=== PATIENT | male | born 1955 | race Caucasian/White ===

== ENCOUNTER 2017-05-27 16:26 | Emergency (ER) | payer BC ==
[2017-05-27 16:49] VITALS: BP 167/78; RESP 17; TEMP 97.6
[2017-05-27] MEDS ORDERED: methylPREDNISolone SOD SUCCI 125 MG/2 ML VIAL IM STA (17:10)
[2017-05-27] MEDS ORDERED: IPRATROPIUM-ALBUTEROL 3 ML NEB INHALATION STA (17:10)
--- NOTE | 2017-05-27 17:12 | ED ---
General Adult HPI - General Chief complaint: Upper Respiratory Infection Stated complaint: Cough Time Seen by Provider: 05/27/17 17:05 Source: patient, RN notes reviewed Mode of arrival: ambulatory Limitations: no limitations - History of Present Illness Initial comments: Patient is a 62-year-old male who presents emergency room today with cough congestion over the last 2 weeks. He does admit that he had an upper respiratory infection and started things off prior to weeks ago. He states the last 2 weeks she's had persistent call. Does admit to sputum production that is been green in color. Patient does admit that he follow-up with the family doctor who called in a Z-Lauro and steroids which she has been on for the past 3 days with little improvement. Patient denies any recent fever, chills, shortness of breath, chest pain, back pain, abdominal pain, nausea or vomiting, numbness or tingling, dysuria or hematuria, or any other complaints. - Related Data Previous Rx's Medication Instructions Recorded Albuterol Inhaler [Ventolin Hfa 1 - 2 puff INHALATION Q4-6H PRN #1 05/27/17 Inhaler] inhaler Albuterol Nebulized [Ventolin 2.5 mg INHALATION Q4H PRN 10 Days 05/27/17 Nebulized] nebu Tvvm-Xtcr-Tkg 6.25-5-10Mg/5Ml 5 ml PO Q4-6H 5 Days ml 05/27/17 [Phenergan VC with Codeine] predniSONE 50 mg PO DAILY #5 tab 05/27/17 Allergies Allergy/AdvReac Type Severity Reaction Status Date / Time meperidine [From Demerol] Allergy Rash/Hives Verified 05/27/17 16:49 Review of Systems ROS Statement: Those systems with pertinent positive or pertinent negative responses have been documented in the HPI. ROS Other: All systems not noted in ROS Statement are negative. Past Medical History Past Medical History: Diabetes Mellitus, GERD/Reflux, Hyperlipidemia, Hypertension History of Any Multi-Drug Resistant Organisms: None Reported Past Surgical History: Coronary Bypass/CABG, Joint Replacement Additional Past Surgical History / Comment(s): bilateral knees Past Psychological History: No Psychological Hx Reported Smoking Status: Never smoker Past Alcohol Use History: Occasional Past Drug Use History: None Reported General Exam - General Exam Comments Initial Comments: General: The patient is awake and alert, in no distress, and does not appear acutely ill. Eye: Pupils are equal, round and reactive to light, extra-ocular movements are intact. No nystagmus. There is normal conjunctiva bilaterally. No signs of icterus. Ears, nose, mouth and throat: There are moist mucous membranes and no oral lesions. Neck: The neck is supple, there is no tenderness or JVD. Cardiovascular: There is a regular rate and rhythm. No murmur, rub or gallop is appreciated. Respiratory: bilateral expiratory wheeze. respirations are non-labored, breath sounds are equal. No stridor, rales, or rhonchi. Musculoskeletal: Normal ROM, no tenderness. Strength 5/5. Sensation intact. Pulses equal bilaterally 2+. Neurological: A&O x 3. CN II-XII intact, There are no obvious motor or sensory deficits. Coordination appears grossly intact. Speech is normal. Skin: Skin is warm and dry and no rashes or lesions are noted. Psychiatric: Cooperative, appropriate mood & affect, normal judgment. Limitations: no limitations Course Vital Signs 05/27/17 05/27/17 05/27/17 16:46 17:22 17:32 Temperature 97.6 F Pulse Rate 63 63 65 Respiratory 17 Rate Blood Pressure 167/78 O2 Sat by Pulse 96 Oximetry Medical Decision Making - Medical Decision Making Patient reexamined at this time shows no signs of distress. His vital stable. Was given breathing treatment here and steroids. Patient will have his steroid changed from the Medrol Dosepak over to prednisone to see if this improves his symptoms. Will be given a cough medication of Phenergan codeine. His chest x- rays negative for any sign of pneumonia. Advised to continue the Z-Lauro. Patient will also be given an inhaler and albuterol for his nebulizer at home. He is advised faulted family doctor over the next 2 days if there is no improvement or return here to the emergency room symptoms increase worsen. He states understanding and is in agreement. Disposition Clinical Impression: Acute bronchitis Disposition: HOME SELF-CARE Condition: Good Instructions: Acute Bronchitis (ED) Additional Instructions: Please use medication as discussed. Please follow-up with family doctor in the next 2 days of symptoms have not improved. Please return to emergency room if the symptoms increase or worsen or for any other concerns. Prescriptions: Albuterol Inhaler [Ventolin Hfa Inhaler] 1 - 2 puff INHALATION Q4-6H PRN #1 inhaler PRN Reason: Cough Albuterol Nebulized [Ventolin Nebulized] 2.5 mg INHALATION Q4H PRN 10 Days nebu PRN Reason: Cough predniSONE 50 mg PO DAILY #5 tab Dsuh-Kfhm-Wwn 6.25-5-10Mg/5Ml [Phenergan VC with Codeine] 5 ml PO Q4-6H 5 Days ml Referrals: Jorge Urrutia DO [Primary Care Provider] - 1-2 days Time of Disposition: 18:01
--- NOTE | 2017-05-27 17:26 | XR ---
EXAMINATION TYPE: XR chest 2V DATE OF EXAM: 05/27/2017 COMPARISON: 09/12/2010 HISTORY: Cough TECHNIQUE: Frontal and lateral views of the chest are obtained. FINDINGS: There is no heart failure. There is some mild linear density at the left lung base. There are sternal wires. There is no evidence of pleural effusion. IMPRESSION: There is new mild scarring or subsegmental atelectasis at the left lung base compared to old exam. Normal heart.
[2017-05-27 17:33] VITALS: PULSE 65
== END 2017-05-27 18:09 | disposition home or self-care (01) ==
LOC: EC 16:26
DX: J20.9 Acute bronchitis, unspecified (principal); Z88.5 Allergy status to narcotic agent
CPT/HCPCS: 94640; 71046; 99283; 96372; J2930

== ENCOUNTER → 2018-03-02 | Outpatient (CLI) | payer BC ==
[2018-03-02 08:42] LABS: ALT 17 U/L (21-72); AST 17 U/L (17-59); Cholesterol 162 mg/dL (<200); Creatine Kinase 62 U/L (55-170); HDL Cholesterol 33 mg/dL (40-60); LDL Cholesterol,Calculated 90 mg/dL (0-99); Triglycerides 196 mg/dL (<150)
== END ==
LOC: LABWHC1 06:46
PROVIDERS: ATTEND Nurse Practitioner Adult Health
DX: E78.2 Mixed hyperlipidemia (principal)
CPT/HCPCS: 36415; 80061; 82550; 84450; 84460

== ENCOUNTER 2018-06-17 06:11 | Inpatient (IN) | payer BC ==
[2018-06-17] MEDS ORDERED: SODIUM CHLORIDE 0.9% 1,000 ML IV ONE (06:19)
[2018-06-17] MEDS ORDERED: MORPHINE SULFATE 4 MG/ML SYRINGE IVP STA (06:19)
[2018-06-17 06:39] LABS: Basophils # (A) 0.1 k/uL (0-0.2); Basophils % (A) 0 %; Eosinophils # (A) 0.1 k/uL (0-0.7); Eosinophils % (A) 1 %; HCT 40.8 % (39.0-53.0); HGB 13.4 gm/dL (13.0-17.5); Lymphocytes # (A) 1.6 k/uL (1.0-4.8); Lymphocytes % (A) 12 %; MCH 30.6 pg (25.0-35.0); MCHC 32.9 g/dL (31.0-37.0); Mean Platelet Volume 7.4; Monocytes # (A) 0.6 k/uL (0-1.0); Monocytes % (A) 4 %; Neutrophils # (A) 10.2 k/uL (1.3-7.7); Neutrophils % (A) 79 %; Platelet Count 253 k/uL (150-450); RBC 4.39 m/uL (4.30-5.90); RDW 13.7 % (11.5-15.5); WBC 12.9 k/uL (3.8-10.6)
[2018-06-17] MEDS ORDERED: HYDROmorphone 1 MG/ML 1 ML SYRINGE IM STA (06:51)
--- NOTE | 2018-06-17 06:51 | ED ---
Abdominal Pain HPI - General Chief Complaint: Abdominal Pain Stated Complaint: ABD PAIN Time Seen by Provider: 06/17/18 06:17 Source: patient Mode of arrival: ambulatory Limitations: no limitations - History of Present Illness Initial Comments: Swelling is a pleasant 63-year-old gentleman who returns to the emergency department today for reevaluation of persistent left lower quadrant abdominal pain. Patient was seen and evaluated for this yesterday he was diagnosed with an obstructing left ureteral stone. Patient received IV morphine with improvement in his pain yesterday is subsequently discharged home with [place]. Upon discharge home the patient had worsening pain nausea and vomiting, he was then called and upper surgeon for Zofran which improved his nausea but his pain is been uncontrollable throughout the night. Patient reports he took [place] last night and again early this morning with no improvement in his pain. He's been trying to take hot baths with no improvement in his pain. THis morning his pain became overwhelming so he returned to the ER for re-evaluation. - Related Data Home Medications Medication Instructions Recorded Confirmed Aspirin [Adult Low Dose Aspirin EC] 162 mg PO DAILY 06/16/18 06/17/18 Chromium Picolinate 800 mcg PO QAM 06/16/18 06/17/18 Ibuprofen [Motrin Ib] 800 mg PO TID PRN 06/16/18 06/17/18 Ibuprofen/Diphenhydramine HCl 2 cap PO HS 06/16/18 06/17/18 [Advil Pm Liqui-Gels] L.acidoph,Paracasei, B.lactis 4 cap PO BID 06/16/18 06/17/18 [Probiotic] Lisinopril [Zestril] 2.5 mg PO HS 06/16/18 06/17/18 Metoprolol Succinate [Toprol XL] 25 mg PO DAILY 06/16/18 06/17/18 Omeprazole 20 mg PO HS 06/16/18 06/17/18 Simvastatin [Zocor] 40 mg PO HS 06/16/18 06/17/18 metFORMIN HCL 1,000 mg PO BID 06/16/18 06/17/18 Previous Rx's Medication Instructions Recorded HYDROcodone/APAP 5-325MG [[place] 1 tab PO Q6HR PRN #12 tab 06/16/18 5-325] Tamsulosin [Flomax] 0.4 mg PO DAILY #30 cap 06/16/18 Allergies Allergy/AdvReac Type Severity Reaction Status Date / Time meperidine [From Demerol] Allergy Rash/Hives Verified 06/17/18 07:05 Review of Systems ROS Statement: Those systems with pertinent positive or pertinent negative responses have been documented in the HPI. ROS Other: All systems not noted in ROS Statement are negative. Past Medical History Past Medical History: Diabetes Mellitus, GERD/Reflux, Hyperlipidemia, Hypertension Additional Past Medical History / Comment(s): Kidney stones History of Any Multi-Drug Resistant Organisms: None Reported Past Surgical History: Coronary Bypass/CABG, Joint Replacement Additional Past Surgical History / Comment(s): bilateral knees Past Psychological History: No Psychological Hx Reported Smoking Status: Never smoker Past Alcohol Use History: Occasional Past Drug Use History: None Reported General Exam - General Exam Comments Initial Comments: Physical Exam GENERAL: Patient is well-developed and well-nourished. Patient appears uncomfortable, writhing in pain HENT: Normocephalic, Atraumatic. EYES: PERRL, EOMI PULMONARY: Unlabored respirations CARDIOVASCULAR: There is a regular rate and rhythm without any murmurs gallops or rubs. ABDOMEN: Tenderness to palpation left lower quadrant left flank SKIN: Redness of the skin on the abdomen secondary to heating pad use : Deferred NEUROLOGIC: Patient is alert and oriented x3. Moving all extremities spontaneously MUSCULOSKELETAL: Normal extremities with adequate strength and full range of motion. No lower extremity swelling or edema. No calf tenderness. PSYCHIATRIC: Normal psychiatric evaluation. Limitations: no limitations Limitations: no limitations Course Vital Signs 06/17/18 06/17/18 06:12 07:14 Temperature 98.1 F Pulse Rate 52 L 62 Respiratory 20 20 Rate Blood Pressure 139/80 171/109 O2 Sat by Pulse 94 L 96 Oximetry Medical Decision Making - Medical Decision Making She was seen and evaluated history is obtained from patient and review of medical record Labs yesterday indicated the patient's creatinine was increasing, in addition CT scan revealed a chronic obstruction of the right ureter with hydronephrosis on the right as well as an acute obstructing stone on the left Repeat labs ordered Morphine and Zofran were ordered Patient with no improvement in his pain with morphine, Dilaudid was ordered Labs resulted with continuing increasing creatinine now at 2.05 Patient care was discussed with Dr. Garcia whom the patient was supposed to see today, he agrees with plan for observation, patient to be made nothing by mouth for possible cystoscopy Patient and updated on plan and are agreeable Admission orders placed - Lab Data Result diagrams: 06/17/18 06:26 06/17/18 06:26 Lab Results 06/17/18 06/17/18 Range/Units 06:26 06:26 WBC 12.9 H (3.8-10.6) k/uL RBC 4.39 (4.30-5.90) m/uL Hgb 13.4 (13.0-17.5) gm/dL Hct 40.8 (39.0-53.0) % MCV 93.0 (80.0-100.0) fL MCH 30.6 (25.0-35.0) pg MCHC 32.9 (31.0-37.0) g/dL RDW 13.7 (11.5-15.5) % Plt Count 253 (150-450) k/uL Neutrophils % 79 % Lymphocytes % 12 % Monocytes % 4 % Eosinophils % 1 % Basophils % 0 % Neutrophils # 10.2 H (1.3-7.7) k/uL Lymphocytes # 1.6 (1.0-4.8) k/uL Monocytes # 0.6 (0-1.0) k/uL Eosinophils # 0.1 (0-0.7) k/uL Basophils # 0.1 (0-0.2) k/uL Sodium 142 (137-145) mmol/L Potassium 4.5 (3.5-5.1) mmol/L Chloride 107 (98-107) mmol/L Carbon Dioxide 25 (22-30) mmol/L Anion Gap 10 mmol/L BUN 19 (9-20) mg/dL Creatinine 2.05 H (0.66-1.25) mg/dL Est GFR (CKD-EPI)AfAm 39 (>60 ml/min/1.73 sqM) Est GFR (CKD-EPI)NonAf 33 (>60 ml/min/1.73 sqM) Glucose 165 H (74-99) mg/dL Calcium 10.1 (8.4-10.2) mg/dL Disposition Clinical Impression: Hydronephrosis with renal and ureteral calculous obstruction, HROACIO (acute kidney injury), Intractable abdominal pain, Nausea and vomiting, Calculus of kidney, Renal mass, Hydronephrosis Disposition: ADMITTED IP TO THIS HOSP Is patient prescribed a controlled substance at d/c from ED?: No Referrals: Jorge Urrutia DO [Primary Care Provider] - 1-2 days
[2018-06-17 06:53] LABS: Calcium 10.1 mg/dL (8.4-10.2); Potassium 4.5 mmol/L (3.5-5.1)
[2018-06-17] MEDS: ONDANSETRON 4 MG/2 ML VIAL IVP STA ×2 (06:58→09:27)
[2018-06-17] MEDS ORDERED: HYDROmorphone 0.5 MG/0.5 ML SYRINGE IVP PRN (07:29)
[2018-06-17] MEDS ORDERED: ONDANSETRON 4 MG/2 ML VIAL IVP PRN (07:29)
[2018-06-17] MEDS ORDERED: NALOXONE 0.4 MG/ML 1 ML VIAL IV PRN (07:29)
[2018-06-17] MEDS: SODIUM CHLORIDE 0.9% 1,000 ML IV SCH ×2 (08:43→17:12)
[2018-06-17] MEDS ORDERED: IV FLUID CONTINUATION 900 ML IV ONE (09:09)
[2018-06-17] MEDS ORDERED: fentaNYL (PF) 50 MCG/ML 2 ML AMP IV ONE ×2 (09:10→09:18)
--- NOTE | 2018-06-17 09:25 | P.GSHP ---
History of Present Illness H&P Date: 06/17/18 Chief Complaint: Left renal colic The patient is a 63-year-old white male seen in the emergency room yesterday with left renal colic. He was found to have left hydronephrosis due to a 4 mm left proximal ureteral calculus. He was discharged home and given an appointment to be seen in our office today. However, he presented back to the ER with intractable symptoms. His serum creatinine level has increased and he was thus admitted for surgical intervention. Incidentally, the computed tomography scan also showed marked right hydronephrosis due to a 10 x 14 mm right proximal ureteral calculus, as well as a 3.1 x 3.8 cm right solid renal mass. Thinning of the right renal parenchyma was noted. It is noteworthy that the serum creatinine level has been elevated since December 2016. The creatinine level was previously normal. It is possible that his rising creatinine level is the result of the right hydronephrosis, which appears to be long-standing given the thinning of the right renal parenchyma. - Constitutional Constitutional: Denies chills, Denies fever - Gastrointestinal Gastrointestinal: Reports nausea, Reports vomiting - Genitourinary (Female) Genitourinary: Reports flank pain, Reports hematuria, Reports kidney stones, Denies dysuria Past Medical History Past Medical History: Diabetes Mellitus, GERD/Reflux, Hyperlipidemia, Hypertension Additional Past Medical History / Comment(s): Kidney stones History of Any Multi-Drug Resistant Organisms: None Reported Past Surgical History: Coronary Bypass/CABG, Joint Replacement Additional Past Surgical History / Comment(s): bilateral knees Past Psychological History: No Psychological Hx Reported Smoking Status: Never smoker Past Alcohol Use History: Occasional Past Drug Use History: None Reported Medications and Allergies Home Medications Medication Instructions Recorded Confirmed Type Aspirin [Adult Low Dose Aspirin EC] 162 mg PO DAILY 06/16/18 06/17/18 History Chromium Picolinate 800 mcg PO QAM 06/16/18 06/17/18 History HYDROcodone/APAP 5-325MG [[place] 1 tab PO Q6HR PRN #12 tab 06/16/18 06/17/18 Rx 5-325] Ibuprofen [Motrin Ib] 800 mg PO TID PRN 06/16/18 06/17/18 History Ibuprofen/Diphenhydramine HCl 2 cap PO HS 06/16/18 06/17/18 History [Advil Pm Liqui-Gels] L.acidoph,Paracasei, B.lactis 4 cap PO BID 06/16/18 06/17/18 History [Probiotic] Lisinopril [Zestril] 2.5 mg PO HS 06/16/18 06/17/18 History Metoprolol Succinate [Toprol XL] 25 mg PO DAILY 06/16/18 06/17/18 History Omeprazole 20 mg PO HS 06/16/18 06/17/18 History Simvastatin [Zocor] 40 mg PO HS 06/16/18 06/17/18 History Tamsulosin [Flomax] 0.4 mg PO DAILY #30 cap 06/16/18 06/17/18 Rx metFORMIN HCL 1,000 mg PO BID 06/16/18 06/17/18 History Allergies Allergy/AdvReac Type Severity Reaction Status Date / Time meperidine [From Demerol] Allergy Rash/Hives Verified 06/17/18 07:05 Surgical - Exam Vital Signs Temp Pulse Resp BP Pulse Ox 98.1 F 52 L 20 139/80 94 L 06/17/18 06:12 06/17/18 06:12 06/17/18 06:12 06/17/18 06:12 06/17/18 06:12 - General well developed, well nourished, severe pain - Respiratory normal respiratory effort - Abdomen Abdomen: soft, tender (Left-sided tenderness to palpation), no masses, no guarding, no rigid, no rebound - Genitourinary normal penis with no external lesions, testicles non-tender - Psychiatric oriented to time, oriented to person, oriented to place, speech is normal, memory intact Results - Labs 06/17/18 06:26 06/17/18 06:26 Abnormal Lab Results - Last 24 Hours (Table) 06/17/18 06/17/18 Range/Units 06:26 06:26 WBC 12.9 H (3.8-10.6) k/uL Neutrophils # 10.2 H (1.3-7.7) k/uL Creatinine 2.05 H (0.66-1.25) mg/dL Glucose 165 H (74-99) mg/dL Diabetes panel 06/17/18 Range/Units 06:26 Sodium 142 (137-145) mmol/L Potassium 4.5 (3.5-5.1) mmol/L Chloride 107 (98-107) mmol/L Carbon Dioxide 25 (22-30) mmol/L BUN 19 (9-20) mg/dL Creatinine 2.05 H (0.66-1.25) mg/dL Glucose 165 H (74-99) mg/dL Calcium 10.1 (8.4-10.2) mg/dL Calcium panel 06/17/18 Range/Units 06:26 Calcium 10.1 (8.4-10.2) mg/dL Pituitary panel 06/17/18 Range/Units 06:26 Sodium 142 (137-145) mmol/L Potassium 4.5 (3.5-5.1) mmol/L Chloride 107 (98-107) mmol/L Carbon Dioxide 25 (22-30) mmol/L BUN 19 (9-20) mg/dL Creatinine 2.05 H (0.66-1.25) mg/dL Glucose 165 H (74-99) mg/dL Calcium 10.1 (8.4-10.2) mg/dL Adrenal panel 06/17/18 Range/Units 06:26 Sodium 142 (137-145) mmol/L Potassium 4.5 (3.5-5.1) mmol/L Chloride 107 (98-107) mmol/L Carbon Dioxide 25 (22-30) mmol/L BUN 19 (9-20) mg/dL Creatinine 2.05 H (0.66-1.25) mg/dL Glucose 165 H (74-99) mg/dL Calcium 10.1 (8.4-10.2) mg/dL - Imaging CT scan - abdomen: report reviewed, image reviewed Assessment and Plan (1) Bilateral ureteral calculi Current Visit: Yes Status: Acute Code(s): N20.1 - CALCULUS OF URETER SNOMED Code(s): 55318478 (2) Hydronephrosis with ureteral calculus Current Visit: Yes Status: Acute Code(s): N13.2 - HYDRONEPHROSIS WITH RENAL AND URETERAL CALCULOUS OBSTRUCTION SNOMED Code(s): 529825724 (3) Right renal mass Current Visit: Yes Status: Acute Code(s): N28.89 - OTHER SPECIFIED DISORDERS OF KIDNEY AND URETER SNOMED Code(s): 768627979 Plan: I have suggested to Mr. Craft that he undergo cystoscopy, left ureteroscopy with Holmium laser lithotripsy, and bilateral ureteral stent insertion. I am hopeful that his renal function will normalize, to perhaps allow a computed tomography scan with contrast to be performed for better evaluation of the right renal mass. It will also be helpful to assess the function of the right kidney once the obstruction has been relieved, to determine whether the patient would be better served with a partial nephrectomy or a total nephrectomy. The mass is peripherally located and appears to be amenable to a partial nephrectomy , so the consideration is whether the right kidney will function enough to make a partial nephrectomy worthwhile. If a partial nephrectomy is to be performed, he will first require ureteroscopy with laser lithotripsy to treat the proximal ureteral calculus. The rationale for this approach has been reviewed in detail with the patient and his . Potential risks of also been reviewed, which include anesthesia, bleeding, infection, ureteral injury, and inability to successfully fragment the left ureteral calculus or place ureteral stents. Time with Patient: Greater than 30
[2018-06-17] MEDS ORDERED: DEXAMETHASONE SOD PHOS (MDV) 100 MG/10 ML VIAL IV ONE (09:27)
[2018-06-17] MEDS ORDERED: SUCCINYLCHOLINE CHLORIDE 100 MG/5 ML SYR IV ONE (09:39)
[2018-06-17] MEDS ORDERED: NEOSTIGMINE 1 MG/ML 10 ML VIAL ONE (09:39)
[2018-06-17] MEDS ORDERED: ePHEDrine SULFATE/0.9% NACL/PF 50 MG/5 ML SYRINGE IV ONE (09:39)
[2018-06-17] MEDS ORDERED: PROPOFOL 10 MG/ML 20 ML VIAL IV ONE (09:39)
[2018-06-17] MEDS ORDERED: MIDAZOLAM 2 MG/2 ML VIAL ONE (09:39)
[2018-06-17] MEDS ORDERED: LIDOCAINE 1% INJ 10MG/ML (20 ML MDV) ONE (09:39)
[2018-06-17] MEDS ORDERED: GLYCOPYRROLATE 0.2 MG/ML 2 ML VIAL ONE (09:39)
[2018-06-17] MEDS ORDERED: ROCURONIUM BROMIDE 10 MG/ML 10 ML VIAL IV ONE (09:39)
[2018-06-17] MEDS ORDERED: SODIUM CHLORIDE 0.9% 50 ML with ceFAZolin 2,000 MG IV ONE ×2 (10:21)
[2018-06-17] MEDS ORDERED: LACTATED RINGERS 1,000 ML IV ONE (12:43)
--- NOTE | 2018-06-17 12:55 | P.OP ---
Date of Procedure: 06/17/18 Preoperative Diagnosis: Bilateral hydronephrosis secondary to bilateral ureteral calculi Postoperative Diagnosis: Same Procedure(s) Performed: Cystoscopy, bilateral ureteroscopy with Holmium laser lithotripsy, right ureteral stone basketing, bilateral ureteral stent insertion, fulguration of bleeders. Anesthesia: GETA Surgeon: Tyrell Garcia Estimated Blood Loss (ml): 20 IV fluids (ml): 1,200 Pathology: other Condition: stable Disposition: PACU Indications for Procedure: The patient is a 63-year-old white male seen in the emergency room yesterday with left renal colic. He was found to have left hydronephrosis due to a 4 mm left proximal ureteral calculus. He was discharged home and given an appointment to be seen in our office today. However, he presented back to the ER with intractable symptoms. His serum creatinine level has increased and he was thus admitted for surgical intervention. Incidentally, the computed tomography scan also showed marked right hydronephrosis due to a 10 x 14 mm right proximal ureteral calculus, as well as a 3.1 x 3.8 cm right solid renal mass. Thinning of the right renal parenchyma was noted. It is noteworthy that the serum creatinine level has been elevated since December 2016. The creatinine level was previously normal. It is possible that his rising creatinine level is the result of the right hydronephrosis, which appears to be long-standing given the thinning of the right renal parenchyma. Operative Findings: 4 mm left proximal ureteral calculus, fragmented completely. 10 x 14 mm calculus impacted within the right proximal ureter, successfully fragmented. Description of Procedure: The patient was taken to the operating room and placed in the dorsolithotomy position, with legs supported in Aleln stirrups. The external genitalia was prepped and draped sterilely. The 30 lens was used to introduce the 22-Bolivian Stortz cystoscopic sheath through the urethra and into the bladder under direct vision. The prostatic urethra showed evidence of mild lateral lobe enlargement , along with a high median bar that made entry into the bladder difficult.. The bladder was examined in its entirety. Both ureteral orifices were normal anatomic location and configuration. No tumors or foreign bodies were seen. And angled-tip 0.035 inch Glidewire was passed through the cystoscope. The left ureteral orifice was cannulated, and the Glidewire was advanced up to the left renal pelvis. An 11/13-Bolivian ureteral access catheter was passed over the wire, up to the proximal ureter. The mini flexible ureteroscope was passed through the ureteral access catheter sheath and up to the calculus within the left proximal ureter. The 200 micron Holmium laser probe was passed through the ureteroscope, and lithotripsy was performed. A portion of the calculus refluxed into the left renal pelvis. The ureteroscope was advanced, and fragmentation of the calculus was completed, leaving no residual calculus fragments exceeding 1-2 mm in size. The Glidewire was passed through the ureteral access catheter sheath, which was then removed. The Glidewire was backloaded into the cystoscope, which was passed into the bladder. A 26 cm, 6- [place]ian double-J ureteral stent was placed over the wire. Proper stent positioning was verified fluoroscopically and endoscopically. The Glidewire was then passed through the cystoscope once again, and the right ureteral orifice was cannulated. The Glidewire was advanced up to the large calculus at the ureteropelvic junction, but the Glidewire would not pass beyond the calculus. Therefore, the ureteral access catheter was passed over the wire , up to the proximal ureter, and ureteroscopy with laser lithotripsy was again performed. This calculus was quite dense, and impacted was significant edema of the ureter surrounding it. As fragments broke away, Stone basketing was performed using the 1.9-Bolivian nitinol basket. This was continued until the calculus had been fragmented completely, allowing passage of the ureteroscope into the renal pelvis. The Glidewire was passed through the ureteroscope, which was then withdrawn along with the ureteral access catheter sheath. A number of ureteral calculus fragments remained within the ureter. The Glidewire was backloaded into the cystoscope, which was passed into the bladder. A 26 cm, 6-Bolivian double-J ureteral stent was placed over the wire. Proper stent positioning was verified fluoroscopically and endoscopically. Oozing of the posterior vesicle neck was noted. This was controlled with the Bugbee electrode. The cystoscope was then removed, and an 18-Bolivian coud-tip Gonzalez catheter was placed. The return was pink tinged. The patient tolerated the procedure well and was taken to the recovery room in stable condition.
[2018-06-17 13:11] LABS: Glucose,Whole Blood 174 mg/dL (75-99)
--- NOTE | 2018-06-17 13:18 | FL ---
EXAMINATION TYPE: FL urography retrograde DATE OF EXAM: 06/17/2018 COMPARISON: NONE HISTORY: Bilateral stent insertion TECHNIQUE: Fluoroscopy. FINDINGS: Fluoroscopic guidance was provided during procedure performed 1 min 41 sec fl-1 image IMPRESSION: As Above.
[2018-06-17] MEDS ORDERED: HYDROcodone/APAP 5-325MG 1 EACH TAB PO PRN (13:37)
[2018-06-17] MEDS ORDERED: IBUPROFEN 800 MG TAB PO PRN (13:37)
[2018-06-17 14:14] LABS: Glucose,Whole Blood 184 mg/dL (75-99)
[2018-06-17 17:18] LABS: Glucose,Whole Blood 202 mg/dL (75-99)
[2018-06-17] MEDS ORDERED: PANTOPRAZOLE 40 MG TABLET PO SCH (17:30)
[2018-06-17] MEDS: INSULIN ASPART 100 UNIT/ML 1 ML 10 ML VIAL SQ SCH ×2 (17:30→22:02)
[2018-06-17 20:35] LABS: Glucose,Whole Blood 208 mg/dL (75-99)
[2018-06-17] MEDS ORDERED: LISINOPRIL 2.5 MG TAB PO SCH (21:00)
[2018-06-17] MEDS ORDERED: ATORVASTATIN 20 MG TAB PO SCH (21:00)
[2018-06-17] MEDS: metFORMIN 500 MG TAB PO SCH (22:02)
[2018-06-17 22:43] LABS: Hemoglobin A1C 7.3 % (4.0-6.0)
[2018-06-18 07:34] LABS: Glucose,Whole Blood 121 mg/dL (75-99)
[2018-06-18 07:51] VITALS: BP 135/67; PULSE 110; RESP 16; TEMP 97.7
[2018-06-18] MEDS ORDERED: TAMSULOSIN 0.4 MG CAP.ER.24H PO SCH (09:00)
[2018-06-18] MEDS ORDERED: METOPROLOL SUCCINATE (ER) 25 MG TAB.ER.24H PO SCH (09:00)
[2018-06-18 09:04] LABS: Potassium 4.3 mmol/L (3.5-5.1)
[2018-06-18] MEDS: INSULIN ASPART 100 UNIT/ML 1 ML 10 ML VIAL SQ SCH (09:35)
[2018-06-18] MEDS: metFORMIN 500 MG TAB PO SCH (09:38)
[2018-06-18 12:31] LABS: Glucose,Whole Blood 138 mg/dL (75-99)
--- NOTE | 2018-06-19 14:06 | P.DS ---
Providers Date of admission: 06/18/18 10:01 Expected date of discharge: 06/18/18 Attending physician: Tyrell Garcia Primary care physician: Jorge Urrutia - Discharge Diagnosis(es) (1) Bilateral ureteral calculi Status: Acute (2) Hydronephrosis with ureteral calculus Status: Acute (3) Right renal mass Status: Acute Hospital Course: The patient was admitted with left renal colic. A computed tomography scan showed evidence of left hydronephrosis due to a 4 mm left proximal ureteral calculus. The computed tomography scan also showed severe right hydronephrosis due to a 10 x 14 mm right proximal ureteral calculus at the ureteropelvic junction, as well as a right solid renal mass. His pain was severe, and shortly after admission he underwent bilateral ureteroscopy with Holmium laser lithotripsy with bilateral ureteral stent insertion. The following day, he felt markedly better and the urine was clearing. His Gonzalez catheter was removed and he was discharged home. His serum creatinine level was somewhat improved at the time of discharge (1.75). He will keep his previously scheduled appointment with Dr. Camarena on 07/06/2018. A BMP will be checked prior to that appointment to assess his renal function. Procedures: Cystoscopy, bilateral ureteroscopy with Holmium laser lithotripsy, right ureteral stone basketing, bilateral ureteral stent insertion on 06/17/2018. Patient Condition at Discharge: Good Plan - Discharge Summary New Discharge Prescriptions: No Action Ibuprofen/Diphenhydramine HCl [Advil Pm Liqui-Gels] 2 cap PO HS L.acidoph,Paracasei, B.lactis [Probiotic] 4 cap PO BID Chromium Picolinate 800 mcg PO QAM Aspirin [Adult Low Dose Aspirin EC] 162 mg PO DAILY metFORMIN HCL 1,000 mg PO BID Simvastatin [Zocor] 40 mg PO HS Omeprazole 20 mg PO HS Metoprolol Succinate [Toprol XL] 25 mg PO DAILY Lisinopril [Zestril] 2.5 mg PO HS Ibuprofen [Motrin Ib] 800 mg PO TID PRN PRN Reason: Pain HYDROcodone/APAP 5-325MG [[place] 5-325] 1 tab PO Q6HR PRN #12 tab PRN Reason: Pain Tamsulosin [Flomax] 0.4 mg PO DAILY #30 cap Discharge Medication List Aspirin [Adult Low Dose Aspirin EC] 162 mg PO DAILY 06/16/18 [History] Chromium Picolinate 800 mcg PO QAM 06/16/18 [History] HYDROcodone/APAP 5-325MG [[place] 5-325] 1 tab PO Q6HR PRN #12 tab 06/16/18 [Rx] Ibuprofen [Motrin Ib] 800 mg PO TID PRN 06/16/18 [History] Ibuprofen/Diphenhydramine HCl [Advil Pm Liqui-Gels] 2 cap PO HS 06/16/18 [ History] L.acidoph,Paracasei, B.lactis [Probiotic] 4 cap PO BID 06/16/18 [History] Lisinopril [Zestril] 2.5 mg PO HS 06/16/18 [History] Metoprolol Succinate [Toprol XL] 25 mg PO DAILY 06/16/18 [History] Omeprazole 20 mg PO HS 06/16/18 [History] Simvastatin [Zocor] 40 mg PO HS 06/16/18 [History] Tamsulosin [Flomax] 0.4 mg PO DAILY #30 cap 06/16/18 [Rx] metFORMIN HCL 1,000 mg PO BID 06/16/18 [History] Follow up Appointment(s)/Referral(s): Jorge Urrutia DO [Primary Care Provider] - 1-2 days Tyrell Garcia MD [STAFF PHYSICIAN] - 07/06/18 Discharge Disposition: HOME SELF-CARE
== END 2018-06-18 15:28 | disposition home or self-care (01) | DRG 661 ==
LOC: EC 06:11 → 4SSUR 07:29 → OBSVTOIN 06-18 10:01
PROVIDERS: ADMIT Urology; ATTEND Urology
PROC: 0TC68ZZ Extirpation of Matter from Right Ureter, Via Natural or Artificial Opening Endoscopic (ICD-10-PCS; 2018-06-17)
PROC: 0T788DZ Dilation of Bilateral Ureters with Intraluminal Device, Via Natural or Artificial Opening Endoscopic (ICD-10-PCS; 2018-06-17)
PROC: 0TC78ZZ Extirpation of Matter from Left Ureter, Via Natural or Artificial Opening Endoscopic (ICD-10-PCS; principal; 2018-06-17 08:45)
DX: N13.2 Hydronephrosis with renal and ureteral calculous obstruction (principal); N28.89 Other specified disorders of kidney and ureter; N17.9 Acute kidney failure, unspecified; E11.9 Type 2 diabetes mellitus without complications; E78.5 Hyperlipidemia, unspecified; I10 Essential (primary) hypertension; K21.9 Gastro-esophageal reflux disease without esophagitis; I25.10 Atherosclerotic heart disease of native coronary artery without angina pectoris; Z79.82 Long term (current) use of aspirin; Z79.84 Long term (current) use of oral hypoglycemic drugs; Z79.899 Other long term (current) drug therapy; Z87.442 Personal history of urinary calculi; Z95.1 Presence of aortocoronary bypass graft; Z96.60 Presence of unspecified orthopedic joint implant
CPT/HCPCS: 36415; 74420; 80048; 82365; 83036; 85025; 96361; 96372; 96374; 96375; 99285

== ENCOUNTER 2018-06-23 13:23 | Observation (INO) | payer BC ==
[2018-06-23] MEDS ORDERED: METOCLOPRAMIDE 5 MG/ML 2 ML VIAL IVP STA ×2 (14:16→18:55)
[2018-06-23] MEDS ORDERED: HYDROmorphone 1 MG/ML 1 ML SYRINGE IVP STA ×2 (14:16→17:48)
[2018-06-23] MEDS ORDERED: SODIUM CHLORIDE 0.9% 1,000 ML IV STA (14:16)
--- NOTE | 2018-06-23 14:20 | ED ---
General Adult HPI - General Source: patient, family, RN notes reviewed Mode of arrival: wheelchair Limitations: no limitations <Rigoberto Garcia - Last Filed: 06/23/18 16:02> <Darío Robins - Last Filed: 06/23/18 20:12> - General Chief complaint: Abdominal Pain Stated complaint: Flank pain Time Seen by Provider: 06/23/18 13:48 - History of Present Illness Initial comments: Patient is a pleasant [age]-year-old male presenting to the emergency Department with complaints of left-sided flank pain. Onset of symptoms was this morning. Patient did have stent removed from the left side this morning with Dr. Camarena. Patient does have known history of multiple previous kidney stones. Symptoms are similar to previous kidney stone. Patient has discomfort left posterior flank/CVA region. There is some radiation towards left lower abdomen. Patient has been sweaty and nauseated. No vomiting. Discomfort is severe at this time. (Rigoberto Garcia) - Related Data Home Medications Medication Instructions Recorded Confirmed Aspirin [Adult Low Dose Aspirin EC] 162 mg PO DAILY 06/16/18 06/23/18 Chromium Picolinate 800 mcg PO QAM 06/16/18 06/23/18 Ibuprofen [Motrin Ib] 800 mg PO TID PRN 06/16/18 06/23/18 Ibuprofen/Diphenhydramine HCl 2 cap PO HS 06/16/18 06/23/18 [Advil Pm Liqui-Gels] L.acidoph,Paracasei, B.lactis 4 cap PO BID 06/16/18 06/23/18 [Probiotic] Lisinopril [Zestril] 2.5 mg PO HS 06/16/18 06/23/18 Metoprolol Succinate [Toprol XL] 25 mg PO DAILY 06/16/18 06/23/18 Omeprazole 20 mg PO HS 06/16/18 06/23/18 Simvastatin [Zocor] 40 mg PO HS 06/16/18 06/23/18 metFORMIN HCL 1,000 mg PO BID 06/16/18 06/23/18 Previous Rx's Medication Instructions Recorded HYDROcodone/APAP 5-325MG [[place] 1 tab PO Q6HR PRN #12 tab 06/16/18 5-325] Tamsulosin [Flomax] 0.4 mg PO DAILY #30 cap 06/16/18 Allergies Allergy/AdvReac Type Severity Reaction Status Date / Time meperidine [From Demerol] Allergy Rash/Hives Verified 06/23/18 14:12 Review of Systems ROS Other: All systems not noted in ROS Statement are negative. Constitutional: Denies: fever Eyes: Denies: eye pain ENT: Denies: ear pain Respiratory: Denies: cough Cardiovascular: Denies: chest pain Endocrine: Denies: fatigue Gastrointestinal: Reports: as per HPI, abdominal pain, nausea. Denies: vomiting Genitourinary: Denies: dysuria Musculoskeletal: Reports: as per HPI Skin: Denies: rash Neurological: Denies: weakness <Rigoberto Garcia - Last Filed: 06/23/18 16:02> ROS Other: All systems not noted in ROS Statement are negative. <Darío Robins - Last Filed: 06/23/18 20:12> ROS Statement: Those systems with pertinent positive or pertinent negative responses have been documented in the HPI. Past Medical History Past Medical History: Diabetes Mellitus, GERD/Reflux, Hyperlipidemia, Hypertension Additional Past Medical History / Comment(s): Kidney stones History of Any Multi-Drug Resistant Organisms: None Reported Past Surgical History: Coronary Bypass/CABG, Joint Replacement Additional Past Surgical History / Comment(s): bilateral knees, lithotripsy and renal stents Past Psychological History: No Psychological Hx Reported Smoking Status: Never smoker Past Alcohol Use History: Occasional Past Drug Use History: None Reported - Past Family History Mother History Unknown: Yes Father History Unknown: Yes <Rigoberto Garcia - Last Filed: 06/23/18 16:02> General Exam Limitations: no limitations General appearance: alert Head exam: Present: atraumatic Eye exam: Present: normal appearance Neck exam: Present: normal inspection Respiratory exam: Present: normal lung sounds bilaterally Cardiovascular Exam: Present: regular rate, normal rhythm Expanded Peripheral pulses: 2+: Dorsalis Pedis (R), Dorsalis Pedis (L) GI/Abdominal exam: Present: soft, tenderness (Mild tenderness left lower abdomen ), normal bowel sounds. Absent: distended, guarding, rebound, rigid, pulsatile mass Extremities exam: Present: normal inspection Back exam: Present: CVA tenderness (L) Neurological exam: Present: alert Psychiatric exam: Present: normal affect, normal mood Skin exam: Present: normal color <Rigoberto Garcia - Last Filed: 06/23/18 16:02> Course <Rigoberto Garcia - Last Filed: 06/23/18 16:02> <Darío Robins - Last Filed: 06/23/18 20:12> Vital Signs 06/23/18 13:30 Temperature 97.9 F Pulse Rate 58 L Respiratory 26 H Rate Blood Pressure 166/91 O2 Sat by Pulse 96 Oximetry - Reevaluation(s) Reevaluation #1: 06/23/18 16:02 Patient reevaluated and significantly improved, only mild discomfort at this time. Case was crusted detail with Dr. Camarena who would like patient further observed in the emergency department. (Rigoberto Garcia) Medical Decision Making - Lab Data Result diagrams: 06/23/18 14:15 06/23/18 14:15 <Rigoberto Garcia - Last Filed: 06/23/18 16:02> - Lab Data Result diagrams: 06/23/18 14:15 06/23/18 14:15 <Darío Robins - Last Filed: 06/23/18 20:12> - Medical Decision Making He was endorsed me by Dr. Garcia at our shift change. The initial plan was to discharge the patient for pain control. Patient had recurrent episodes of pain and recurrent episodes of vomiting. I did discuss the case with Dr. Garcia and 2 occasions. Patient is failing treatment and will be admitted for IV fluids and pain and nausea vomiting control. (Darío Robins) - Lab Data Lab Results 06/23/18 06/23/18 06/23/18 Range/Units 14:15 14:15 14:15 WBC 12.5 H (3.8-10.6) k/uL RBC 4.42 (4.30-5.90) m/uL Hgb 13.3 (13.0-17.5) gm/dL Hct 40.8 (39.0-53.0) % MCV 92.2 (80.0-100.0) fL MCH 30.2 (25.0-35.0) pg MCHC 32.7 (31.0-37.0) g/dL RDW 13.5 (11.5-15.5) % Plt Count 275 (150-450) k/uL Neutrophils % 75 % Lymphocytes % 14 % Monocytes % 5 % Eosinophils % 3 % Basophils % 1 % Neutrophils # 9.4 H (1.3-7.7) k/uL Lymphocytes # 1.7 (1.0-4.8) k/uL Monocytes # 0.6 (0-1.0) k/uL Eosinophils # 0.4 (0-0.7) k/uL Basophils # 0.1 (0-0.2) k/uL PT 10.3 (9.0-12.0) sec INR 1.0 (<1.2) APTT 23.7 (22.0-30.0) sec Sodium 141 (137-145) mmol/L Potassium 4.1 (3.5-5.1) mmol/L Chloride 110 H (98-107) mmol/L Carbon Dioxide 22 (22-30) mmol/L Anion Gap 9 mmol/L BUN 17 (9-20) mg/dL Creatinine 1.69 H (0.66-1.25) mg/dL Est GFR (CKD-EPI)AfAm 49 (>60 ml/min/1.73 sqM) Est GFR (CKD-EPI)NonAf 42 (>60 ml/min/1.73 sqM) Glucose 133 H (74-99) mg/dL Calcium 9.4 (8.4-10.2) mg/dL Total Bilirubin 0.6 (0.2-1.3) mg/dL AST 17 (17-59) U/L ALT 22 (21-72) U/L Alkaline Phosphatase 57 (38-126) U/L Total Protein 6.5 (6.3-8.2) g/dL Albumin 3.8 (3.5-5.0) g/dL Amylase 41 (30-110) U/L Lipase 80 (23-300) U/L Urine Color Urine Appearance (Clear) Urine pH (5.0-8.0) Ur Specific [place] (1.001-1.035) Urine Protein (Negative) Urine Glucose (UA) (Negative) Urine Ketones (Negative) Urine Blood (Negative) Urine Nitrite (Negative) Urine Bilirubin (Negative) Urine Urobilinogen (<2.0) mg/dL Ur Leukocyte Esterase (Negative) Urine RBC (0-5) /hpf Urine WBC (0-5) /hpf Ur Squamous Epith Cells (0-4) /hpf Urine Bacteria (None) /hpf Urine Mucus (None) /hpf 06/23/18 Range/Units 15:15 WBC (3.8-10.6) k/uL RBC (4.30-5.90) m/uL Hgb (13.0-17.5) gm/dL Hct (39.0-53.0) % MCV (80.0-100.0) fL MCH (25.0-35.0) pg MCHC (31.0-37.0) g/dL RDW (11.5-15.5) % Plt Count (150-450) k/uL Neutrophils % % Lymphocytes % % Monocytes % % Eosinophils % % Basophils % % Neutrophils # (1.3-7.7) k/uL Lymphocytes # (1.0-4.8) k/uL Monocytes # (0-1.0) k/uL Eosinophils # (0-0.7) k/uL Basophils # (0-0.2) k/uL PT (9.0-12.0) sec INR (<1.2) APTT (22.0-30.0) sec Sodium (137-145) mmol/L Potassium (3.5-5.1) mmol/L Chloride (98-107) mmol/L Carbon Dioxide (22-30) mmol/L Anion Gap mmol/L BUN (9-20) mg/dL Creatinine (0.66-1.25) mg/dL Est GFR (CKD-EPI)AfAm (>60 ml/min/1.73 sqM) Est GFR (CKD-EPI)NonAf (>60 ml/min/1.73 sqM) Glucose (74-99) mg/dL Calcium (8.4-10.2) mg/dL Total Bilirubin (0.2-1.3) mg/dL AST (17-59) U/L ALT (21-72) U/L Alkaline Phosphatase (38-126) U/L Total Protein (6.3-8.2) g/dL Albumin (3.5-5.0) g/dL Amylase (30-110) U/L Lipase (23-300) U/L Urine Color Yellow Urine Appearance Cloudy (Clear) Urine pH 5.5 (5.0-8.0) Ur Specific [place] 1.016 (1.001-1.035) Urine Protein 1+ H (Negative) Urine Glucose (UA) Negative (Negative) Urine Ketones Negative (Negative) Urine Blood Large H (Negative) Urine Nitrite Negative (Negative) Urine Bilirubin Negative (Negative) Urine Urobilinogen <2.0 (<2.0) mg/dL Ur Leukocyte Esterase Large H (Negative) Urine RBC >182 H (0-5) /hpf Urine WBC 89 H (0-5) /hpf Ur Squamous Epith Cells <1 (0-4) /hpf Urine Bacteria Rare H (None) /hpf Urine Mucus Rare H (None) /hpf Disposition <Rigoberto Garcia - Last Filed: 06/23/18 16:02> <Darío Robins - Last Filed: 06/23/18 20:12> Clinical Impression: Intractable vomiting, Intractable abdominal pain Disposition: ADMITTED IP TO THIS HOSP Condition: Stable Referrals: Jorge Urrutia DO [Primary Care Provider] - 1-2 days
[2018-06-23 14:51] LABS: Basophils # (A) 0.1 k/uL (0-0.2); Basophils % (A) 1 %; Eosinophils # (A) 0.4 k/uL (0-0.7); Eosinophils % (A) 3 %; HCT 40.8 % (39.0-53.0); HGB 13.3 gm/dL (13.0-17.5); Lymphocytes # (A) 1.7 k/uL (1.0-4.8); Lymphocytes % (A) 14 %; MCH 30.2 pg (25.0-35.0); MCHC 32.7 g/dL (31.0-37.0); MCV 92.2 fL (80.0-100.0); Mean Platelet Volume 7.3; Monocytes # (A) 0.6 k/uL (0-1.0); Monocytes % (A) 5 %; Neutrophils # (A) 9.4 k/uL (1.3-7.7); Neutrophils % (A) 75 %; Platelet Count 275 k/uL (150-450); RBC 4.42 m/uL (4.30-5.90); RDW 13.5 % (11.5-15.5); WBC 12.5 k/uL (3.8-10.6)
[2018-06-23 15:00] LABS: Partial Thromboplastin Time 23.7 sec (22.0-30.0); Prothrombin Time 10.3 sec (9.0-12.0)
[2018-06-23 15:16] LABS: Albumin 3.8 g/dL (3.5-5.0); Calcium 9.4 mg/dL (8.4-10.2); Potassium 4.1 mmol/L (3.5-5.1); Total Bilirubin 0.6 mg/dL (0.2-1.3); Total Protein 6.5 g/dL (6.3-8.2)
--- NOTE | 2018-06-23 15:19 | XR ---
EXAMINATION TYPE: XR KUB DATE OF EXAM: 06/23/2018 COMPARISON: 06/16/2018 INDICATION: Abdominal pain left kidney pain TECHNIQUE: Single view abdomen upright view FINDINGS: There is a normal bowel gas pattern. No free air is evident. Psoas margins are normal. No organomegaly is present. There is a 0.3 cm calcification overlying the inferior pole left kidney. There is a 1.1 cm calcificat ion within the inferior pole right kidney. Double pigtail catheter ureteral stent is present on the r ight. Previous larger calcification in the right midabdomen is no longer visualized. IMPRESSION: 1. Right ureteral stent. 2. Right renal stones appear smaller than comparison. 3. Punctate left renal stone.
[2018-06-23 15:48] LABS: Appearance,Urine Cloudy (Clear); Bacteria,Urine Rare /hpf; Bilirubin,Urine Negative (Negative); Blood,Urine Large (Negative); Color,Urine Yellow; Glucose,Urine (UA) Negative (Negative); Ketones,Urine Negative (Negative); Leukocyte Esterase,Urine Large (Negative); Mucus,Urine Rare /hpf; Nitrite,Urine Negative (Negative); PH, Urine 5.5 (5.0-8.0); Protein,Urine 1+ (Negative); RBC,Urine >182 /hpf (0-5); Specific Gravity,Urine 1.016 (1.001-1.035); Squamous Epithelial Cell,Urine <1 /hpf (0-4); Urobilinogen,Urine <2.0 mg/dL (<2.0); WBC,Urine 89 /hpf (0-5)
[2018-06-23] MEDS ORDERED: ONDANSETRON 4 MG/2 ML VIAL IVP STA (18:08)
[2018-06-23] MEDS ORDERED: ONDANSETRON 4 MG/2 ML VIAL IVP PRN (20:13)
[2018-06-23] MEDS ORDERED: HYDROmorphone 0.5 MG/0.5 ML SYRINGE IVP PRN (20:13)
[2018-06-23] MEDS ORDERED: NALOXONE 0.4 MG/ML 1 ML VIAL IV PRN (20:13)
[2018-06-23] MEDS ORDERED: LISINOPRIL 2.5 MG TAB PO SCH (21:00)
[2018-06-23] MEDS ORDERED: PANTOPRAZOLE 40 MG TABLET PO SCH (21:00)
[2018-06-23] MEDS ORDERED: ATORVASTATIN 20 MG TAB PO SCH (21:00)
[2018-06-23] MEDS: SODIUM CHLORIDE 0.9% 1,000 ML IV SCH (22:00)
[2018-06-23] MEDS: LACTOBACILLUS ACIDOPH & BULGAR 1 EACH PACKET PO SCH (22:02)
--- NOTE | 2018-06-23 22:31 | P.GSHP ---
History of Present Illness H&P Date: 06/23/18 Chief Complaint: Left flank pain The patient is a 63-year-old white male seen in the emergency room 1 week ago with left renal colic. He was found to have left hydronephrosis due to a 4 mm left proximal ureteral calculus. His serum creatinine level has increased and he was thus admitted for surgical intervention. Incidentally, the computed tomography scan also showed marked right hydronephrosis due to a 10 x 14 mm right proximal ureteral calculus, as well as a 3.1 x 3.8 cm right solid renal mass. Thinning of the right renal parenchyma was noted. It is noteworthy that the serum creatinine level has been elevated since December 2016. The creatinine level was previously normal. He underwent bilateral ureteroscopy with laser lithotripsy on 06/17/2018. Bilateral ureteral stents were placed, and he was discharged home the following day. However, he developed severe left flank pain several days ago. It was felt that this may have been due to the presence of the stent. Therefore, the stent was removed this morning, but he developed severe left flank pain following stent removal and thus presented back to the emergency room. He was treated with Dilaudid, but his pain could not be adequately controlled and he was therefore admitted. - Constitutional Constitutional: Denies chills, Denies fever - Gastrointestinal Gastrointestinal: Reports nausea - Genitourinary (Female) Genitourinary: Reports flank pain, Reports kidney stones Past Medical History Past Medical History: Diabetes Mellitus, GERD/Reflux, Hyperlipidemia, Hypertension Additional Past Medical History / Comment(s): Kidney stones History of Any Multi-Drug Resistant Organisms: None Reported Past Surgical History: Coronary Bypass/CABG, Joint Replacement Additional Past Surgical History / Comment(s): bilateral knees, lithotripsy and renal stents Past Anesthesia/Blood Transfusion Reactions: Previous Problems w/ Anesthesia Additional Past Anesthesia/Blood Transfusion Reaction / Comment(s): slow to recover Past Psychological History: No Psychological Hx Reported Smoking Status: Never smoker Past Alcohol Use History: Occasional Past Drug Use History: None Reported - Past Family History Mother History Unknown: Yes Family Medical History: Coronary Artery Disease (CAD) Father History Unknown: Yes Family Medical History: COPD, Coronary Artery Disease (CAD), Diabetes Mellitus Medications and Allergies Home Medications Medication Instructions Recorded Confirmed Type Aspirin [Adult Low Dose Aspirin EC] 162 mg PO DAILY 06/16/18 06/23/18 History Chromium Picolinate 800 mcg PO QAM 06/16/18 06/23/18 History HYDROcodone/APAP 5-325MG [[place] 1 tab PO Q6HR PRN #12 tab 06/16/18 06/23/18 Rx 5-325] Ibuprofen [Motrin Ib] 800 mg PO TID PRN 06/16/18 06/23/18 History Ibuprofen/Diphenhydramine HCl 2 cap PO HS 06/16/18 06/23/18 History [Advil Pm Liqui-Gels] L.acidoph,Paracasei, B.lactis 4 cap PO BID 06/16/18 06/23/18 History [Probiotic] Lisinopril [Zestril] 2.5 mg PO HS 06/16/18 06/23/18 History Metoprolol Succinate [Toprol XL] 25 mg PO DAILY 06/16/18 06/23/18 History Omeprazole 20 mg PO HS 06/16/18 06/23/18 History Simvastatin [Zocor] 40 mg PO HS 06/16/18 06/23/18 History Tamsulosin [Flomax] 0.4 mg PO DAILY #30 cap 06/16/18 06/23/18 Rx metFORMIN HCL 1,000 mg PO BID 06/16/18 06/23/18 History Allergies Allergy/AdvReac Type Severity Reaction Status Date / Time meperidine [From Demerol] Allergy Rash/Hives Verified 06/23/18 14:12 Surgical - Exam Vital Signs Temp Pulse Resp BP Pulse Ox 97.9 F 58 L 26 H 166/91 96 06/23/18 13:30 06/23/18 13:30 06/23/18 13:30 06/23/18 13:30 06/23/18 13:30 - General well developed, well nourished, no distress - Respiratory normal respiratory effort - Abdomen Abdomen: soft, non tender, no guarding, no rigid, no rebound - Genitourinary normal penis with no external lesions, testicles non-tender - Psychiatric oriented to time, oriented to person, oriented to place, speech is normal, memory intact Results - Labs 06/23/18 14:15 06/23/18 14:15 Abnormal Lab Results - Last 24 Hours (Table) 06/23/18 06/23/18 06/23/18 Range/Units 14:15 14:15 15:15 WBC 12.5 H (3.8-10.6) k/uL Neutrophils # 9.4 H (1.3-7.7) k/uL Chloride 110 H (98-107) mmol/L Creatinine 1.69 H (0.66-1.25) mg/dL Glucose 133 H (74-99) mg/dL Urine Protein 1+ H (Negative) Urine Blood Large H (Negative) Ur Leukocyte Esterase Large H (Negative) Urine RBC >182 H (0-5) /hpf Urine WBC 89 H (0-5) /hpf Urine Bacteria Rare H (None) /hpf Urine Mucus Rare H (None) /hpf Diabetes panel 06/23/18 Range/Units 14:15 Sodium 141 (137-145) mmol/L Potassium 4.1 (3.5-5.1) mmol/L Chloride 110 H (98-107) mmol/L Carbon Dioxide 22 (22-30) mmol/L BUN 17 (9-20) mg/dL Creatinine 1.69 H (0.66-1.25) mg/dL Glucose 133 H (74-99) mg/dL Calcium 9.4 (8.4-10.2) mg/dL AST 17 (17-59) U/L ALT 22 (21-72) U/L Alkaline Phosphatase 57 (38-126) U/L Total Protein 6.5 (6.3-8.2) g/dL Albumin 3.8 (3.5-5.0) g/dL Calcium panel 06/23/18 Range/Units 14:15 Calcium 9.4 (8.4-10.2) mg/dL Albumin 3.8 (3.5-5.0) g/dL Pituitary panel 06/23/18 Range/Units 14:15 Sodium 141 (137-145) mmol/L Potassium 4.1 (3.5-5.1) mmol/L Chloride 110 H (98-107) mmol/L Carbon Dioxide 22 (22-30) mmol/L BUN 17 (9-20) mg/dL Creatinine 1.69 H (0.66-1.25) mg/dL Glucose 133 H (74-99) mg/dL Calcium 9.4 (8.4-10.2) mg/dL Adrenal panel 06/23/18 Range/Units 14:15 Sodium 141 (137-145) mmol/L Potassium 4.1 (3.5-5.1) mmol/L Chloride 110 H (98-107) mmol/L Carbon Dioxide 22 (22-30) mmol/L BUN 17 (9-20) mg/dL Creatinine 1.69 H (0.66-1.25) mg/dL Glucose 133 H (74-99) mg/dL Calcium 9.4 (8.4-10.2) mg/dL Total Bilirubin 0.6 (0.2-1.3) mg/dL AST 17 (17-59) U/L ALT 22 (21-72) U/L Alkaline Phosphatase 57 (38-126) U/L Total Protein 6.5 (6.3-8.2) g/dL Albumin 3.8 (3.5-5.0) g/dL Assessment and Plan (1) Hydronephrosis with renal and ureteral calculous obstruction Current Visit: No Status: Acute Code(s): N13.2 - HYDRONEPHROSIS WITH RENAL AND URETERAL CALCULOUS OBSTRUCTION SNOMED Code(s): 472942414 (2) Calculus of ureter Current Visit: No Status: Acute Code(s): N20.1 - CALCULUS OF URETER SNOMED Code(s): 02124585 Plan: The patient is admitted for pain management. He is feeling somewhat better this evening, though this is hard to evaluate given that he has received Dilaudid. I am hopeful that his left flank discomfort will gradually resolve. If his pain persists, he may require a repeat computed tomography scan for further evaluation.
[2018-06-24] MEDS: SODIUM CHLORIDE 0.9% 1,000 ML IV SCH (04:57)
[2018-06-24] MEDS ORDERED: metFORMIN 500 MG TAB PO SCH (07:30)
--- NOTE | 2018-06-24 07:49 | P.DS ---
Providers Date of admission: 06/23/18 20:13 Attending physician: Tyrell Garcia Primary care physician: [facility] Course: The patient was admitted to the hospital because of intractable left flank pain post-stent removal. He has done well. He feels much better. Assuming he ambulates without difficulty he'll be discharged home later. He'll be given a small prescription of [place]. He'll follow-up with on 07/06/2018 as previously ordered. His condition is good. Patient Condition at Discharge: Stable Plan - Discharge Summary Discharge Rx Participant: No New Discharge Prescriptions: New HYDROcodone/APAP 5-325MG [[place] 5-325] 1 tab PO Q4HR PRN #10 tab PRN Reason: Pain No Action Ibuprofen/Diphenhydramine HCl [Advil Pm Liqui-Gels] 2 cap PO HS L.acidoph,Paracasei, B.lactis [Probiotic] 4 cap PO BID Chromium Picolinate 800 mcg PO QAM Aspirin [Adult Low Dose Aspirin EC] 162 mg PO DAILY metFORMIN HCL 1,000 mg PO BID Simvastatin [Zocor] 40 mg PO HS Omeprazole 20 mg PO HS Metoprolol Succinate [Toprol XL] 25 mg PO DAILY Lisinopril [Zestril] 2.5 mg PO HS Ibuprofen [Motrin Ib] 800 mg PO TID PRN PRN Reason: Pain HYDROcodone/APAP 5-325MG [[place] 5-325] 1 tab PO Q6HR PRN #12 tab PRN Reason: Pain Tamsulosin [Flomax] 0.4 mg PO DAILY #30 cap Discharge Medication List Aspirin [Adult Low Dose Aspirin EC] 162 mg PO DAILY 06/16/18 [History] Chromium Picolinate 800 mcg PO QAM 06/16/18 [History] HYDROcodone/APAP 5-325MG [[place] 5-325] 1 tab PO Q6HR PRN #12 tab 06/16/18 [Rx] Ibuprofen [Motrin Ib] 800 mg PO TID PRN 06/16/18 [History] Ibuprofen/Diphenhydramine HCl [Advil Pm Liqui-Gels] 2 cap PO HS 06/16/18 [ History] L.acidoph,Paracasei, B.lactis [Probiotic] 4 cap PO BID 06/16/18 [History] Lisinopril [Zestril] 2.5 mg PO HS 06/16/18 [History] Metoprolol Succinate [Toprol XL] 25 mg PO DAILY 06/16/18 [History] Omeprazole 20 mg PO HS 06/16/18 [History] Simvastatin [Zocor] 40 mg PO HS 06/16/18 [History] Tamsulosin [Flomax] 0.4 mg PO DAILY #30 cap 06/16/18 [Rx] metFORMIN HCL 1,000 mg PO BID 06/16/18 [History] HYDROcodone/APAP 5-325MG [[place] 5-325] 1 tab PO Q4HR PRN #10 tab 06/24/18 [Rx] Follow up Appointment(s)/Referral(s): Jorge Urrutia DO [Primary Care Provider] - 1-2 days Tyrell Garcia MD [Family Provider] - 07/06/18 Discharge Disposition: HOME SELF-CARE
[2018-06-24] MEDS: LACTOBACILLUS ACIDOPH & BULGAR 1 EACH PACKET PO SCH (07:51)
[2018-06-24] MEDS ORDERED: TAMSULOSIN 0.4 MG CAP.ER.24H PO SCH (09:00)
[2018-06-24] MEDS ORDERED: METOPROLOL SUCCINATE (ER) 25 MG TAB.ER.24H PO SCH (09:00)
[2018-06-24] MEDS ORDERED: ASPIRIN 81 MG PO SCH (09:00)
[2018-06-24 15:11] VITALS: BP 144/78; PULSE 56; RESP 17; TEMP 98.4
== END 2018-06-24 15:47 | disposition home or self-care (01) ==
LOC: EC 13:23 → 4SSUR 20:13
PROVIDERS: ADMIT Urology; ATTEND Urology
DX: N13.2 Hydronephrosis with renal and ureteral calculous obstruction (principal); N28.89 Other specified disorders of kidney and ureter; E11.9 Type 2 diabetes mellitus without complications; E78.5 Hyperlipidemia, unspecified; I10 Essential (primary) hypertension; K21.9 Gastro-esophageal reflux disease without esophagitis; Z79.82 Long term (current) use of aspirin; Z79.84 Long term (current) use of oral hypoglycemic drugs; Z79.899 Other long term (current) drug therapy; Z87.442 Personal history of urinary calculi; Z95.1 Presence of aortocoronary bypass graft; Z96.653 Presence of artificial knee joint, bilateral; Z88.5 Allergy status to narcotic agent; Z82.49 Family history of ischemic heart disease and other diseases of the circulatory system; Z82.5 Family history of asthma and other chronic lower respiratory diseases; Z83.3 Family history of diabetes mellitus
CPT/HCPCS: 96361 ×2; 96376; 96374; 96375; 99285; 36415; 80053; 82150; 83690; 85025; 85610; 85730; 81001; 87086; 74018; G0378 ×2; J2765; J2405; J1170 ×2

== ENCOUNTER → 2018-07-04 | Outpatient (CLI) | payer BC ==
[2018-07-05 02:06] LABS: Anion Gap 8.2 mmol/L (4.00-12.00); Calcium 10.1 mg/dL (8.7-10.3); Carbon Dioxide 25.8 mmol/L (21.6-31.8); Potassium 4.9 mmol/L (3.5-5.5)
== END | disposition home or self-care (01) ==
LOC: LABWHC1 16:51
PROVIDERS: ATTEND Urology
DX: N17.9 Acute kidney failure, unspecified (principal)
CPT/HCPCS: 36415; 80048

== ENCOUNTER → 2018-07-11 | Outpatient (CLI) | payer BC ==
--- NOTE | 2018-07-11 22:13 | US ---
EXAMINATION TYPE: US kidneys/renal and bladder DATE OF EXAM: 07/11/2018 COMPARISON: Correlation CT 06/16/2018 CLINICAL HISTORY: 63-year-old male D41.01 R renal mass, N13.30 R hydronephrosis. Patient stated had r ecent renal lithotripsy with bilateral ureteral stents, then left ureteral stent was removed; diabeti c TECHNIQUE: Multiple sonographic images of the kidneys and bladder are obtained. FINDINGS: EXAM MEASUREMENTS: Right Kidney: 12.4 x 5.7 x 4.0 cm Left Kidney: 13.5 x 6.8 x 5.6 cm Post Void Residual Volume: 45.8 mL Right Kidney: simple, mid cortical cyst = 3.4 x 3.4 x 3.1cm; upper and lower pole mild hydronephrosis ; mid to inferior shadowing calculus measuring 0.8 x 0.9 x 0.4cm; mid pole renal vessel wall calcifi cations Left Kidney: No hydronephrosis. Bladder: wnl Bilateral Jets seen: no, only small left jet seen as right ureteral stent (hyperechoic parallel wal ls) is noted within bladder Normal Post Void Residual: yes, as volume < 50.0ml. IMPRESSION: 1. Mild right-sided pelvicaliectasis which may be transient. Consider short interval follow-up. 2. Right renal cyst measuring 2.4 cm. Nonobstructive 9 mm right renal calculus. 3. Increased postvoid bladder volume of 46 mL just barely falls within acceptable limits.
--- NOTE | 2018-07-12 04:37 | NM ---
EXAMINATION TYPE: NM renal flow and function DATE OF EXAM: 07/11/2018 COMPARISON: NONE HISTORY: 63-year-old male with right renal mass and right hydronephrosis Technique: Following administration of 9.98 mCi Tc99m MAG3. Immediate images post injection. Post [place] scanning was not performed. FINDINGS: Left: 87.2 %. Right: 12.8 %. Max renal flow left: 2.836 minutes, normal. Max renal flow right: There is blunted but constant upstroke during the 30 minutes of imaging. There was an initial spike. When correlating with the raw data, this corresponds to patient motion and some interference with adjacent liver activity. Satisfactory accumulation of radiotracer within the left renal collecting system. No accumulation wit hin the right renal collecting system during the course of the study. T 1/2 left: 12.2 minutes minutes. T 1/2 right: N/A minutes. IMPRESSION: 1. Split function of the kidneys is 87% on the left and markedly decreased 13% on the right. 2. During the course of 30 minutes of imaging, no accumulation into the right renal collecting system is seen. This could be secondary to abnormal kidney function or severe obstruction.
== END | disposition home or self-care (01) ==
LOC: RADUSMAIN 11:44
PROVIDERS: ATTEND Urology
DX: N20.0 Calculus of kidney (principal); N28.1 Cyst of kidney, acquired; N28.89 Other specified disorders of kidney and ureter; Z88.5 Allergy status to narcotic agent
CPT/HCPCS: 76770; 78707; A9562

== ENCOUNTER → 2018-08-05 | Outpatient (CLI) | payer BC ==
[2018-08-05 17:02] LABS: Appearance,Urine Cloudy (Clear); Bacteria,Urine Rare /hpf; Bilirubin,Urine Negative (Negative); Blood,Urine Large (Negative); Color,Urine Light Red; Glucose,Urine (UA) Negative (Negative); Hyaline Casts,Urine 9 /lpf (0-2); Ketones,Urine Trace (Negative); Leukocyte Esterase,Urine Moderate (Negative); Mucus,Urine Rare /hpf; Nitrite,Urine Negative (Negative); Protein,Urine 2+ (Negative); RBC,Urine >182 /hpf (0-5); Specific Gravity,Urine 1.018 (1.001-1.035); WBC,Urine 45 /hpf (0-5)
[2018-08-05 17:04] LABS: Basophils # (A) 0.1 k/uL (0-0.2); Basophils % (A) 1 %; Eosinophils # (A) 0.5 k/uL (0-0.7); Eosinophils % (A) 5 %; HCT 42.6 % (39.0-53.0); HGB 13.3 gm/dL (13.0-17.5); Lymphocytes # (A) 2.3 k/uL (1.0-4.8); Lymphocytes % (A) 23 %; MCH 28.9 pg (25.0-35.0); MCHC 31.3 g/dL (31.0-37.0); MCV 92.5 fL (80.0-100.0); Mean Platelet Volume 7.3; Monocytes # (A) 0.5 k/uL (0-1.0); Monocytes % (A) 5 %; Neutrophils # (A) 6.4 k/uL (1.3-7.7); Neutrophils % (A) 64 %; Platelet Count 274 k/uL (150-450); RDW 13.1 % (11.5-15.5); WBC 10.2 k/uL (3.8-10.6)
[2018-08-05 17:24] LABS: Calcium 10.1 mg/dL (8.4-10.2); Potassium 4.8 mmol/L (3.5-5.1)
== END | disposition home or self-care (01) ==
LOC: LABPAT 15:23
PROVIDERS: ATTEND Urology
DX: Z01.812 Encounter for preprocedural laboratory examination (principal); I10 Essential (primary) hypertension; N13.2 Hydronephrosis with renal and ureteral calculous obstruction; D41.01 Neoplasm of uncertain behavior of right kidney; R31.29 Other microscopic hematuria
CPT/HCPCS: 80048; 81001; 85025; 86850; 86900; 86901; 87086

== ENCOUNTER → 2018-08-30 | Outpatient (CLI) | payer BC | END | disposition home or self-care (01) | LOC: RADMRIMAIN 12:16 | PROVIDERS: ATTEND Urology | DX: D41.01 Neoplasm of uncertain behavior of right kidney (principal) | CPT/HCPCS: 82565 ==

== ENCOUNTER 2018-09-05 09:02 | Day surgery (SDC) | payer BC ==
[2018-09-05] MEDS ORDERED: ALPRAZolam 0.5 MG TAB PO STA (09:42)
[2018-09-05 09:53] VITALS: TEMP 97.6
[2018-09-05 10:16] LABS: Mean Platelet Volume 7.1; Platelet Count 338 k/uL (150-450)
[2018-09-05 10:18] LABS: Prothrombin Time 10.5 sec (9.0-12.0)
[2018-09-05] MEDS ORDERED: HYDROmorphone 0.5 MG/0.5 ML SYRINGE IVP PRN (10:45)
[2018-09-05 12:10] VITALS: RESP 16
--- NOTE | 2018-09-05 13:15 | CT ---
EXAMINATION TYPE: CT biopsy renal RT DATE OF EXAM: 09/05/2018 COMPARISON: NONE HISTORY: Right renal lesion CT DLP: 4051 mGycm The procedure was explained to the patient. The risks, complications, benefits, and alternatives wer e discussed and any questions were answered. Informed consent was obtained. Patient was placed pron e on the CT table and prepped and draped in the usual sterile fashion. Utilizing CT guidance, an 18 gauge core biopsy needle access into the right renal lesion was achieved and three 18 gauge core samples were obtained. FNA was performed with aspiration of what appear to be a cystic material approximately 8 cc. The patient was stable throughout the procedure and remained stable upon discharge. All elements of maximal barrier technique and sterile technique utilized. IMPRESSION: Successful 18 gauge core biopsy and FNA of a right renal cystic lesion. Pathology sunshine jose
[2018-09-05 14:49] VITALS: PULSE 70
[2018-09-06 06:04] VITALS: BP 132/78
== END 2018-09-05 15:15 | disposition home or self-care (01) ==
LOC: RADPROMAIN 09:02
PROVIDERS: ATTEND Urology
DX: C64.1 Malignant neoplasm of right kidney, except renal pelvis (principal)
CPT/HCPCS: 86900; 86901; 88305; 88173; 82947; 85049; 85610; 86850; 88342; 88341; 50200; 77012; J1170

== ENCOUNTER → 2018-10-05 | Outpatient (CLI) | payer BC ==
[2018-10-05 16:55] LABS: Calcium 10.9 mg/dL (8.4-10.2)
[2018-10-05 16:59] LABS: Basophils # (A) 0.1 k/uL (0-0.2); Basophils % (A) 1 %; Eosinophils # (A) 0.3 k/uL (0-0.7); Eosinophils % (A) 2 %; HCT 42.9 % (39.0-53.0); HGB 13.4 gm/dL (13.0-17.5); Lymphocytes # (A) 1.9 k/uL (1.0-4.8); Lymphocytes % (A) 18 %; MCH 28.8 pg (25.0-35.0); MCHC 31.3 g/dL (31.0-37.0); MCV 92.2 fL (80.0-100.0); Monocytes # (A) 0.5 k/uL (0-1.0); Monocytes % (A) 4 %; Neutrophils # (A) 7.8 k/uL (1.3-7.7); Neutrophils % (A) 72 %; Platelet Count 274 k/uL (150-450); RBC 4.65 m/uL (4.30-5.90); RDW 13.6 % (11.5-15.5); WBC 10.7 k/uL (3.8-10.6)
[2018-10-05 20:11] LABS: Appearance,Urine Clear (Clear); Bilirubin,Urine Negative (Negative); Blood,Urine Trace (Negative); Calcium Oxalate Crystals,Urine Occasional /hpf; Color,Urine Yellow; Glucose,Urine (UA) Negative (Negative); Hyaline Casts,Urine 1 /lpf (0-2); Ketones,Urine Negative (Negative); Leukocyte Esterase,Urine Trace (Negative); Mucus,Urine Rare /hpf; Nitrite,Urine Negative (Negative); PH, Urine 5.5 (5.0-8.0); Protein,Urine Trace (Negative); RBC,Urine 12 /hpf (0-5); Specific Gravity,Urine 1.025 (1.001-1.035); Squamous Epithelial Cell,Urine <1 /hpf (0-4); Urobilinogen,Urine <2.0 mg/dL (<2.0); WBC,Urine 6 /hpf (0-5)
== END | disposition home or self-care (01) ==
LOC: LABPAT 16:22
PROVIDERS: ATTEND Urology
DX: Z01.812 Encounter for preprocedural laboratory examination (principal); D41.01 Neoplasm of uncertain behavior of right kidney; N13.2 Hydronephrosis with renal and ureteral calculous obstruction; R31.29 Other microscopic hematuria
CPT/HCPCS: 80048; 81001; 85025; 86850; 86900; 86901; 87086

== ENCOUNTER → 2018-10-07 | Outpatient (CLI) | payer BC ==
--- NOTE | 2018-10-07 11:02 | CT ---
EXAMINATION TYPE: CT chest abdomen wo con DATE OF EXAM: 10/07/2018 COMPARISON: Outside MRI dated 08/30/[address] abdomen dated 06/16/2018. HISTORY: Papillary renal cell carcinoma, biopsy-proven with postbiopsy hemorrhage on outside MRI date d 08/30/2018. CT DLP: 1124.5 mGycm Automated exposure control for dose reduction was used. FINDINGS: CHEST: Minimal fibrosis is seen in the right costophrenic angle, elongated and linear. No suspicious pulmona ry nodules or masses are seen. No focal consolidation, pleural effusion or pneumothorax. Post CABG ch anges are noted of the chest. No mediastinal adenopathy. No pericardial effusion or cardiac enlargeme nt. ABDOMEN: There is redemonstration of a solid right renal mass measuring up to 3.5 x 3.3 x 3.8 cm. The re is a punctate slightly hyperdense focus at the periphery on series 6 image 57. Internal complexity on coronal imaging and liver windows correlates with the prior hemorrhage, resolving. No acute hemor rhage is seen. Right renal atrophy and mild hydronephrosis persists. No hydroureter. Curvilinear coco l arterial calcifications are seen of the left. Punctate nonobstructing right lower pole 2 mm renal c alculus is present. The unenhanced liver, spleen, adrenal glands, and pancreas are unremarkable in morphology. No splenom egaly or pancreatic ductal dilatation. No dilated large or small bowel. No adenopathy is seen within the pelvis (greater than 1 cm short axis lymph node), specifically surrounding the right kidney. Eval uation for renal vein thrombosis is limited without contrast. No enlargement of the renal vein. Evalu ation for abutment of the calyces is also limited without contrast. Prior gastric sleeve surgery is a lso noted. No suspicious osseous lesions are appreciated. Mild multilevel degenerative change of the spine are n oted. IMPRESSION: 1. THE PREVIOUSLY SEEN BIOPSY-PROVEN RIGHT RENAL CARCINOMA APPEARS TO BE CORTICALLY BASED. ALTHOUGH L ACK OF CONTRAST LIMITS CONTINUITY WITH THE ADJACENT CALYCES NO DISTINCT COMMUNICATION IS SEEN. NO ENL ARGEMENT OF THE RENAL VEIN TO SUGGEST THROMBOSIS ALTHOUGH THIS IS ALSO LIMITED WITHOUT CT. INTERNAL H ETEROGENEITY COMPATIBLE WITH THE RECENT POSTBIOPSY HEMORRHAGE IS SEEN HOWEVER NO ACUTE HEMORRHAGE IS APPRECIATED AT THIS TIME. 2. GIVEN THE LIMITATION OF LACK OF INTRAVENOUS CONTRAST NO FINDINGS SUSPICIOUS FOR METASTASIS ARE SEE N WITHIN THE CHEST OR ABDOMEN.
== END | disposition home or self-care (01) ==
LOC: RADCTMAIN 07:26
PROVIDERS: ATTEND Urology
DX: C64.1 Malignant neoplasm of right kidney, except renal pelvis (principal); Z88.6 Allergy status to analgesic agent
CPT/HCPCS: 71250; 74150

== ENCOUNTER 2018-10-12 11:28 | Observation (INO) | payer BC ==
--- NOTE | 2018-10-11 10:00 | P.GSHP ---
History of Present Illness H&P Date: 10/10/18 Chief Complaint: Right renal cell carcinoma The patient is a 63-year-old white male admitted in May 2018 with left renal colic. He was found to have left hydronephrosis due to a 4 mm left proximal ureteral calculus. His serum creatinine level has increased and he was thus admitted for surgical intervention. The CT scan also showed marked right hydronephrosis due to a 10 x 14 mm right proximal ureteral calculus, as well as a 3.1 x 3.8 cm right renal lesion which appeared to be solid. Thinning of the right renal parenchyma was noted. It is noteworthy that the serum creatinine level had been elevated since December 2016. The creatinine level was previously normal. The patient underwent bilateral ureteroscopy with holmium laser lithotripsy and stent placement. His renal function improved, and the left ureteral stent has since been removed. A renal scan shows diminished right renal function (13% of overall function). A renal ultrasound showed significant improvement in the hydronephrosis, and the renal lesion appeared to be a simple cyst by ultrasound. However, an MRI was nondiagnostic, so ultimately a CT- guided biopsy was obtained, revealing papillary renal cell carcinoma. His metastatic evaluation is negative, and he has elected to undergo a robotic- assisted laparoscopic right radical nephrectomy. - Constitutional Constitutional: Denies chills, Denies fever - Genitourinary (Female) Genitourinary: Reports flank pain, Denies hematuria Past Medical History Past Medical History: Diabetes Mellitus, GERD/Reflux, Hyperlipidemia, Hypertension, Sleep Apnea/CPAP/BIPAP Additional Past Medical History / Comment(s): uses cpap,Kidney stones, right kidney failure with mass-dx kidney [id number]-no chemo or radiation History of Any Multi-Drug Resistant Organisms: None Reported Past Surgical History: Bariatric Surgery, Coronary Bypass/CABG, Joint Replacem ent Additional Past Surgical History / Comment(s): bilateral knees replaced, lithotripsy and renal stents, gastric sleeve Past Anesthesia/Blood Transfusion Reactions: Previous Problems w/ Anesthesia Additional Past Anesthesia/Blood Transfusion Reaction / Comment(s): slow to recover,no hx blood transfusion Smoking Status: Never smoker - Past Family History Mother History Unknown: Yes Family Medical History: Coronary Artery Disease (CAD) Father History Unknown: Yes Family Medical History: COPD, Coronary Artery Disease (CAD), Diabetes Mellitus Medications and Allergies Home Medications Medication Instructions Recorded Confirmed Type Aspirin [Adult Low Dose Aspirin EC] 162 mg PO DAILY 06/16/18 10/07/18 History L.acidoph,Paracasei, B.lactis 4 cap PO BID 06/16/18 10/07/18 History [Probiotic] Lisinopril [Zestril] 2.5 mg PO HS 06/16/18 10/07/18 History Metoprolol Succinate [Toprol XL] 25 mg PO QAM 06/16/18 10/07/18 History Omeprazole 20 mg PO HS 06/16/18 10/07/18 History Simvastatin [Zocor] 40 mg PO HS 06/16/18 10/07/18 History metFORMIN HCL 1,000 mg PO BID 06/16/18 10/07/18 History Allergies Allergy/AdvReac Type Severity Reaction Status Date / Time meperidine [From Demerol] Allergy Rash/Hives, Verified 10/07/18 15:24 vomiting Surgical - Exam - General well developed, well nourished, no distress - Neck no masses, trachea midline - Respiratory normal respiratory effort, clear to auscultation - Cardiovascular Rhythm: regular Abnormal Heart Sounds: no systolic murmur, no diastolic murmur, no rub, no S3 Gallop, no S4 Gallop, no click, no other - Abdomen Abdomen: soft, non tender, no guarding, no rigid, no rebound Assessment and Plan (1) Malignant neoplasm of right kidney, except renal pelvis Status: Acute Code(s): C64.1 - MALIGNANT NEOPLASM OF RIGHT KIDNEY, EXCEPT RENAL PELVIS SNOMED Code(s): 929287078 Plan: I had a lengthy discussion with Mr. Medeiros regarding a robotic-assisted lapar oscopic right nephrectomy. I explained the procedure in detail, as well as the possible complications of this surgical procedure. These complications include anesthesia, bleeding, infection, and injury (bowel, liver, vascular), postoperative paralytic ileus, as well as the possible need to convert to an open procedure. The procedure will be done by Dr. Sascha Garza.
[~2018-10-12 11:28] MED LIST: DEXAMETHASONE SOD PHOSPHATE 10 MG/ML 1 ML VIAL IV ONE; HEPARIN SODIUM,PORCINE 5,000 UNIT/ML 1 ML VIAL SQ ONE; LACTATED RINGERS 1,000 ML IV SCH; LIDOCAINE 1% 20 ML VIAL (10MG/ML) FOR IV START INTRADERMA PRN; MIDAZOLAM 2 MG/2 ML VIAL IV PRN; ceFAZolin IN SWFI 2 GM/20 ML SYRINGE IVP ONE; fentaNYL (PF) 50 MCG/ML 2 ML AMP IV PRN
[2018-10-12 12:29] LABS: Glucose,Whole Blood 122 mg/dL (75-99)
[2018-10-12] MEDS ORDERED: SCOPOLAMINE 1.5MG/72HR PATCH TRANSDERM ONE (12:30)
[2018-10-12] MEDS ORDERED: ONDANSETRON 4 MG/2 ML VIAL IVP ONE (12:32)
[2018-10-12] MEDS ORDERED: PROPOFOL 10 MG/ML 20 ML VIAL IV ONE (13:08)
[2018-10-12] MEDS ORDERED: NEOSTIGMINE 1 MG/ML 10 ML VIAL ONE (13:08)
[2018-10-12] MEDS ORDERED: LIDOCAINE 1% INJ 10MG/ML (20 ML MDV) ONE (13:08)
[2018-10-12] MEDS ORDERED: GLYCOPYRROLATE 0.2 MG/ML 2 ML VIAL ONE (13:08)
[2018-10-12] MEDS ORDERED: MIDAZOLAM 2 MG/2 ML VIAL ONE (13:08)
[2018-10-12] MEDS ORDERED: ROCURONIUM BROMIDE 10 MG/ML 10 ML VIAL IV ONE (13:08)
[2018-10-12] MEDS ORDERED: HYDROmorphone (PF) 1 MG/ML ONE (13:08)
[2018-10-12] MEDS ORDERED: fentaNYL (PF) 50 MCG/ML 2 ML AMP ONE (13:08)
[2018-10-12] MEDS ORDERED: BUPIVACAIN-EPI 0.5%-1:200,000 30 ML VIAL SQ ONE ×2 (14:00)
[2018-10-12] MEDS: HYDROmorphone 1 MG/ML 1 ML SYRINGE IVP ONE ×4 (15:12→15:35)
--- NOTE | 2018-10-12 15:31 | P.OP ---
Date of Procedure: 10/12/18 Preoperative Diagnosis: Right renal cell carcinoma Postoperative Diagnosis: right renal cell carcinoma Procedure(s) Performed: robotic right radical nephrectomy Anesthesia: GRAYSON Surgeon: Alina Garza Estimated Blood Loss (ml): 50 IV fluids (ml): 800 Urine output (ml): 200 Pathology: other (right kidney and renal mass) Condition: stable Disposition: PACU Indications for Procedure: right renal cell cancer Operative Findings: Alex Craft is a 63-year-old male who was found to have a hydronephrotic right kidney with a renal mass. Biopsy of the renal mass showed cancer. He was recommended to undergo a robotic right radical nephrectomy. All risks and complications were explained to him including bleeding bowel injury. He was he was taken to the OR placed in right lateral position and administered general anesthesia. A Veress needle was used to gain access to the peritoneum and the abdomen was insufflated to 20 mmHg. 4 robotic ports were placed along the midclavicular line. An additional 12 mm port was placed in the midline and a 5 mm liver retraction port was placed in the upper quadrant. The robot was docked and a monopolar scissor fenestrated bipolar and progress were used for the procedure. Using the monopolar scissors an incision was made along the Toldt line and the ascending colon was reflected off the Gerota's. The duodenum was then reflected off the IVC and an incision was made in the hepatoduodenal ligament. The ureter was identified and lifted up with the fourth arm to identify the psoas muscle. An accessory lower pole artery was seen and doubly clipped and ligated. A port dissection was done with the scissors and bipolar forceps until the hilum was identified. There was a large renal vein and accessory renal vein and a single renal artery. Dissection was then performed about the hilum to create a window for the stapler. A 60 mm white vascular load stapler was used to staple the hilum. The upper pole of the kidney was then dissected off the liver taking care to quite relate all bleeding vessels. The kidney was then laterally staying outside the genitals fascia until the lower pole of the kidney was reached. A stapler was then used to staple the ureter and the lower pole of the Gerota's. The specimen was placed in 15 mm Endo Catch bag and hemostasis was confirmed in the renal bed. The 12 mm port was then extended in a paramedian incision to take out the specimen and the specimen was sent for pathology. The fascia was closed in 2 layers with #1 stratafix. The skin was closed in layers with 4-0 Monocryl and the patient was taken to PACU in stable condition Description of Procedure: Alex Craft is a 63-year-old male who was found to have a hydronephrotic right kidney with a renal mass. Biopsy of the renal mass showed cancer. He was recommended to undergo a robotic right radical nephrectomy. All risks and complications were explained to him including bleeding bowel injury. He was he was taken to the OR placed in right lateral position and administered general anesthesia. A Veress needle was used to gain access to the peritoneum and the abdomen was insufflated to 20 mmHg. 4 robotic ports were placed along the midclavicular line. An additional 12 mm port was placed in the midline and a 5 mm liver retraction port was placed in the upper quadrant. The robot was docked and a monopolar scissor fenestrated bipolar and progress were used for the procedure. Using the monopolar scissors an incision was made along the Toldt line and the ascending colon was reflected off the Gerota's. The duodenum was then reflected off the IVC and an incision was made in the hepatoduodenal ligament. The ureter was identified and lifted up with the fourth arm to identify the psoas muscle. An accessory lower pole artery was seen and doubly clipped and ligated. A port dissection was done with the scissors and bipolar forceps until the hilum was identified. There was a large renal vein and accessory renal vein and a single renal artery. Dissection was then performed about the hilum to create a window for the stapler. A 60 mm white vascular load stapler was used to staple the hilum. The upper pole of the kidney was then dissected off the liver taking care to quite relate all bleeding vessels. The kidney was then laterally staying outside the genitals fascia until the lower pole of the kidney was reached. A stapler was then used to staple the ureter and the lower pole of the Gerota's. The specimen was placed in 15 mm Endo Catch bag and hemostasis was confirmed in the renal bed. The 12 mm port was then extended in a paramedian incision to take out the specimen and the specimen was sent for pathology. The fascia was closed in 2 layers with #1 stratafix. The skin was closed in layers with 4-0 Monocryl and the patient was taken to PACU in stable condition
[2018-10-12 15:54] LABS: Glucose,Whole Blood 150 mg/dL (75-99)
[2018-10-12] MEDS ORDERED: KETOROLAC 30 MG/ML 1 ML VIAL IVP PRN (16:12)
[2018-10-12] MEDS ORDERED: ACETAMINOPHEN TAB 325 MG TAB PO PRN (16:12)
[2018-10-12] MEDS: ONDANSETRON 4 MG/2 ML VIAL IVP PRN (16:28)
[2018-10-12 16:36] VITALS: BMI 37.9
[2018-10-12 16:38] LABS: Glucose,Whole Blood 173 mg/dL (75-99)
[2018-10-12] MEDS: ceFAZolin IN SWFI 2 GM/20 ML SYRINGE IVP SCH ×2 (17:16→23:49)
[2018-10-12] MEDS: DEXTROSE 5%-0.45% NACL 1,000 ML IV SCH ×2 (17:21→23:49)
[2018-10-12] MEDS: HEPARIN SODIUM,PORCINE 5,000 UNIT/ML 1 ML VIAL SQ SCH ×2 (17:22→23:49)
[2018-10-12] MEDS: METOCLOPRAMIDE 5 MG/ML 2 ML VIAL IVP PRN ×2 (17:59→22:16)
[2018-10-12] MEDS: HYDROmorphone 1 MG/ML 1 ML SYRINGE IVP PRN ×2 (19:54→22:17)
[2018-10-12] MEDS: metFORMIN 500 MG TAB PO SCH (19:54)
[2018-10-12 21:23] LABS: Glucose,Whole Blood 224 mg/dL (75-99)
[2018-10-12] MEDS: INSULIN ASPART (NovoLOG) 100 UNIT/ML VIAL SQ SCH (22:08)
[2018-10-12] MEDS: LISINOPRIL 2.5 MG TAB PO SCH (22:08)
[2018-10-12] MEDS: LACTOBACILLUS ACIDOPH & BULGAR 1 EACH PACKET PO SCH (22:08)
[2018-10-12] MEDS: ATORVASTATIN 20 MG TAB PO SCH (22:08)
[2018-10-12] MEDS: PANTOPRAZOLE 40 MG TABLET PO SCH (22:08)
[2018-10-13] MEDS: ONDANSETRON 4 MG/2 ML VIAL IVP PRN (06:14)
[2018-10-13 07:10] LABS: Glucose,Whole Blood 161 mg/dL (75-99)
[2018-10-13] MEDS: HEPARIN SODIUM,PORCINE 5,000 UNIT/ML 1 ML VIAL SQ SCH ×3 (07:58→23:15)
[2018-10-13] MEDS: INSULIN ASPART (NovoLOG) 100 UNIT/ML VIAL SQ SCH ×4 (07:58→20:34)
[2018-10-13] MEDS: METOPROLOL SUCCINATE (ER) 25 MG TAB.ER.24H PO SCH (07:59)
[2018-10-13] MEDS: metFORMIN 500 MG TAB PO SCH ×2 (07:59→17:21)
[2018-10-13] MEDS: LACTOBACILLUS ACIDOPH & BULGAR 1 EACH PACKET PO SCH ×2 (07:59→20:34)
[2018-10-13] MEDS: DEXTROSE 5%-0.45% NACL 1,000 ML IV SCH ×3 (08:00→23:15)
[2018-10-13] MEDS ORDERED: HYDROcodone/APAP 5-325MG 1 EACH TAB PO PRN (09:41)
[2018-10-13] MEDS: BENZOCAINE/MENTHOL LOZENG 1 EACH LOZENGE MUCOUS MEM PRN ×3 (10:28→21:06)
[2018-10-13] MEDS: HYDROcodone/APAP 5-325MG 1 EACH TAB PO PRN ×3 (10:28→20:38)
[2018-10-13 11:59] LABS: Glucose,Whole Blood 145 mg/dL (75-99)
--- NOTE | 2018-10-13 12:12 | P.PN ---
Subjective Progress Note Date: 10/13/18 Principal diagnosis: POD #1, s/p robotic-assisted laparoscopic right radical nephrectomy. Mr. Medeiros has no specific complaints. He has experienced nausea after receiving Dilaudid and Toradol. He has not yet ambulated, though I assisted him getting out of bed. Objective - Vital Signs Vital signs: Vital Signs Temp 98.4 F 10/13/18 07:26 Pulse 63 10/13/18 07:26 Resp 15 10/13/18 07:26 BP 127/72 10/13/18 07:26 Pulse Ox 99 10/13/18 07:26 Intake & Output 10/12/18 10/13/18 10/13/18 18:59 06:59 18:59 Intake Total 1250 1250 100 Output Total 425 450 Balance 825 800 100 Intake: IV 1250 Intake, IV Titration 1250 Amount Dextrose 5%-0.45% NaCl 1, 1250 000 ml @ 125 mls/hr IV . Q8H [facility] Rx#:[id number] Oral 100 Output: Urine 400 450 Estimated Blood Loss 25 Other: Voiding Method Indwelling Catheter Indwelling Catheter Indwelling Catheter - Constitutional General appearance: Present: average body habitus, no acute distress - Gastrointestinal Gastrointestinal Comment(s): Soft, non-distended. Incisions clean, dry, and intact. - Labs Labs: Abnormal Lab Results - Last 24 Hours (Table) 10/12/18 10/12/18 10/12/18 Range/Units 12:15 15:50 16:29 POC Glucose (mg/dL) 122 H 150 H 173 H (75-99) mg/dL 10/12/18 10/13/18 10/13/18 Range/Units 21:21 07:08 11:57 POC Glucose (mg/dL) 224 H 161 H 145 H (75-99) mg/dL Assessment and Plan (1) Malignant neoplasm of right kidney, except renal pelvis Current Visit: No Status: Acute Code(s): C64.1 - MALIGNANT NEOPLASM OF RIGHT KIDNEY, EXCEPT RENAL PELVIS SNOMED Code(s): 241480201 Plan: The Gonzalez catheter will be removed. Ambulation is encouraged. Diet as tolerated. [place] has been prescribed for analgesia.
[2018-10-13] MEDS: DOCUSATE 100 MG CAP PO SCH ×2 (12:25→20:34)
[2018-10-13 17:12] LABS: Glucose,Whole Blood 143 mg/dL (75-99)
[2018-10-13 20:18] LABS: Glucose,Whole Blood 177 mg/dL (75-99)
[2018-10-13] MEDS: ATORVASTATIN 20 MG TAB PO SCH (20:34)
[2018-10-13] MEDS: PANTOPRAZOLE 40 MG TABLET PO SCH (20:34)
[2018-10-13] MEDS: LISINOPRIL 2.5 MG TAB PO SCH (20:34)
[2018-10-14 02:57] VITALS: RESP 17
[2018-10-14] MEDS: HYDROcodone/APAP 5-325MG 1 EACH TAB PO PRN ×3 (03:04→11:01)
[2018-10-14 06:44] LABS: Glucose,Whole Blood 162 mg/dL (75-99)
[2018-10-14 07:11] VITALS: BP 132/67; PULSE 62; TEMP 98.4
[2018-10-14] MEDS: METOPROLOL SUCCINATE (ER) 25 MG TAB.ER.24H PO SCH (07:51)
[2018-10-14] MEDS: HEPARIN SODIUM,PORCINE 5,000 UNIT/ML 1 ML VIAL SQ SCH (07:52)
[2018-10-14] MEDS: LACTOBACILLUS ACIDOPH & BULGAR 1 EACH PACKET PO SCH (07:52)
[2018-10-14] MEDS: DOCUSATE 100 MG CAP PO SCH (07:52)
[2018-10-14] MEDS: INSULIN ASPART (NovoLOG) 100 UNIT/ML VIAL SQ SCH (07:53)
[2018-10-14] MEDS: metFORMIN 500 MG TAB PO SCH (07:53)
[2018-10-14] MEDS: BENZOCAINE/MENTHOL LOZENG 1 EACH LOZENGE MUCOUS MEM PRN (08:00)
[2018-10-14] MEDS: DEXTROSE 5%-0.45% NACL 1,000 ML IV SCH (08:02)
--- NOTE | 2018-10-14 08:15 | P.DS ---
Providers Date of admission: 10/13/18 06:52 Expected date of discharge: 10/14/18 Attending physician: Alina Garza Primary care physician: Jorge Urrutia - Discharge Diagnosis(es) (1) Malignant neoplasm of right kidney, except renal pelvis Current Visit: No Status: Acute Hospital Course: On the day of admission, the patient underwent an uncomplicated robotic assisted laparoscopic right radical nephrectomy. The postoperative course was unremarkable. He experienced nausea when given intravenous Toradol and Dilaudid, but was able to tolerate [place]. On the first postoperative day, the Gonzalez catheter was removed and he began ambulating. On the second postoperative day, he was ambulating without difficulty and stated that his pain was controlled with [place]. He was tolerating diet, without nausea. He is afebrile with stable vital signs. Procedures: Robotic-assisted laparoscopic right radical nephrectomy on 10/12/2018. Patient Condition at Discharge: Good Plan - Discharge Summary Discharge Rx Participant: No New Discharge Prescriptions: New Hydrocodone/Acetaminophen [[place] 5-325] 1 - 2 each PO Q4HR PRN #12 tab PRN Reason: Pain No Action L.acidoph,Paracasei, B.lactis [Probiotic] 4 cap PO BID Aspirin [Adult Low Dose Aspirin EC] 162 mg PO DAILY metFORMIN HCL 1,000 mg PO BID Simvastatin [Zocor] 40 mg PO HS Omeprazole 20 mg PO HS Metoprolol Succinate [Toprol XL] 25 mg PO QAM Lisinopril [Zestril] 2.5 mg PO HS Discharge Medication List Aspirin [Adult Low Dose Aspirin EC] 162 mg PO DAILY 06/16/18 [History] L.acidoph,Paracasei, B.lactis [Probiotic] 4 cap PO BID 06/16/18 [History] Lisinopril [Zestril] 2.5 mg PO HS 06/16/18 [History] Metoprolol Succinate [Toprol XL] 25 mg PO QAM 06/16/18 [History] Omeprazole 20 mg PO HS 06/16/18 [History] Simvastatin [Zocor] 40 mg PO HS 06/16/18 [History] metFORMIN HCL 1,000 mg PO BID 06/16/18 [History] Hydrocodone/Acetaminophen [[place] 5-325] 1 - 2 each PO Q4HR PRN #12 tab 10/14/18 [Rx] Follow up Appointment(s)/Referral(s): Tyrell Garcia MD [STAFF PHYSICIAN] - 1 Week Activity/Diet/Wound Care/Special Instructions: Diet as tolerated. Okay to shower. No lifting, driving, or strenuous activity. Discharge Disposition: HOME SELF-CARE
== END 2018-10-14 11:10 | disposition home or self-care (01) ==
LOC: OR 11:28 → 4SSUR 15:01 → OR 10-13 06:51 → 4SSUR 10-13 06:52
PROVIDERS: ADMIT Urology; ATTEND Urology
DX: C64.1 Malignant neoplasm of right kidney, except renal pelvis (principal); E11.9 Type 2 diabetes mellitus without complications; K21.9 Gastro-esophageal reflux disease without esophagitis; Z83.3 Family history of diabetes mellitus; I10 Essential (primary) hypertension; G47.30 Sleep apnea, unspecified; Z99.89 Dependence on other enabling machines and devices; E78.5 Hyperlipidemia, unspecified; Z79.82 Long term (current) use of aspirin; Z79.84 Long term (current) use of oral hypoglycemic drugs; Z79.899 Other long term (current) drug therapy; Z88.5 Allergy status to narcotic agent; Z87.442 Personal history of urinary calculi; Z98.84 Bariatric surgery status; Z95.1 Presence of aortocoronary bypass graft; Z96.653 Presence of artificial knee joint, bilateral; Z82.49 Family history of ischemic heart disease and other diseases of the circulatory system; N13.2 Hydronephrosis with renal and ureteral calculous obstruction
CPT/HCPCS: 50545; S2900; 88307; 88341; 88342; 96372

== ENCOUNTER → 2019-04-11 | Outpatient (CLI) | payer BC ==
--- NOTE | 2019-04-11 12:27 | XR ---
EXAMINATION TYPE: XR chest 2V DATE OF EXAM: 04/11/2019 COMPARISON: CT chest October 07, 2018. HISTORY: Right-sided renal cancer. TECHNIQUE: Frontal and lateral views of the chest are obtained. FINDINGS: There is no focal air space opacity, pleural effusion, or pneumothorax seen. The cardiac silhouette size is stable and upper limits of normal. Overlying sternal wires and mediastinal clips a re redemonstrated. The osseous structures are intact. IMPRESSION: No acute process. No significant change from prior CT.
[2019-04-11 18:28] LABS: Albumin 4.4 g/dL (3.80-4.90); Albumin/Globulin Ratio 2.32 (1.60-3.17); Anion Gap 7.3 mmol/L (4.00-12.00); BUN/Creat Ratio 8.75 Ratio (12.00-20.00); Calcium 9.8 mg/dL (8.7-10.3); Carbon Dioxide 26.7 mmol/L (21.6-31.8); Globulin 1.9 g/dL (1.6-3.3); Total Bilirubin 0.5 mg/dL (0.2-1.2); Total Protein 6.3 g/dL (6.2-8.2)
== END | disposition home or self-care (01) ==
LOC: LABWHC1 11:16
PROVIDERS: ATTEND Urology
DX: C64.1 Malignant neoplasm of right kidney, except renal pelvis (principal)
CPT/HCPCS: 36415; 71046; 80053

== ENCOUNTER → 2019-11-17 | Outpatient (CLI) | payer MEDICARE, BC ==
[2019-11-17 15:23] LABS: African American GFR (CKD) 55.8 (60.0-200.0); Albumin 4.3 g/dL (3.80-4.90); Albumin/Globulin Ratio 2.15 (1.60-3.17); Calcium 9.8 mg/dL (8.7-10.3); Non-African American GFR(CKD) 48.2 (60.0-200.0); Potassium 4.9 mmol/L (3.5-5.5); Total Bilirubin 0.5 mg/dL (0.3-1.2); Total Protein 6.3 g/dL (6.2-8.2)
== END | disposition home or self-care (01) ==
LOC: LABWHC1 09:01
PROVIDERS: ATTEND Urology
DX: C64.1 Malignant neoplasm of right kidney, except renal pelvis (principal)
CPT/HCPCS: 36415; 80053

== ENCOUNTER → 2019-11-18 | Outpatient (CLI) | payer MEDICARE, BC ==
--- NOTE | 2019-11-19 21:12 | XR ---
EXAMINATION TYPE: XR chest 2V DATE OF EXAM: 11/18/2019 COMPARISON: 04/11/2019 HISTORY: 64-year-old male C64.1, kidney cancer TECHNIQUE: Frontal and lateral views FINDINGS: Median sternotomy wires are present with post-CABG clips. Heart normal size. Strandy atelectasis lowe r lungs. Hazy densities relating to large patient body habitus. No consolidation or pleural effusion. IMPRESSION: No acute cardiopulmonary process.
--- NOTE | 2019-11-19 21:27 | CT ---
EXAMINATION TYPE: CT abdomen wo con DATE OF EXAM: 11/18/2019 COMPARISON: 10/07/2018 HISTORY: 64-year-old male Renal cancer. TECHNIQUE: Contiguous axial scanning of the abdomen without IV contrast. Coronal and sagittal reconst ructions performed. CT DLP: 832.6 mGycm Automated exposure control for dose reduction was used. FINDINGS: Median sternotomy wires are present. Heart normal size without pericardial effusion. Lung bases clear without pleural effusion. Status post sleeve gastrectomy. Noncontrast appearance of the liver, adrenal glands, spleen, and pancreas shows no gross abnormal. Possible tiny punctate gallstone dependent within the gallbladder body. No abnormal gallbladder diste ntion. Progressively enlarging upper pole left renal calculus currently measuring 1.6 cm. Small adjacent pun ctate calcifications measuring up to 3 mm of also developed. Interval right nephrectomy. Some strandy changes in the superior aspect of the nephrectomy bed, likel y postsurgical change. Some surgical material is also present here. No suspicious nodularity. No retroperitoneal or mesenteric lymphadenopathy. No dilated small bowel, free fluid, or free air. Normal appendix. Mild stool burden. Oral contrast has progressed to the cecum. No pericolonic inflamm atory change. Bones: Facet arthropathy lower lumbar spine. Moderate to advanced degenerative disc disease lower tho racic spine. No osseous destructive process. IMPRESSION: 1. INTERVAL RIGHT NEPHRECTOMY. NO EVIDENCE FOR LOCOREGIONAL RECURRENCE. NO METASTATIC DISEASE SEEN WI THIN THE ABDOMEN ALLOWING FOR THE LIMITATION OF A NONCONTRAST STUDY. 2. PROGRESSIVELY ENLARGING LEFT UPPER POLE RENAL CALCULUS CURRENTLY MEASURING 1.6 CM. A COUPLE ADJACE NT PUNCTATE 3 MM CALCULI HAVE ALSO DEVELOPED IN THE INTERVAL.
== END | disposition home or self-care (01) ==
LOC: RADCTMAIN 09:00
PROVIDERS: ATTEND Urology
DX: N20.0 Calculus of kidney (principal); Z90.5 Acquired absence of kidney; C64.1 Malignant neoplasm of right kidney, except renal pelvis; Z88.5 Allergy status to narcotic agent
CPT/HCPCS: 71046; 74150

== ENCOUNTER → 2019-12-04 | Outpatient (CLI) | payer MEDICARE, BC ==
[2019-12-04 12:05] LABS: Basophils # (A) 0.1 k/uL (0-0.2); Basophils % (A) 1 %; Eosinophils # (A) 0.5 k/uL (0-0.7); Eosinophils % (A) 6 %; HCT 41.6 % (39.0-53.0); HGB 12.9 gm/dL (13.0-17.5); Lymphocytes # (A) 2.1 k/uL (1.0-4.8); Lymphocytes % (A) 23 %; MCH 29.5 pg (25.0-35.0); MCHC 31.1 g/dL (31.0-37.0); MCV 94.8 fL (80.0-100.0); Mean Platelet Volume 7.8; Monocytes # (A) 0.4 k/uL (0-1.0); Monocytes % (A) 4 %; Neutrophils % (A) 64 %; Platelet Count 214 k/uL (150-450); RBC 4.38 m/uL (4.30-5.90); RDW 12.8 % (11.5-15.5); WBC 9.4 k/uL (3.8-10.6)
[2019-12-04 12:27] LABS: Calcium 9.8 mg/dL (8.4-10.2); Potassium 5.3 mmol/L (3.5-5.1)
== END | disposition home or self-care (01) ==
LOC: LABPAT 10:43
PROVIDERS: ATTEND Urology
DX: Z01.818 Encounter for other preprocedural examination (principal); N20.0 Calculus of kidney; E11.9 Type 2 diabetes mellitus without complications; R31.29 Other microscopic hematuria
CPT/HCPCS: 36415; 80048; 85025; 87086; 93005

== ENCOUNTER 2019-12-12 10:33 | Day surgery (SDC) | payer MEDICARE, BC ==
[2019-12-08 10:55] VITALS: BMI 37.3
--- NOTE | 2019-12-10 21:10 | P.GSHP ---
History of Present Illness H&P Date: 12/05/19 Chief Complaint: Left renal calculus The patient is a 64-year-old white male with a history of right renal cell carcinoma, for which she underwent a nephrectomy in September 2018. He has a history of urolithiasis, and a recent computed tomography scan has shown multiple left renal calculi. The largest is a 16 mm upper pole calculus. Although he is not symptomatic, he has been advised to undergo treatment of the calculi to preserve function of the left kidney. - Genitourinary (Female) Genitourinary: Denies flank pain, Denies hematuria Past Medical History Past Medical History: Diabetes Mellitus, GERD/Reflux, Hyperlipidemia, Hypertension, Sleep Apnea/CPAP/BIPAP Additional Past Medical History / Comment(s): uses cpap,Kidney stones, right kidney failure with mass-dx kidney [id number]-no chemo or radiation History of Any Multi-Drug Resistant Organisms: None Reported Past Surgical History: Bariatric Surgery, Coronary Bypass/CABG, Joint Replacement Additional Past Surgical History / Comment(s): bilateral knees replaced, lithotripsy and renal stents, gastric sleeve Past Anesthesia/Blood Transfusion Reactions: Previous Problems w/ Anesthesia Additional Past Anesthesia/Blood Transfusion Reaction / Comment(s): slow to recover,no hx blood transfusion Past Psychological History: No Psychological Hx Reported Past Alcohol Use History: Rare Past Drug Use History: None Reported - Past Family History Mother History Unknown: Yes Family Medical History: Coronary Artery Disease (CAD) Father History Unknown: Yes Family Medical History: COPD, Coronary Artery Disease (CAD), Diabetes Mellitus Medications and Allergies Home Medications Medication Instructions Recorded Confirmed Type Aspirin [Adult Low Dose Aspirin EC] 162 mg PO DAILY 06/16/18 12/08/19 History L.acidoph,Paracasei, B.lactis 1 cap PO BID 06/16/18 12/08/19 History [Probiotic] Lisinopril [Zestril] 2.5 mg PO HS 06/16/18 12/08/19 History Metoprolol Succinate [Toprol XL] 25 mg PO QAM 06/16/18 12/08/19 History Omeprazole 20 mg PO HS 06/16/18 12/08/19 History Simvastatin [Zocor] 40 mg PO HS 06/16/18 12/08/19 History metFORMIN HCL 1,000 mg PO BID 06/16/18 12/08/19 History Hydrocodone/Acetaminophen [[place] 1 - 2 each PO Q4HR PRN #12 tab 10/14/18 12/08/19 Rx 5-325] Allergies Allergy/AdvReac Type Severity Reaction Status Date / Time meperidine [From Demerol] Allergy Rash/Hives, Verified 12/08/19 10:48 vomiting Surgical - Exam - General well developed, well nourished, no distress - Neck no masses, trachea midline - Respiratory normal respiratory effort - Abdomen Abdomen: soft, non tender, no guarding, no rigid, no rebound - Genitourinary normal penis with no external lesions, testicles non-tender - Rectum Rectum: normal sphincter tone, no masses - Psychiatric oriented to time, oriented to person, oriented to place, speech is normal, memory intact Results - Imaging CT scan - abdomen: report reviewed, image reviewed Assessment and Plan (1) Calculus of kidney Status: Acute Code(s): N20.0 - CALCULUS OF KIDNEY SNOMED Code(s): 37058942 Plan: Cystoscopy, left ureteroscopy with Holmium laser lithotripsy and left ureteral stent placement. The rationale for the procedure has been reviewed in detail with the patient and his . Potential risks were also discussed, which include anesthesia, bleeding, infection, and ureteral injury.
[2019-12-12] MEDS ORDERED: LIDOCAINE 1% (10MG/ML) FOR IV START INTRADERMA PRN (11:11)
[2019-12-12] MEDS ORDERED: DEXAMETHASONE SOD PHOSPHATE 10 MG/ML 1 ML VIAL IV ONE (11:11)
[2019-12-12] MEDS ORDERED: HYDROmorphone 0.5 MG/0.5 ML SYRINGE IVP PRN (11:11)
[2019-12-12] MEDS ORDERED: LACTATED RINGERS 1,000 ML IV SCH (11:11)
[2019-12-12 11:18] VITALS: TEMP 97.3
[2019-12-12] MEDS ORDERED: LACTATED RINGERS 1,000 ML IV ONE ×2 (11:19→14:47)
[2019-12-12 11:29] LABS: Glucose,Whole Blood 141 mg/dL (75-99)
[2019-12-12] MEDS ORDERED: ONDANSETRON 4 MG/2 ML VIAL IVP ONE (11:37)
--- NOTE | 2019-12-12 12:59 | XR ---
EXAMINATION TYPE: XR KUB DATE OF EXAM: 12/12/2019 Comparison: 08/11/2018 Clinical History: 64-year-old male presurgical for left renal calculus Findings: 1.8 x 0.8 cm ovoid calcification left mid abdomen possibly renal calculus. Bowel content partially ex truded the right renal shadow. Vascular calcifications pelvis. Mild/moderate stool burden. Nonobstructive bowel gas pattern. Impression: A 1.8 x 0.8 cm ovoid calcification left mid abdomen, possible nonobstructive left renal calculus.
[2019-12-12] MEDS ORDERED: GLYCOPYRROLATE 0.2 MG/ML 2 ML VIAL ONE (13:15)
[2019-12-12] MEDS ORDERED: MIDAZOLAM 2 MG/2 ML VIAL ONE (13:15)
[2019-12-12] MEDS ORDERED: fentaNYL (PF) 50 MCG/ML 2 ML AMP ONE (13:15)
[2019-12-12] MEDS ORDERED: LIDOCAINE 1% INJ 10MG/ML (20 ML MDV) ONE (13:15)
[2019-12-12] MEDS ORDERED: PROPOFOL 10 MG/ML 20 ML VIAL IV ONE (13:15)
[2019-12-12] MEDS ORDERED: SUCCINYLCHOLINE CHLORIDE VIAL 200 MG/10 ML VIAL IV ONE (13:15)
[2019-12-12 15:07] VITALS: RESP 16
--- NOTE | 2019-12-12 15:07 | P.OP ---
Date of Procedure: 12/12/19 Preoperative Diagnosis: Left renal calculus Postoperative Diagnosis: Same Procedure(s) Performed: Cystoscopy, left ureteroscopy with Holmium laser lithotripsy, left ureteral stent insertion Anesthesia: LALYA Surgeon: Tyrell Garcia Estimated Blood Loss (ml): 5 IV fluids (ml): 900 Pathology: none sent Condition: stable Disposition: PACU Indications for Procedure: The patient is a 64-year-old white male with a history of right renal cell carcinoma, for which she underwent a nephrectomy in September 2018. He has a history of urolithiasis, and a recent computed tomography scan has shown multiple left renal calculi. The largest is a 16 mm upper pole calculus. Although he is not symptomatic, he has been advised to undergo treatment of the calculi to preserve function of the left kidney. Operative Findings: Large left upper pole renal calculus, which appears to be a calcified organized clot. This was fragmented completely. Description of Procedure: The patient was taken to the operating room and placed in the dorsolithotomy position, with legs supported in stirrups. The external genitalia was prepped and draped sterilely. The 30 lens was used to introduce the 19-Icelandic Leon cystoscopic sheath through the urethra and into the bladder under direct vision. The prostatic urethra showed evidence of mild lateral lobe enlargement. The bladder was examined in its entirety. Both ureteral orifices were normal anatomic location and configuration, and clear urine effluxed from the left. No tumors or foreign bodies were seen. A 0.038 inch Glidewire was passed through the cystoscope. The left ureteral orifice was cannulated, and the Glidewire was advanced up to the left renal pelvis. The cystoscope was removed, and an 11/13- Icelandic ureteral access catheter sheath was passed over the wire, up to the proximal ureter. The mini flexible ureteroscope was advanced through the ureteral access catheter sheath. It was advanced under direct vision into the left renal pelvis. Within an upper pole calyx, a large calculus was identified. The 200 micron Holmium laser probe was passed through the ureteroscope, and lithotripsy was performed using a combination of dusting and fragmenting modes. This was continued until there were no residual visible calculus fragments exceeding 1-2 mm in size. The ureteroscope was removed. The Glidewire was passed through the ureteral access catheter sheath, which was removed. The Glidewire was backloaded into the cystoscope, which was passed into the bladder. A 26 cm, 4.8-Icelandic double-J ureteral stent was placed over the wire. The upper stent positioning was verified fluoroscopically and endoscopically. The bladder was emptied and the cystoscope removed. The patient tolerated the procedure well and was taken to the recovery room in stable condition.
[2019-12-12 15:45] VITALS: BP 152/89; PULSE 55
[2019-12-12] MEDS ORDERED: KETOROLAC 30 MG/ML 1 ML VIAL ONE (16:00)
[2019-12-12] MEDS ORDERED: KETOROLAC 30 MG/ML 1 ML VIAL IVP ONE (16:00)
--- NOTE | 2019-12-12 16:52 | FL ---
EXAMINATION TYPE: FL guidance operating room DATE OF EXAM: 12/12/2019 CLINICAL HISTORY: Left renal calculi TECHNIQUE: Fluoroscopy. COMPARISON: None. FINDINGS: Fluoroscopic guidance was provided during procedure by performing physician in the operati ng room. A total of 24 seconds of fluoroscopic time was utilized during the procedure and 1 spot audra ges was acquired. Please see operative report by performing physician for additional details. IMPRESSION: As Above.
== END 2019-12-12 16:49 | disposition home or self-care (01) ==
LOC: OR 10:33
PROVIDERS: ATTEND Urology
DX: N20.0 Calculus of kidney (principal); I25.10 Atherosclerotic heart disease of native coronary artery without angina pectoris; I10 Essential (primary) hypertension; K21.9 Gastro-esophageal reflux disease without esophagitis; E11.9 Type 2 diabetes mellitus without complications; E78.5 Hyperlipidemia, unspecified; G47.33 Obstructive sleep apnea (adult) (pediatric); Z85.528 Personal history of other malignant neoplasm of kidney; Z90.5 Acquired absence of kidney; Z87.442 Personal history of urinary calculi; Z98.84 Bariatric surgery status; Z95.1 Presence of aortocoronary bypass graft; Z96.653 Presence of artificial knee joint, bilateral; Z82.49 Family history of ischemic heart disease and other diseases of the circulatory system; Z83.3 Family history of diabetes mellitus; Z82.5 Family history of asthma and other chronic lower respiratory diseases; Z79.82 Long term (current) use of aspirin; Z79.84 Long term (current) use of oral hypoglycemic drugs; Z79.899 Other long term (current) drug therapy; Z88.5 Allergy status to narcotic agent
CPT/HCPCS: 84132; 74018; 52356; J1100; J0690; J2405; J1885

== ENCOUNTER → 2019-12-19 | Outpatient (CLI) | payer MEDICARE, BC ==
[2019-12-19 11:49] LABS: Appearance,Urine Cloudy (Clear); Bacteria,Urine Rare /hpf; Bilirubin,Urine Negative (Negative); Blood,Urine Moderate (Negative); Color,Urine Yellow; Glucose,Urine (UA) Negative (Negative); Ketones,Urine Negative (Negative); Leukocyte Esterase,Urine Large (Negative); Mucus,Urine Rare /hpf; Nitrite,Urine Negative (Negative); Protein,Urine 2+ (Negative); RBC,Urine >182 /hpf (0-5); Urobilinogen,Urine <2.0 mg/dL (<2.0); WBC,Urine >182 /hpf (0-5)
== END | disposition home or self-care (01) ==
LOC: LABPAT 09:39
PROVIDERS: ATTEND Urology
DX: Z01.818 Encounter for other preprocedural examination (principal); N20.0 Calculus of kidney
CPT/HCPCS: 81001; 87086

== ENCOUNTER 2019-12-26 10:37 | Day surgery (SDC) | payer MEDICARE, BC ==
[2019-12-20 08:42] VITALS: BMI 37.3
--- NOTE | 2019-12-24 17:57 | P.GSHP ---
History of Present Illness H&P Date: 12/24/19 Chief Complaint: Left renal calculus The patient is a 64-year-old white male with a history of right renal cell carcinoma, for which she underwent a nephrectomy in September 2018. He has a history of urolithiasis, and a recent computed tomography scan has shown multiple left renal calculi. The largest is a 16 mm upper pole calculus. Although he is not symptomatic, he was advised to undergo treatment of the calculi to preserve function of the left kidney. This was performed on 12/12/2019. The left upper pole calculus appeared to be an organized clot with peripheral calcification. It was fragmented completely, and a ureteral stent was placed. He now comes for removal of the stent, as well as ureteroscopy with Holmium laser lithotripsy and/or stone basketing to remove any residual calculus fragments. - Constitutional Constitutional: Denies chills, Denies fever - Genitourinary (Female) Genitourinary: Denies flank pain, Denies hematuria Past Medical History Past Medical History: Diabetes Mellitus, GERD/Reflux, Hyperlipidemia, Hypertension, Sleep Apnea/CPAP/BIPAP Additional Past Medical History / Comment(s): uses cpap, Kidney stones, right kidney failure with mass-dx kidney [id number] chemo or radiation History of Any Multi-Drug Resistant Organisms: None Reported Past Surgical History: Bariatric Surgery, Coronary Bypass/CABG, Joint Replacement Additional Past Surgical History / Comment(s): bilateral knees replaced, lithotripsy and renal stents, gastric sleeve, rt nephrectomy, left lithotripsy and left stent 12/12/19 Past Anesthesia/Blood Transfusion Reactions: Previous Problems w/ Anesthesia Additional Past Anesthesia/Blood Transfusion Reaction / Comment(s): slow to recover,no hx blood transfusion Smoking Status: Never smoker - Past Family History Mother History Unknown: Yes Family Medical History: Coronary Artery Disease (CAD) Father History Unknown: Yes Family Medical History: COPD, Coronary Artery Disease (CAD), Diabetes Mellitus Medications and Allergies Home Medications Medication Instructions Recorded Confirmed Type Aspirin [Adult Low Dose Aspirin EC] 162 mg PO DAILY 06/16/18 12/20/19 History L.acidoph,Paracasei, B.lactis 1 cap PO BID 06/16/18 12/20/19 History [Probiotic] Metoprolol Succinate [Toprol XL] 25 mg PO QAM 06/16/18 12/20/19 History Omeprazole 20 mg PO HS 06/16/18 12/20/19 History Simvastatin [Zocor] 40 mg PO HS 06/16/18 12/20/19 History lisinopriL [Zestril] 2.5 mg PO HS 06/16/18 12/20/19 History metFORMIN HCL 1,000 mg PO BID 06/16/18 12/20/19 History Tamsulosin [Flomax] 0.4 mg PO DAILY #30 cap 12/12/19 12/20/19 Rx Ketorolac [Toradol] 10 mg PO Q6HR PRN 12/20/19 12/20/19 History Allergies Allergy/AdvReac Type Severity Reaction Status Date / Time meperidine [From Demerol] Allergy Rash/Hives, Verified 12/20/19 08:33 vomiting Surgical - Exam - General well developed, well nourished, no distress - Respiratory normal respiratory effort - Abdomen Abdomen: soft, non tender, no guarding, no rigid, no rebound - Genitourinary normal penis with no external lesions, testicles non-tender - Psychiatric oriented to time, oriented to person, oriented to place, speech is normal, memory intact Assessment and Plan (1) Calculus of kidney Status: Acute Code(s): N20.0 - CALCULUS OF KIDNEY SNOMED Code(s): 22944596 Plan: Cystoscopy, left ureteral stent removal, left ureteroscopy with Holmium laser lithotripsy and/or stone basketing. The rationale for the procedure has been reviewed in detail with the patient and his . Potential risks were also discussed, which include anesthesia, bleeding, infection, and ureteral injury.
[~2019-12-26 10:37] MED LIST changes: -DEXAMETHASONE SOD PHOSPHATE 10 MG/ML 1 ML VIAL IV ONE; -HEPARIN SODIUM,PORCINE 5,000 UNIT/ML 1 ML VIAL SQ ONE; +HYDROmorphone 0.5 MG/0.5 ML SYRINGE IVP PRN; -LACTATED RINGERS 1,000 ML IV SCH; -LIDOCAINE 1% 20 ML VIAL (10MG/ML) FOR IV START INTRADERMA PRN; -ceFAZolin IN SWFI 2 GM/20 ML SYRINGE IVP ONE; -fentaNYL (PF) 50 MCG/ML 2 ML AMP IV PRN
--- NOTE | 2019-12-26 10:55 | XR ---
EXAMINATION TYPE: XR KUB DATE OF EXAM: 12/26/2019 HISTORY: Pain Comparison: 12/12/2019 Single KUB is submitted for interpretation. Findings: Right renal calculi: None Visualized. Right ureteral calculi: None Visualized. Left renal calculi: None Visualized. Left ureteral calculi: Left ureteral stent is in place. No definite calculus is seen along the cours e of the ureteral stent. Vascular calcifications are noted. Pelvic calcifications: None Visualized. Bowel gas pattern is unremarkable. No free air. No mass effects. IMPRESSION: 1. Left ureteral stent is in place. No definite calculus is seen along the course of the ureteral morelia nt.
[2019-12-26] MEDS ORDERED: ONDANSETRON 4 MG/2 ML VIAL ONE ×2 (11:07→16:12)
[2019-12-26] MEDS ORDERED: LIDOCAINE 1% (10MG/ML) FOR IV START INTRADERMA ONE (11:24)
[2019-12-26] MEDS: LACTATED RINGERS 1,000 ML IV SCH ×3 (11:34→16:45)
[2019-12-26 11:35] LABS: Glucose,Whole Blood 83 mg/dL (75-99)
[2019-12-26] MEDS ORDERED: DEXAMETHASONE SOD PHOSPHATE 10 MG/ML 1 ML VIAL IV ONE (11:35)
[2019-12-26] MEDS ORDERED: MIDAZOLAM 2 MG/2 ML VIAL ONE (13:49)
[2019-12-26] MEDS ORDERED: PROPOFOL 10 MG/ML 20 ML VIAL IV ONE (13:49)
[2019-12-26] MEDS ORDERED: DEXAMETHASONE SOD PHOSPHATE 10 MG/ML 1 ML VIAL ONE (13:49)
[2019-12-26] MEDS ORDERED: fentaNYL (PF) 50 MCG/ML 2 ML AMP ONE (13:49)
[2019-12-26] MEDS ORDERED: HYDROmorphone (PF) 1 MG/ML ONE (13:49)
[2019-12-26] MEDS ORDERED: ePHEDrine SULFATE/0.9% NACL/PF 50 MG/5 ML SYRINGE IV ONE (13:49)
[2019-12-26] MEDS ORDERED: LIDOCAINE 1% INJ 10MG/ML (20 ML MDV) ONE (13:49)
[2019-12-26] MEDS ORDERED: SUCCINYLCHOLINE CHLORIDE 100 MG/5 ML SYR IV ONE (13:49)
[2019-12-26] MEDS ORDERED: LACTATED RINGERS 1,000 ML IV ONE (14:24)
--- NOTE | 2019-12-26 15:21 | P.OP ---
Date of Procedure: 12/26/19 Preoperative Diagnosis: Left renal calculi Postoperative Diagnosis: Same Procedure(s) Performed: Cystoscopy, left ureteral stent removal, left ureteroscopy with Holmium laser lithotripsy and stone basketing Anesthesia: GRAYSON Surgeon: Tyrell Garcia Estimated Blood Loss (ml): 0 IV fluids (ml): 700 Pathology: none sent Condition: stable Disposition: PACU Indications for Procedure: The patient is a 64-year-old white male with a history of right renal cell c arcinoma, for which she underwent a nephrectomy in September 2018. He has a history of urolithiasis, and a recent computed tomography scan has shown multiple left renal calculi. The largest is a 16 mm upper pole calculus. Although he is not symptomatic, he was advised to undergo treatment of the calculi to preserve function of the left kidney. This was performed on 12/12/2019. The left upper pole calculus appeared to be an organized clot with peripheral calcification. It was fragmented completely, and a ureteral stent was placed. He now comes for removal of the stent, as well as ureteroscopy with Holmium laser lithotripsy and/or stone basketing to remove any residual calculus fragments. Operative Findings: Several residual small calculi, all fragmented completely. Description of Procedure: The patient was taken to the operating room and placed in the dorsolithotomy position, with legs supported in stirrups. The external genitalia was prepped and draped sterilely. The 30 lens was used to introduce the 19-Barbadian Leon cystoscopic sheath through the urethra and into the bladder under direct vision. The prostatic urethra showed evidence of mild lateral lobe enlargement. Grasping forceps were used to grasp the distal end of the left ureteral stent, which was withdrawn along with the cystoscope. A 0.035 inch Glidewire was passed through the Glidewire and up to the left renal pelvis. The Leon Boa flexible ureteroscope was advanced over the wire and up to the left renal pelvis. Each calyx was examined. There were only several small residual calculus fragments within the upper pole calyx, where the stone was previously treated. Each calyx was meticulously examined. The 200 micron Holmium laser probe was passed through the ureteroscope, and lithotripsy was performed, fragmenting each calculus seen. The largest of these measured approximately 3 mm in size, but there were no calculus fragments exceeding 1 mm in size following the lithotripsy. Within a lower pole calyx, some debris was noted which appeared to consume largely of mucus. This was removed using a combination of lasering and irrigation. Following this, a small clot containing tiny calculus fragments was seen and this was removed using a 1.9-Barbadian nitinol basket. There was no evidence of mucosal perforation, and after removing the ureteroscope with a nitinol basket the procedure was terminated. The patient tolerated the procedure well and was taken to the recovery room in stable condition.
[2019-12-26 15:29] VITALS: TEMP 97.6
--- NOTE | 2019-12-26 15:30 | FL ---
Fluoroscopy History: Left Stent Removal, Renal Stone. Left stent removal and renal stone. 12 sec fluoro. [address] Garcia.
[2019-12-26 15:49] LABS: Glucose,Whole Blood 168 mg/dL (75-99)
[2019-12-26 16:42] LABS: Glucose,Whole Blood 223 mg/dL (75-99)
[2019-12-26] MEDS ORDERED: diphenhydrAMINE 50 MG/ML 1 ML VIAL ONE (16:48)
[2019-12-26 17:10] VITALS: RESP 16
[2019-12-26 17:24] VITALS: BP 131/73; PULSE 63
== END 2019-12-26 17:54 | disposition home or self-care (01) ==
LOC: OR 10:37
PROVIDERS: ATTEND Urology
DX: N20.0 Calculus of kidney (principal); I10 Essential (primary) hypertension; E78.5 Hyperlipidemia, unspecified; G47.33 Obstructive sleep apnea (adult) (pediatric); E11.9 Type 2 diabetes mellitus without complications; K21.9 Gastro-esophageal reflux disease without esophagitis; Z88.5 Allergy status to narcotic agent; Z85.528 Personal history of other malignant neoplasm of kidney; Z90.5 Acquired absence of kidney; Z79.82 Long term (current) use of aspirin; Z79.899 Other long term (current) drug therapy; Z87.442 Personal history of urinary calculi; Z79.84 Long term (current) use of oral hypoglycemic drugs; Z82.49 Family history of ischemic heart disease and other diseases of the circulatory system; Z99.89 Dependence on other enabling machines and devices; Z83.3 Family history of diabetes mellitus
CPT/HCPCS: 74018; 52353; C1769; J2250; J1200; J1100; J0690; J2405; J2001; J3010; J1170; J0330; J2704

== ENCOUNTER → 2020-02-07 | Outpatient (CLI) | payer MEDICARE, BC ==
--- NOTE | 2020-02-07 12:48 | XR ---
EXAMINATION TYPE: XR KUB DATE OF EXAM: 02/07/2020 COMPARISON: 12/26/2019 HISTORY: Stent removal, right kidney removal TECHNIQUE: AP supine abdomen FINDINGS: No radiopaque foreign bodies are evident within the [id number]. There may be faint 0.3 c m calcification in the right midabdomen. No left renal or ureteral stones are identified. Normal colonic bowel gas is present. Small amount nonspecific small bowel gas may be within the right midabdomen. Psoas margins are normal osseous structures are unremarkable IMPRESSION: 1. Small 0.3 cm right midabdomen calcification, this may be within fecal debris. 2. No radiopaque foreign bodies evident.
--- NOTE | 2020-02-07 12:56 | US ---
EXAMINATION TYPE: US kidneys/renal and bladder DATE OF EXAM: 02/07/2020 COMPARISON: CT & KUB CLINICAL HISTORY: N20.0. Right nephrectomy 6-7 yrs ago, h/o left calculi / left renal stent placement with recent removal/ pt states left flank pain EXAM MEASUREMENTS: Left Kidney: 13.5 x 6.0 x 4.8 cm Right Kidney: Surgically absent Left Kidney: Appeared wnl Bladder: possible posterior/dependent wall debris Bilateral Jets seen: No IMPRESSION: 1. Normal left kidney. 2. Right renal bed appears unremarkable 3. There may be some small amount of debris within the urinary bladder.
== END | disposition home or self-care (01) ==
LOC: RADUSWWP 12:02
PROVIDERS: ATTEND Urology
DX: K31.89 Other diseases of stomach and duodenum (principal); N20.0 Calculus of kidney
CPT/HCPCS: 74018; 76770

== ENCOUNTER 2020-03-31 10:43 | Emergency (ER) | payer MEDICARE, BC ==
[2020-03-31 10:50] VITALS: RESP 18
[2020-03-31] MEDS ORDERED: ACETAMINOPHEN TAB 325 MG TAB PO STA (10:53)
--- NOTE | 2020-03-31 11:18 | ED ---
Nausea/Vomiting/Diarrhea HPI - General Chief complaint: Nausea/Vomiting/Diarrhea Stated complaint: N/V/D, fever, cough Time Seen by Provider: 03/31/20 10:51 Source: patient Mode of arrival: wheelchair Limitations: no limitations - History of Present Illness Initial comments: 64yo male with history of right sided nephrectomy secondary to cancer 2019-no ac tive chemo or radiation, with history of CABG presenting to the ER today for body aches, loss of taste/smell, lose stools and fever. Patient states that he has had body aches, loss of taste/smell x 1 week, with diarrhea x 3 days as well as body aches. Patient denies significant cough, URI symptoms, denies urinary symptoms, denies abdominal pain, chest pain, admits to slight SOB at times. Patient denies vomiting but admit to decreased appetite and dry heaving. Pateitn denies back pain, neck stiffness, ear or throat pain. Patient febrile on arrival. Nontoxic in appearance, pleasant. Does not endorse history concerning for immune compromise at this time. - Related Data Home Medications Medication Instructions Recorded Confirmed Aspirin [Adult Low Dose Aspirin EC] 162 mg PO DAILY 06/16/18 12/26/19 L.acidoph,Paracasei, B.lactis 1 cap PO BID 06/16/18 12/26/19 [Probiotic] Metoprolol Succinate [Toprol XL] 25 mg PO QAM 06/16/18 12/26/19 Omeprazole 20 mg PO HS 06/16/18 12/26/19 Simvastatin [Zocor] 40 mg PO HS 06/16/18 12/26/19 lisinopriL [Zestril] 2.5 mg PO HS 06/16/18 12/26/19 metFORMIN HCL 1,000 mg PO BID 06/16/18 12/26/19 Ketorolac [Toradol] 10 mg PO Q6HR PRN 12/20/19 12/26/19 Previous Rx's Medication Instructions Recorded Tamsulosin [Flomax] 0.4 mg PO DAILY #30 cap 12/12/19 Ketorolac [Toradol] 10 mg PO Q6HR #12 tab 12/26/19 Azithromycin [Zithromax Z-pack (6 0 mg PO DIRECTED #6 tab 03/31/20 tabs)] Allergies Allergy/AdvReac Type Severity Reaction Status Date / Time meperidine [From Demerol] Allergy Rash/Hives, Verified 03/31/20 10:50 vomiting Review of Systems ROS Statement: Those systems with pertinent positive or pertinent negative responses have been documented in the HPI. ROS Other: All systems not noted in ROS Statement are negative. Past Medical History Past Medical History: Diabetes Mellitus, GERD/Reflux, Hyperlipidemia, Hypertension, Sleep Apnea/CPAP/BIPAP Additional Past Medical History / Comment(s): uses cpap,Kidney stones, right kidney failure with mass-dx kidney [id number]-no chemo or radiation History of Any Multi-Drug Resistant Organisms: None Reported Past Surgical History: Bariatric Surgery, Coronary Bypass/CABG, Joint Replac ement Additional Past Surgical History / Comment(s): bilateral knees replaced, lithotripsy and renal stents, gastric sleeve Past Anesthesia/Blood Transfusion Reactions: Previous Problems w/ Anesthesia Additional Past Anesthesia/Blood Transfusion Reaction / Comment(s): slow to recover,no hx blood transfusion Past Psychological History: No Psychological Hx Reported Smoking Status: Never smoker Past Alcohol Use History: None Reported Past Drug Use History: None Reported - Past Family History Mother History Unknown: Yes Family Medical History: Coronary Artery Disease (CAD) Father History Unknown: Yes Family Medical History: COPD, Coronary Artery Disease (CAD), Diabetes Mellitus General Exam - General Exam Comments Initial Comments: General: The patient is awake and alert, in no distress Eye: Pupils are equal, round and reactive to light, extra-ocular movements are intact. No nystagmus. There is normal conjunctiva bilaterally. No signs of icterus. Ears, nose, mouth and throat: There are moist mucous membranes and no oral lesions. Oropharynx nonerythematous Neck: The neck is supple, there is no tenderness or JVD. No nuchal rigidity Cardiovascular: There is a regular rate and rhythm. No murmur, rub or gallop is appreciated. Respiratory: Lungs are clear to auscultation, respirations are non-labored, breath sounds are equal. No wheezes, stridor, rales, or rhonchi. Gastrointestinal: Soft, non-distended, non-tender abdomen without masses or or ganomegaly noted. There is no rebound or guarding present. Musculoskeletal: Normal ROM, no tenderness. Strength 5/5. Sensation intact. Pulses equal bilaterally 2+. Neurological: A&O x 3. CN II-XII intact, There are no obvious motor or sensory deficits. Coordination appears grossly intact. Speech is normal. Skin: Skin is warm and dry and no rashes or lesions are noted. No leg swelling, no calf pain Psychiatric: Cooperative, appropriate mood & affect, normal judgment. Limitations: no limitations Course Vital Signs 03/31/20 03/31/20 03/31/20 10:48 11:49 12:00 Temperature 100.2 F H 99.8 F H Pulse Rate 90 85 Respiratory 18 18 18 Rate Blood Pressure 124/77 122/81 O2 Sat by Pulse 95 95 95 Oximetry 03/31/20 14:17 Temperature Pulse Rate 82 Respiratory 18 Rate Blood Pressure 138/80 O2 Sat by Pulse 96 Oximetry Medical Decision Making - Medical Decision Making Labs stable. Cr near baseline, slightly increased. Give IVF. Patient is not in distress, Covid +. CXR possible patchy infiltrate, No hypoxia. At this time after discussing case with Dr. Mosley my attending provider we feel comfortable with discharge with repeat outpatient BUN/Cr and increased hydration. Return for SOB, worsening symptoms. Pateint agreeable to care plan and discharge. Delay in care/discharge secondary to images stuck in dictation-called x3 on imaging study status (myselfx2, nurse x1). - Lab Data Result diagrams: 03/31/20 11:37 03/31/20 11:37 Lab Results 03/31/20 03/31/20 03/31/20 Range/Units 11:37 11:37 11:37 WBC 7.5 (3.8-10.6) k/uL RBC 4.70 (4.30-5.90) m/uL Hgb 14.2 (13.0-17.5) gm/dL Hct 43.5 (39.0-53.0) % MCV 92.7 (80.0-100.0) fL MCH 30.3 (25.0-35.0) pg MCHC 32.7 (31.0-37.0) g/dL RDW 12.6 (11.5-15.5) % Plt Count 283 (150-450) k/uL Neutrophils % 78 % Lymphocytes % 11 % Monocytes % 7 % Eosinophils % 0 % Basophils % 2 % Neutrophils # 5.9 (1.3-7.7) k/uL Lymphocytes # 0.8 L (1.0-4.8) k/uL Monocytes # 0.5 (0-1.0) k/uL Eosinophils # 0.0 (0-0.7) k/uL Basophils # 0.2 (0-0.2) k/uL Sodium 137 (137-145) mmol/L Potassium 4.7 (3.5-5.1) mmol/L Chloride 101 (98-107) mmol/L Carbon Dioxide 23 (22-30) mmol/L Anion Gap 13 mmol/L BUN 19 (9-20) mg/dL Creatinine 1.86 H (0.66-1.25) mg/dL Est GFR (CKD-EPI)AfAm 43 (>60 ml/min/1.73 sqM) Est GFR (CKD-EPI)NonAf 37 (>60 ml/min/1.73 sqM) Glucose 146 H (74-99) mg/dL Plasma Lactic Acid Ryne 1.2 (0.7-2.0) mmol/L Calcium 9.6 (8.4-10.2) mg/dL Total Bilirubin 0.6 (0.2-1.3) mg/dL AST 27 (17-59) U/L ALT 13 (4-49) U/L Alkaline Phosphatase 64 (38-126) U/L Total Protein 7.3 (6.3-8.2) g/dL Albumin 4.3 (3.5-5.0) g/dL Coronavirus (PCR) (Not Detectd) Influenza Type A RNA (Not Detectd) Influenza Type B (PCR) (Not Detectd) 03/31/20 03/31/20 Range/Units 11:37 11:37 WBC (3.8-10.6) k/uL RBC (4.30-5.90) m/uL Hgb (13.0-17.5) gm/dL Hct (39.0-53.0) % MCV (80.0-100.0) fL MCH (25.0-35.0) pg MCHC (31.0-37.0) g/dL RDW (11.5-15.5) % Plt Count (150-450) k/uL Neutrophils % % Lymphocytes % % Monocytes % % Eosinophils % % Basophils % % Neutrophils # (1.3-7.7) k/uL Lymphocytes # (1.0-4.8) k/uL Monocytes # (0-1.0) k/uL Eosinophils # (0-0.7) k/uL Basophils # (0-0.2) k/uL Sodium (137-145) mmol/L Potassium (3.5-5.1) mmol/L Chloride (98-107) mmol/L Carbon Dioxide (22-30) mmol/L Anion Gap mmol/L BUN (9-20) mg/dL Creatinine (0.66-1.25) mg/dL Est GFR (CKD-EPI)AfAm (>60 ml/min/1.73 sqM) Est GFR (CKD-EPI)NonAf (>60 ml/min/1.73 sqM) Glucose (74-99) mg/dL Plasma Lactic Acid Ryne (0.7-2.0) mmol/L Calcium (8.4-10.2) mg/dL Total Bilirubin (0.2-1.3) mg/dL AST (17-59) U/L ALT (4-49) U/L Alkaline Phosphatase (38-126) U/L Total Protein (6.3-8.2) g/dL Albumin (3.5-5.0) g/dL Coronavirus (PCR) Detected A (Not Detectd) Influenza Type A RNA Not Detected (Not Detectd) Influenza Type B (PCR) Not Detected (Not Detectd) Disposition Clinical Impression: COVID-19, Infiltrate of lung present on chest x-ray Disposition: HOME SELF-CARE Condition: Good Instructions (If sedation given, give patient instructions): Viral Pneumonia (ED) Additional Instructions: Please use medication as discussed. Please follow-up with family doctor in the next 2 days. Please return to emergency room if the symptoms increase or worsen or for any other concerns. Prescriptions: Azithromycin [Zithromax Z-pack (6 tabs)] 0 mg PO DIRECTED #6 tab Is patient prescribed a controlled substance at d/c from ED?: No Referrals: Jorge Urrutia DO [Primary Care Provider] - 1-2 days Time of Disposition: 13:31
[2020-03-31 11:53] LABS: Basophils # (A) 0.2 k/uL (0-0.2); Basophils % (A) 2 %; Eosinophils % (A) 0 %; HCT 43.5 % (39.0-53.0); HGB 14.2 gm/dL (13.0-17.5); Lymphocytes # (A) 0.8 k/uL (1.0-4.8); Lymphocytes % (A) 11 %; MCH 30.3 pg (25.0-35.0); MCHC 32.7 g/dL (31.0-37.0); MCV 92.7 fL (80.0-100.0); Mean Platelet Volume 7.4; Monocytes # (A) 0.5 k/uL (0-1.0); Monocytes % (A) 7 %; Neutrophils # (A) 5.9 k/uL (1.3-7.7); Neutrophils % (A) 78 %; Platelet Count 283 k/uL (150-450); RDW 12.6 % (11.5-15.5); WBC 7.5 k/uL (3.8-10.6)
[2020-03-31 12:00] LABS: Albumin 4.3 g/dL (3.5-5.0); Calcium 9.6 mg/dL (8.4-10.2); Potassium 4.7 mmol/L (3.5-5.1); Total Bilirubin 0.6 mg/dL (0.2-1.3); Total Protein 7.3 g/dL (6.3-8.2)
[2020-03-31] MEDS ORDERED: SODIUM CHLORIDE 0.9% 500 ML 500 ML IV ONE (12:20)
[2020-03-31 12:41] VITALS: TEMP 99.8
--- NOTE | 2020-03-31 13:54 | XR ---
EXAMINATION TYPE: XR chest 2V DATE OF EXAM: 03/31/2020 COMPARISON: 11/18/2019 HISTORY: Shortness of breath TECHNIQUE: Frontal and lateral views of the chest are obtained. FINDINGS: Scattered senescent parenchymal changes noted. Hyperinflation compatible with COPD. Vague patchy density right upper lobe may reflect developing infiltrate. Correlate clinically. Heart size is stable. Mediastinal structures are stable and grossly unremarkable. No evidence for hilar prominence. Degenerative changes dorsal spine. IMPRESSION: 1. Vague patchy density right upper lobe may reflect developing infiltrate. Correlate clinically.
[2020-03-31 14:18] VITALS: BP 138/80; PULSE 82
== END 2020-03-31 14:18 | disposition home or self-care (01) ==
LOC: EC 10:43
DX: U07.1 COVID-19 (principal); R91.8 Other nonspecific abnormal finding of lung field; G47.30 Sleep apnea, unspecified; K21.9 Gastro-esophageal reflux disease without esophagitis; I12.9 Hypertensive chronic kidney disease with stage 1 through stage 4 chronic kidney disease, or unspecified chronic kidney disease; N18.9 Chronic kidney disease, unspecified; E11.22 Type 2 diabetes mellitus with diabetic chronic kidney disease; E78.5 Hyperlipidemia, unspecified; Z79.899 Other long term (current) drug therapy; Z79.82 Long term (current) use of aspirin; Z79.84 Long term (current) use of oral hypoglycemic drugs; Z88.5 Allergy status to narcotic agent; Z95.1 Presence of aortocoronary bypass graft; Z96.653 Presence of artificial knee joint, bilateral; Z99.89 Dependence on other enabling machines and devices; Z90.5 Acquired absence of kidney; Z85.528 Personal history of other malignant neoplasm of kidney
CPT/HCPCS: 36415; 71046; 80053; 83605; 85025; 87040; 87502; 87635; 96360; 99284

== ENCOUNTER 2020-04-02 10:29 | Inpatient (IN) | payer MEDICARE, BC ==
[2020-04-02] MEDS ORDERED: SODIUM CHLORIDE 0.9% 1,000 ML IV ONE (11:41)
[2020-04-02] MEDS ORDERED: ALBUTEROL HFA INHALER INHALATION STA (11:44)
[2020-04-02 11:51] LABS: Glucose,Whole Blood 118 mg/dL (75-99)
[2020-04-02] MEDS ORDERED: dexAMETHasone 2 MG TAB PO STA (12:02)
--- NOTE | 2020-04-02 12:09 | ED ---
General Adult HPI - General Chief complaint: Fever Stated complaint: recheck- + COVID Time Seen by Provider: 04/02/20 11:25 Source: patient, family, RN notes reviewed, old records reviewed Mode of arrival: wheelchair Limitations: no limitations - History of Present Illness Initial comments: 64-year-old male patient who is known Covid positive to ED for evaluation. Patient was diagnosed with Covid on 03/31. Patient does have history of solitary kidney. Reports that he has been having nausea vomiting diarrhea for the last couple of days. He reports that he is not subjectively feeling short of breath however his believes that his breathing is slightly shorter than before. Patient is reporting that he is very weak and he has aches everywhere. He states that he fell yesterday getting up landed on his gluteal region fell back and hit his head. No loss of consciousness. Mild frontal headache right now. family states that they spoke to patient's urologist Dr. Garcia who recommended a CT abdomen pelvis without contrast to determine if patient had a asyptomatic kidney stone which he has reportedly had before and caused similar symptoms and a bump in his creatinine. Denies chest pain or any other acute complaints. Systemic: Pt denies fatigue, fever/chills, rash. Pt denies weakness, night sweats, weight loss. Neuro: Pt denies visual disturbances, syncope or pre-syncope. HEENT: Pt denies ocular discharge or irritation, otalgia, rhinorrhea, pharyngitis or notable lymphadenopathy. Cardiopulmonary: Pt denies chest pain, SOB, heart palpitations, dyspnea on exertion. : Pt denies dysuria, burning w/ urination, frequency/urgency. Denies new onset urinary or bowel incontinence. MSK: Pt denies myalgia, loss of strength or function in extremities. Neuro: Pt denies new onset weakness, paresthesias. - Related Data Home Medications Medication Instructions Recorded Confirmed Aspirin [Adult Low Dose Aspirin EC] 162 mg PO DAILY 06/16/18 12/26/19 L.acidoph,Paracasei, B.lactis 1 cap PO BID 06/16/18 12/26/19 [Probiotic] Metoprolol Succinate [Toprol XL] 25 mg PO QAM 06/16/18 12/26/19 Omeprazole 20 mg PO HS 06/16/18 12/26/19 Simvastatin [Zocor] 40 mg PO HS 06/16/18 12/26/19 lisinopriL [Zestril] 2.5 mg PO HS 06/16/18 12/26/19 metFORMIN HCL 1,000 mg PO BID 06/16/18 12/26/19 Ketorolac [Toradol] 10 mg PO Q6HR PRN 12/20/19 12/26/19 Previous Rx's Medication Instructions Recorded Tamsulosin [Flomax] 0.4 mg PO DAILY #30 cap 12/12/19 Ketorolac [Toradol] 10 mg PO Q6HR #12 tab 12/26/19 Azithromycin [Zithromax Z-pack (6 0 mg PO DIRECTED #6 tab 03/31/20 tabs)] Ondansetron Odt [Zofran Odt] 4 mg PO Q8HR PRN 3 Days #9 tab 04/01/20 Allergies Allergy/AdvReac Type Severity Reaction Status Date / Time meperidine [From Demerol] Allergy Rash/Hives, Verified 04/02/20 10:38 vomiting Review of Systems ROS Statement: Those systems with pertinent positive or pertinent negative responses have been documented in the HPI. ROS Other: All systems not noted in ROS Statement are negative. 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-no chemo or radiation History of Any Multi-Drug Resistant Organisms: None Reported Past Surgical History: Bariatric Surgery, Coronary Bypass/CABG, Joint Replacement Additional Past Surgical History / Comment(s): bilateral knees replaced, lithotripsy and renal stents, gastric sleeve, right kidney surgery Past Anesthesia/Blood Transfusion Reactions: Previous Problems w/ Anesthesia Additional Past Anesthesia/Blood Transfusion Reaction / Comment(s): slow to recover,no hx blood transfusion Past Psychological History: No Psychological Hx Reported Smoking Status: Never smoker Past Alcohol Use History: None Reported Past Drug Use History: None Reported - Past Family History Mother History Unknown: Yes Family Medical History: Coronary Artery Disease (CAD) Father History Unknown: Yes Family Medical History: COPD, Coronary Artery Disease (CAD), Diabetes Mellitus General Exam - General Exam Comments Initial Comments: Constitutional: NAD, AOX3, Pt has pleasant affect. HEENT: NC/AT, trachea midline, neck supple, no lymphadenopathy. External ears appear normal, without discharge. Mucous membranes moist. Eyes PERRLA, EOM intact. There is no scleral icterus. No pallor noted. Cardiopulmonary: RRR, no murmurs, rubs or gallops, no JVD noted. Lungs CTAB in anterior and posterior morejon. No peripheral edema. Abdominal exam: Abdomen soft and non-distended. Abdomen very mild generalized tenderness. Bowel sounds active in LLQ. No hepatosplenomegaly. No ecchymosis Neuro: CN II-XII grossly intact. No nuchal rigidity. No raccon eyes, no king sign, no hemotympanum. No cervical spinal tenderness. MSK: No posterior calf tenderness bilaterally, homans sign negative bilaterally. Posterior tibialis and radial pulse +2 bilaterally. Sensation intact in upper and lower extremities. Full active ROM in upper and lower extremities, 5/5 stregnth. Limitations: no limitations Course Vital Signs 04/02/20 04/02/20 04/02/20 10:31 11:57 12:02 Temperature 99.1 F Pulse Rate 104 H 101 H Respiratory 20 21 Rate Blood Pressure 140/77 153/81 O2 Sat by Pulse 94 L 90 L 93 L Oximetry 04/02/20 13:01 Temperature Pulse Rate 96 Respiratory 20 Rate Blood Pressure 152/76 O2 Sat by Pulse 93 L Oximetry Medical Decision Making - Medical Decision Making 64-year-old male patient covered positive solitary kidney to ED for nausea vomiting denies weakness fall last night. Patient vital signs display oxygenati on down to 90 on room air. Patient placed on supplemental oxygen this increased to 97. Laboratory investigations reveal leukocytosis acute kidney injury mildly elevated lactic acid. CRP and LDH are elevated. Abdomen pelvis lays bilateral diffuse airspace disease correlation for infectious or vascular etiology. Severe motion artifact on abdomen pelvis. Puncture calculi left kidney. CT brain and C-spineany acute intracranial abnormality. No acute fracture midline cervical spine. Infiltrates upper lobes. Patient clinical picture consistent with pelvic infection dehydration. Will be admitted to the hospital for rehydration and started on steroids patient was administered Rocephin emergency department and did take azithromycin at home. Case discussed with Dr. Garcia. - Lab Data Result diagrams: 04/02/20 11:45 04/02/20 11:45 Lab Results 04/02/20 04/02/2004/02/20 Range/Units 11:45 11:45 11:45 WBC 15.2 H (3.8-10.6) k/uL RBC 4.64 (4.30-5.90) m/uL Hgb 13.7 (13.0-17.5) gm/dL Hct 42.1 (39.0-53.0) % MCV 90.9 (80.0-100.0) fL MCH 29.7 (25.0-35.0) pg MCHC 32.6 (31.0-37.0) g/dL RDW 13.2 (11.5-15.5) % Plt Count 326 (150-450) k/uL MPV 7.7 Neutrophils % 91 % Lymphocytes % 5 % Monocytes % 3 % Eosinophils % 0 % Basophils % 0 % Neutrophils # 13.8 H (1.3-7.7) k/uL Lymphocytes # 0.8 L (1.0-4.8) k/uL Monocytes # 0.5 (0-1.0) k/uL Eosinophils # 0.0 (0-0.7) k/uL Basophils # 0.0 (0-0.2) k/uL PT (9.0-12.0) sec INR (<1.2) APTT (22.0-30.0) sec Sodium 136 L (137-145) mmol/L Potassium 4.8 (3.5-5.1) mmol/L Chloride 103 (98-107) mmol/L Carbon Dioxide 19 L (22-30) mmol/L Anion Gap 14 mmol/L BUN 27 H (9-20) mg/dL Creatinine 2.53 H (0.66-1.25) mg/dL Est GFR (CKD-EPI)AfAm 30 (>60 ml/min/1.73 sqM) Est GFR (CKD-EPI)NonAf 26 (>60 ml/min/1.73 sqM) Glucose 124 H (74-99) mg/dL POC Glucose (mg/dL) (75-99) mg/dL POC Glu Profiling Machine Operator ID Plasma Lactic Acid Ryne 2.2 H* (0.7-2.0) mmol/L Calcium 9.2 (8.4-10.2) mg/dL Magnesium 1.7 (1.6-2.3) mg/dL Total Bilirubin 0.8 (0.2-1.3) mg/dL AST 44 (17-59) U/L ALT 25 (4-49) U/L Alkaline Phosphatase 60 (38-126) U/L Lactate Dehydrogenase 794 H (313-618) U/L Creatine Kinase 129 (55-170) U/L C-Reactive Protein 357.3 H (<10.0) mg/L Total Protein 7.2 (6.3-8.2) g/dL Albumin 4.0 (3.5-5.0) g/dL 04/02/20 04/02/20 Range/Units 11:46 11:49 WBC (3.8-10.6) k/uL RBC (4.30-5.90) m/uL Hgb (13.0-17.5) gm/dL Hct (39.0-53.0) % MCV (80.0-100.0) fL MCH (25.0-35.0) pg MCHC (31.0-37.0) g/dL RDW (11.5-15.5) % Plt Count (150-450) k/uL MPV Neutrophils % % Lymphocytes % % Monocytes % % Eosinophils % % Basophils % % Neutrophils # (1.3-7.7) k/uL Lymphocytes # (1.0-4.8) k/uL Monocytes # (0-1.0) k/uL Eosinophils # (0-0.7) k/uL Basophils # (0-0.2) k/uL PT 11.0 (9.0-12.0) sec INR 1.1 (<1.2) APTT 28.7 (22.0-30.0) sec Sodium (137-145) mmol/L Potassium (3.5-5.1) mmol/L Chloride (98-107) mmol/L Carbon Dioxide (22-30) mmol/L Anion Gap mmol/L BUN (9-20) mg/dL Creatinine (0.66-1.25) mg/dL Est GFR (CKD-EPI)AfAm (>60 ml/min/1.73 sqM) Est GFR (CKD-EPI)NonAf (>60 ml/min/1.73 sqM) Glucose (74-99) mg/dL POC Glucose (mg/dL) 118 H (75-99) mg/dL POC Glu Profiling Machine Operator ID Valery Rdedy Plasma Lactic Acid Ryne (0.7-2.0) mmol/L Calcium (8.4-10.2) mg/dL Magnesium (1.6-2.3) mg/dL Total Bilirubin (0.2-1.3) mg/dL AST (17-59) U/L ALT (4-49) U/L Alkaline Phosphatase (38-126) U/L Lactate Dehydrogenase (313-618) U/L Creatine Kinase (55-170) U/L C-Reactive Protein (<10.0) mg/L Total Protein (6.3-8.2) g/dL Albumin (3.5-5.0) g/dL - EKG Data -: EKG Interpreted by Me (and Dr. Garcia ) EKG Comments: ventricular rate 110, GA interval 180, QRS 88, QT/QTC 350/437. Sinus tachycardia. Otherwise normal EKG. Disposition Clinical Impression: COVID-19, Acute kidney injury Disposition: ADMITTED IP TO THIS HOSP Condition: Serious Is patient prescribed a controlled substance at d/c from ED?: No Referrals: Jorge Urrutia DO [Primary Care Provider] - 1-2 days
[2020-04-02 12:12] LABS: Basophils % (A) 0 %; Eosinophils % (A) 0 %; HCT 42.1 % (39.0-53.0); HGB 13.7 gm/dL (13.0-17.5); Lymphocytes # (A) 0.8 k/uL (1.0-4.8); Lymphocytes % (A) 5 %; MCH 29.7 pg (25.0-35.0); MCHC 32.6 g/dL (31.0-37.0); MCV 90.9 fL (80.0-100.0); Mean Platelet Volume 7.7; Monocytes # (A) 0.5 k/uL (0-1.0); Monocytes % (A) 3 %; Neutrophils # (A) 13.8 k/uL (1.3-7.7); Neutrophils % (A) 91 %; Platelet Count 326 k/uL (150-450); RBC 4.64 m/uL (4.30-5.90); RDW 13.2 % (11.5-15.5); WBC 15.2 k/uL (3.8-10.6)
[2020-04-02 12:15] LABS: INR 1.1 (<1.2); Partial Thromboplastin Time 28.7 sec (22.0-30.0)
[2020-04-02 12:19] LABS: Calcium 9.2 mg/dL (8.4-10.2); Total Bilirubin 0.8 mg/dL (0.2-1.3); Total Protein 7.2 g/dL (6.3-8.2)
[2020-04-02 12:21] LABS: Magnesium 1.7 mg/dL (1.6-2.3); Potassium 4.8 mmol/L (3.5-5.1)
[2020-04-02] MEDS: SODIUM CHLORIDE 0.9% 1,000 ML IV SCH (12:38)
--- NOTE | 2020-04-02 12:47 | XR ---
EXAMINATION TYPE: XR chest 1V portable DATE OF EXAM: 04/02/2020 HISTORY: Shortness of breath. COMPARISON: 03/31/2020 TECHNIQUE: Single view of the chest is submitted. FINDINGS: Demonstrated are scattered senescent parenchymal change. Patchy density left lower lobe may reflect underlying pneumonia. Correlate clinically and progress st udies are recommended. The heart is stable. Hilar and mediastinal structures are within normal limits. Degenerative changes are seen of the dorsal spine. IMPRESSION: 1. Patchy density left lower lobe may reflect underlying pneumonia. Correlate clinically and progres s studies are recommended.
--- NOTE | 2020-04-02 12:48 | XR ---
EXAMINATION TYPE: XR pelvis AP view DATE OF EXAM: 04/02/2020 CLINICAL HISTORY: pain TECHNIQUE: Single view the pelvis is submitted. FINDINGS: No evidence for fracture, dislocation or bony lesion. Joint spaces are well-preserved. S I joints appear symmetric. IMPRESSION: 1. No acute fracture or dislocation seen. ICD 10 NO FRACTURE, INITIAL EVALUATION
[2020-04-02 13:08] LABS: C Reactive Protein 357.3 mg/L (<10.0)
--- NOTE | 2020-04-02 13:23 | CT ---
EXAMINATION TYPE: CT brain delores baldwin con DATE OF EXAM: 04/02/2020 COMPARISON: None HISTORY: 64-year-old male Weakness with fall. CT DLP: 1698.8 mGycm Automated exposure control for dose reduction was used. Technique: Examination of the head was done in axial plane without intravenous contrast. Coronal and sagittal reconstructions performed. CT of the cervical spine was obtained in axial plane without intravenous injection of contrast mater ial. Coronal and sagittal reformatted images were obtained from the axial views for evaluation of f ractures, spinal alignment and canal. FINDINGS: Head: There is no evidence of acute intracranial hemorrhage, acute ischemic changes, mass, mass-effect, or extra-axial fluid collection. There is no effacement of cerebral sulci or basal subarachnoid cister ns. There is no hydrocephalus. There is no midline shift. Sheffield-white matter distinction is preserv ed. Suspect prior sinonasal surgery. Mild mucosal thickening throughout the ethmoid air cells. Mild bifrontal cerebral cortical volume loss. Mild patchy white matter hypodensities in both cerebral hemispheres. Cervical spine: No craniocervical junction abnormality, predental space widening, or prevertebral soft tissue swellin g. Preserved alignment of the cervical spine though with reversal of the normal cervical lordosis. Mild degenerative disc disease throughout, more moderate at C5-C6. Disc osteophyte complex at this le rosa causes mild narrowing of the spinal canal. Additional posterior disc bulge at C4-C5 minimally narrows the spinal canal. No acute fracture of the cervical spine. Hypertrophic facet and uncovertebral joint arthropathy scattered throughout. Variable mild neuroforaminal stenoses. Visualized upper lungs show patchy infiltrates. Sagittal and coronal reformatted images confirm above findings. COMBINED IMPRESSION: 1. Mild atrophy and changes of chronic small vessel ischemic disease. No acute intracranial abnormali ty seen. 2. No acute fracture or malalignment of the cervical spine. Mild to moderate spondylotic change parti cularly at C4-C6 levels. 3. Partially visualized infiltrates in the upper lungs. Correlate as to etiology.
--- NOTE | 2020-04-02 13:32 | CT ---
EXAMINATION TYPE: CT abdomen pelvis wo con DATE OF EXAM: 04/02/2020 COMPARISON: 11/18/2019 HISTORY: weakness with fall and low back pain CT DLP: 1809 mGycm Automated exposure control for dose reduction was used. TECHNIQUE: Helical acquisition of images was performed from the lung bases through the pelvis. FINDINGS: LUNG BASES: There are bilateral areas of consolidation involving the lungs correlate for pneumonia. S ternotomy wires are seen.. Coronary artery calcification noted. LIVER/GB: No significant abnormality is appreciated. PANCREAS: No significant abnormality is seen. SPLEEN: No significant abnormality is seen. ADRENALS: Left adrenal gland thickening noted. KIDNEYS: Right kidney is not seen consistent with prior exam. A punctate nonobstructing left renal ca lculi noted. ADENOPATHY: None visualized. OSSEOUS STRUCTURES: Arthropathy of the hips. Degenerative change of the spine.. BOWEL: Postoperative change involving the stomach noted. Bowel gas pattern nonspecific. There is a sm all hiatal hernia. OTHER: Aorta of normal caliber. Motion artifact significantly limits the exam. Attenuation seen along the right colon and liver is felt most likely to be related to artifact rather than fluid. This coul d be correlated with ultrasound given the limitations of the exam. IMPRESSION: 1. Bilateral diffuse airspace disease correlate for infectious or vascular etiology. 2. Nonspecific abdomen with limitation due to severe motion artifact. Abnormal attenuation surroundin g the spleen and liver and bowel are felt to be more likely artifactual due to motion rather than rep resenting free fluid surrounding these organs. Given the limitation of the exam would recommend ultra sound for confirmation. 3. Single left kidney with punctate calculi but no evidence of obstruction.
[2020-04-02] MEDS ORDERED: NALOXONE 0.4 MG/ML 1 ML VIAL IV PRN (14:21)
[2020-04-02] MEDS ORDERED: ACETAMINOPHEN TAB 325 MG TAB PO PRN (14:21)
--- NOTE | 2020-04-02 14:48 | US ---
EXAMINATION TYPE: US abdomen complete DATE OF EXAM: 04/02/2020 COMPARISON: CT done same day CLINICAL HISTORY: r/o free fluid . EXAM MEASUREMENTS: Liver Length: 14.9 cm Gallbladder Wall: 0.2 cm CBD: 0.7 cm Spleen: 13.6 cm Right Kidney: Surgically absent Left Kidney: 14.7 x 6.6 x 6.3 cm Technically difficult study due to extensive midline bowel gas. Pancreas: not well seen due to extensive midline bowel gas Liver: limited visualization to intercostal window Gallbladder: No stones seen Evidence for sonographic Izquierdo's sign: No CBD: measures 0.7 cm Spleen: wnl Right Kidney: Surgically absent Left Kidney: No hydronephrosis or masses seen Upper IVC: not well seen Abd Aorta: proximal portion not seen, otherwise wnl. No free fluid noted . The liver is homogenous. The intrahepatic portion of the IVC and proximal abdominal aorta are within normal limits. There is no evidence of cholelithiasis. Common bile duct is unremarkable. The visu alized portions of the pancreas are homogenous. The spleen is unremarkable. No renal lesions are se en. IMPRESSION: 1. Previous right-sided nephrectomy change. Otherwise unremarkable study.
[2020-04-02 15:49] LABS: Amorphous Sediment,Urine Rare /hpf; Appearance,Urine Cloudy (Clear); Bacteria,Urine Rare /hpf; Bilirubin,Urine Negative (Negative); Blood,Urine Small (Negative); Color,Urine Yellow; Glucose,Urine (UA) Negative (Negative); Granular Casts,Urine 6 /lpf (0); Ketones,Urine 1+ (Negative); Leukocyte Esterase,Urine Negative (Negative); Mucus,Urine Rare /hpf; Nitrite,Urine Negative (Negative); PH, Urine 5.5 (5.0-8.0); Protein,Urine 2+ (Negative); RBC,Urine 2 /hpf (0-5); Specific Gravity,Urine 1.018 (1.001-1.035); Squamous Epithelial Cell,Urine 1 /hpf (0-4); Urobilinogen,Urine <2.0 mg/dL (<2.0); WBC,Urine 2 /hpf (0-5)
[2020-04-03] MEDS: SODIUM CHLORIDE 0.9% 1,000 ML IV SCH ×4 (08:08→22:44)
--- NOTE | 2020-04-03 08:58 | P.CNPUL ---
History of Present Illness Consult date: 04/03/20 Requesting physician: Jorge Urrutia Reason for consult: dyspnea, other Chief complaint: Positive COVID 19, nausea, vomiting, diarrhea, dyspnea History of present illness: 64-year-old white male patient of Dr. Urrutia with history of diabetes mellitus type 2, hypertension, hyperlipidemia, GERD/reflux, sleep apnea on CPAP therapy, renal cancer status post nephrectomy, artery artery disease with previous bypass surgery, morbid obesity status post bariatric surgery, lifetime nonsmoker who presented to the emergency department on 04/02/2020 with complaints of nausea, vomiting diarrhea for last couple of days, patient was diagnosed for Covid 19 on 03/31/2020. Subjectively patient denies any shortness of breath however his spouse believes that his breathing is slightly shorter than before. Overall she feels very weak and is having muscle aches everywhere. Patient had a fall yesterday landing on his gluteal region, he fell back and hit his head. He denies any loss of consciousness, is having a mild frontal headache today. Patient's urologist Dr. Camarena recommended a CT of the abdomen and pelvis without contrast to rule out of symptomatic kidney stone which he had reportedly had before and had similar symptoms. Denies any chest pain, no cough, no chills, no night sweats, no palpitations, no dysuria, frequency or urgency. He T of the abdomen and pelvis was completed showing a punctate nonobstructing left renal calculi, lung bases showed bilateral areas of consolidation involving the lungs, and nonspecific abdomen with abnormal attenuation surrounding the spleen and liver and bowel that were felt to be more artifactual due to motion rather than representing free fluid. Single left kidney with punctate calculi with no evidence of obstruction. Chest x-ray showed patchy density in the left lower lobe likely related to underlying pneumonia. Strep the pelvis showed no acute fracture or dislocation. CT of the brain and cervical neck showed the mild atrophy and changes of chronic small vessel ischemic disease, no acute intracranial abnormality, no acute fracture or malalignment of the cervical spine. Abdominal ultrasound showed an unremarkable study, and evidence of previous right-sided nephrectomy. Sinus tachycardia on EKG with a rate of 110 BPM. Lab work showed leukocytosis with white blood cell count of 15.2, acute kidney injury, with BUN of 27 and creatinine of 2.53, plasma lactic acid of 2.2, ferritin level was 535, LDH was 794, CRP was 357, troponin was less than 0.012, pro-calcitonin was elevated at 1.26, urinalysis showed 2+ protein, 1+ ketones, but no clear evidence of urinary tract infection. She is afebrile, he is on room air, pulse ox is 95%, hemodynamically he is stable, is in sinus mechanism on the monitor, with a controlled rate, he was started on Rocephin for empiric and pneumatic coverage, he was given a dose of oral Decadron in the emergency department, his fluid resuscitated with 1 L of fluid bolus, lactic acid is now within normal range, 1.2, and tenuous on IV fluids at 125 ML per hour. He looks pretty comfortable, he is awaiting a bed on medical surgical floor, denies any shortness of breath, no chest pain, no palpitations. Review of Systems All systems: negative Constitutional: Denies chills, Denies fever Eyes: denies blurred vision, denies pain Ears, nose, mouth and throat: Denies headache, Denies sore throat Cardiovascular: Denies chest pain, Denies shortness of breath Respiratory: Reports dyspnea, Denies cough Gastrointestinal: Reports diarrhea, Reports nausea, Reports vomiting, Denies abdominal pain Musculoskeletal: Denies myalgias Integumentary: Denies pruritus, Denies rash Neurological: Denies numbness, Denies weakness Psychiatric: Denies anxiety, Denies depression Endocrine: Denies fatigue, Denies weight change Past Medical History Past Medical History: Diabetes Mellitus, GERD/Reflux, Hyperlipidemia, Hypertension, Sleep Apnea/CPAP/BIPAP Additional Past Medical History / Comment(s): uses cpap,Kidney stones, right kid [place] failure with mass-dx kidney [id number] chemo or radiation History of Any Multi-Drug Resistant Organisms: None Reported Past Surgical History: Bariatric Surgery, Coronary Bypass/CABG, Joint Replacement Additional Past Surgical History / Comment(s): bilateral knees replaced, lithotripsy and renal stents, gastric sleeve, right kidney surgery Past Anesthesia/Blood Transfusion Reactions: Previous Problems w/ Anesthesia Additional Past Anesthesia/Blood Transfusion Reaction / Comment(s): slow to recover,no hx blood transfusion Past Psychological History: No Psychological Hx Reported Smoking Status: Never smoker Past Alcohol Use History: None Reported Past Drug Use History: None Reported - Past Family History Mother History Unknown: Yes Family Medical History: Coronary Artery Disease (CAD) Father History Unknown: Yes Family Medical History: COPD, Coronary Artery Disease (CAD), Diabetes Mellitus Medications and Allergies Home Medications Medication Instructions Recorded Confirmed Type Metoprolol Succinate [Toprol XL] 25 mg PO DAILY 06/16/18 04/02/20 History Omeprazole 20 mg PO HS 06/16/18 04/02/20 History Simvastatin [Zocor] 40 mg PO HS 06/16/18 04/02/20 History lisinopriL [Zestril] 2.5 mg PO HS 06/16/18 04/02/20 History metFORMIN HCL 1,000 mg PO BID 06/16/18 04/02/20 History Ondansetron Odt [Zofran Odt] 4 mg PO Q8HR PRN 3 Days #9 tab 04/01/20 04/02/20 Rx Azithromycin [Zithromax Z-pack (6 See Taper PO DIRECTED 04/02/20 04/02/20 History tabs)] Sildenafil Citrate 100 mg PO DAILY PRN 04/02/20 04/02/20 History Allergies Allergy/AdvReac Type Severity Reaction Status Date / Time meperidine [From Demerol] Allergy Rash/Hives, Verified 04/02/20 16:06 vomiting Physical Exam Vitals: Vital Signs Temp Pulse Resp BP Pulse Ox 04/03/20 08:12 97.7 F 04/03/20 08:04 50 L 18 139/73 95 04/03/20 05:00 97.6 F 50 L 16 128/68 04/03/20 01:00 57 L 16 137/77 95 04/03/20 00:00 55 L 16 144/73 96 04/02/20 22:56 97.7 F 64 18 129/73 98 04/02/20 21:17 64 20 134/76 97 04/02/20 17:42 70 20 132/70 96 04/02/20 16:48 98.9 F 74 21 133/72 94 L 04/02/20 15:10 84 18 148/72 94 L 04/02/20 13:01 96 20 152/76 93 L 04/02/20 12:02 101 H 21 153/81 93 L 04/02/20 11:57 90 L 04/02/20 10:31 99.1 F 104 H 20 140/77 94 L GENERAL EXAM: Alert, very pleasant 64-year-old white male resting in a gurney, in emergency department, on room air, the pulse ox is 95% comfortable in no apparent distress. HEAD: Normocephalic/atraumatic. EYES: Normal reaction of pupils, equal size. Conjunctiva pink, sclera white. NOSE: Clear with pink turbinates. THROAT: No erythema or exudates. NECK: No masses, no JVD, no thyroid enlargement, no adenopathy. CHEST: No chest wall deformity. Symmetrical expansion. LUNGS: Equal air entry with no crackles, wheeze, rhonchi or dullness. CVS: Regular rate and rhythm, normal S1 and S2, no gallops, no murmurs, no rubs ABDOMEN: Soft, nontender. No hepatosplenomegaly, normal bowel sounds, no guarding or rigidity. EXTREMITIES: No clubbing, no edema, no cyanosis, 2+ pulses and upper and lower extremities. MUSCULOSKELETAL: Muscle strength and tone normal. SPINE: No scoliosis or deformity SKIN: No rashes CENTRAL NERVOUS SYSTEM: Alert and oriented -3. No focal deficits, tone is normal in all 4 extremities. PSYCHIATRIC: Alert and oriented -3. Appropriate affect. Intact judgment and insight. Results - Laboratory Findings CBC and BMP: 04/02/20 11:45 04/02/20 11:45 PT/INR, D-dimer PT 11.0 sec (9.0-12.0) 04/02/20 11:46 INR 1.1 (<1.2) 04/02/20 11:46 Abnormal lab findings: Abnormal Labs 04/02/20 04/02/20 04/02/20 11:45 11:45 11:45 WBC 15.2 H Neutrophils # 13.8 H Lymphocytes # 0.8 L Sodium 136 L Carbon Dioxide 19 L BUN 27 H Creatinine 2.53 H Glucose 124 H POC Glucose (mg/dL) Plasma Lactic Acid Ryne 2.2 H* Ferritin 535.0 H Lactate Dehydrogenase 794 H C-Reactive Protein 357.3 H Procalcitonin Urine Protein Urine Ketones Urine Blood Amorphous Sediment Urine Bacteria Urine Mucus 04/02/20 04/02/20 04/02/20 11:46 11:49 13:04 WBC Neutrophils # Lymphocytes # Sodium Carbon Dioxide BUN Creatinine Glucose POC Glucose (mg/dL) 118 H Plasma Lactic Acid Ryne Ferritin Lactate Dehydrogenase C-Reactive Protein Procalcitonin 1.26 H Urine Protein 2+ H Urine Ketones 1+ H Urine Blood Small H Amorphous Sediment Rare H Urine Bacteria Rare H Urine Mucus Rare H - Diagnostic Findings Chest x-ray: report reviewed, image reviewed Additional studies: CT of the abdomen and pelvis reviewed, ultrasound the abdomen, EKG, CT of the head and cervical spine, pelvis x-ray all reviewed Assessment and Plan Plan: Assessment: #1. Acute COVID 19 pneumonitis, chest x-ray shows diffuse bilateral infiltrates, although patient denies significant pulmonary complaints, he is on room air, no shortness of breath at this time, tested positive on an outpatient basis on 03/31/2020 #2. Nausea, vomiting, diarrhea related to acute Covid 19 infection, CT of the abdomen and pelvis with contrast ruled out possibility of obstructive renal stone, unremarkable CT of the abdomen and pelvis #3. A fall at home, pelvis x-ray was negative, CT of the abdomen and cervical spine was negative #4. Acute kidney injury #5. Chronic kidney disease, unspecified #6. History of right renal carcinoma, with history of right nephrectomy in September 2018 #7. History of urolithiasis, patient had a cystoscopy with left ureteral Ronnie be and laser lithotripsy and stone basketing on 12/26/2019, and CT of the abdom en and pelvis showed punctate nonobstructive left renal calculi #8. Hypertension #9. Hyperlipidemia #10. Diabetes mellitus type 2 #11. Sleep apnea on CPAP therapy #12. Nonsmoker #13. Morbid obesity with previous bariatric surgery #14. Coronary artery disease with previous bypass grafting Plan: We'll continue azithromycin and Rocephin, continue oral Decadron 6 mg daily, and continue IV hydration, repeat labs, follow-up inflammatory markers, patient is on room air, denies any shortness of breath, presented mostly with nausea vomiting and diarrhea. Not a candidate for Remdesivir at this time due to very mild pulmonary symptoms, he still on room air, and due to his poor renal fu nction. Should his condition get worse, we'll have to wait for his renal function to improve before offering Remdesivir. Continue supportive treatment right now. I performed a history & physical examination of the patient and discussed their management with my nurse practitioner, Marine Hidalgo. I reviewed the nurse practitioner's note and agree with the documented findings and plan of care. Lung sounds are positive for diminished breath sounds. The findings and the impression was discussed with the patient. I attest to the documentation by the nurse practitioner. Time with Patient: Greater than 30
[2020-04-03] MEDS ORDERED: METOPROLOL SUCCINATE (ER) 25 MG TAB.ER.24H PO SCH ×2 (09:45)
[2020-04-03 10:08] LABS: Glucose,Whole Blood 159 mg/dL (75-99)
[2020-04-03] MEDS: ENOXAPARIN 30 MG/0.3 ML SYRINGE SQ SCH (10:08)
[2020-04-03] MEDS: PANTOPRAZOLE 40 MG/10 ML VIAL IVP SCH (10:08)
[2020-04-03] MEDS: AZITHROMYCIN 500 MG in SODIUM CHLORIDE 0.9% 250 ML IVPB SCH (10:12)
[2020-04-03] MEDS: dexAMETHasone 2 MG TAB PO SCH (10:13)
[2020-04-03] MEDS: ZINC SULFATE 220 MG CAP PO SCH (10:14)
[2020-04-03] MEDS: INSULIN ASPART (NovoLOG) 100 UNIT/ML VIAL SQ SCH ×3 (10:16→22:36)
[2020-04-03] MEDS: ASCORBIC ACID 500 MG TAB PO SCH (10:21)
[2020-04-03 12:04] LABS: Glucose,Whole Blood 165 mg/dL (75-99)
[2020-04-03] MEDS ORDERED: Magnesium Replacement Protocol 1 EACH MISC MISCELLANE PRN (12:31)
--- NOTE | 2020-04-03 13:53 | P.HPIM ---
History of Present Illness H&P Date: 04/03/20 Chief Complaint: Confusion, imbalance ,weakness and falls This is a pleasant 64-year-old gentleman with past medical history of diabetes mellitus, gastroesophageal reflux disease, hyperlipidemia, hypertension, sleep apnea on CPAP, CAD, CABG, renal cell CA status post right radical nephrectomy, positive Covid test reported on 03/31 and multiple other medical issues, presented to the ER with complaints of nausea, vomiting ,increased weakness, status post falls 2, mild confusion, imbalance. Reports landing on his gluteal region, following Hitting his head, denies losing consciousness. Denies chest pain, palpitations or shortness of breath. Reports minimal cough. On admission, O2 sat 90% on room air, EKG reported sinus tachycardia. Currently sinus bradycardia via with heart rates down into the high 40s, repeat EKG ordered. Elevated CRP, LDH and pro-calcitonin. Ferritin 535, lactate dehydrogenase 794.T-max 99.1, WBC 15.2. Creatinine 2.53, baseline around 1.3- 1.5. Bicarb 19. UA reported rare bacteria negative for leukocytes negative for nitrates 2+ protein 1+ ketones and small blood .D-dimer 0.81. INR 1.1. Lactic acid on admission 2.2, down to 1.2 with IV fluid hydration. Chest x-ray reported patchy density left lower lobe possible underlying pneumonia. xray of Pelvis reported no acute fracture or dislocation. CT of abdomen and pelvis reported bilateral areas of consolidation involving lungs possible pneumonia, single left kidney with a punctuate nonobstructing left renal calculi noted, nonspecific abdomen-limited exam, attenuation along the right colon, spleen and liver most likely artifact rather than fluid. CT brain and spine reported no acute intracranial abnormality,, no acute fracture or malalignment of the C- spine, mild to moderate spondylitic change particularly at C4-C6 levels, upper lungs infiltrates. Abdominal ultrasound reported previous right-sided nephrectomy change otherwise unremarkable. Received IV fluid bolus, Rocephin, Decadron in the ER. Review of Systems ROS Statement: Those systems with pertinent positive or pertinent negative responses have been documented in the HPI. ROS Other: All systems not noted in ROS Statement are negative. Past Medical History Past Medical History: Diabetes Mellitus, GERD/Reflux, Hyperlipidemia, Hypertension, Sleep Apnea/CPAP/BIPAP Additional Past Medical History / Comment(s): uses cpap,Kidney stones, right kidney failure with mass-dx kidney [id number]-no chemo or radiation History of Any Multi-Drug Resistant Organisms: None Reported Past Surgical History: Bariatric Surgery, Coronary Bypass/CABG, Joint Replacement Additional Past Surgical History / Comment(s): bilateral knees replaced, lithotripsy and renal stents, gastric sleeve, right kidney surgery Past Anesthesia/Blood Transfusion Reactions: Previous Problems w/ Anesthesia Additional Past Anesthesia/Blood Transfusion Reaction / Comment(s): slow to recover,no hx blood transfusion Past Psychological History: No Psychological Hx Reported Smoking Status: Never smoker Past Alcohol Use History: None Reported Past Drug Use History: None Reported - Past Family History Mother History Unknown: Yes Family Medical History: Coronary Artery Disease (CAD) Father History Unknown: Yes Family Medical History: COPD, Coronary Artery Disease (CAD), Diabetes Mellitus Medications and Allergies Home Medications Medication Instructions Recorded Confirmed Type Metoprolol Succinate [Toprol XL] 25 mg PO DAILY 06/16/18 04/02/20 History Omeprazole 20 mg PO HS 06/16/18 04/02/20 History Simvastatin [Zocor] 40 mg PO HS 06/16/18 04/02/20 History lisinopriL [Zestril] 2.5 mg PO HS 06/16/18 04/02/20 History metFORMIN HCL 1,000 mg PO BID 06/16/18 04/02/20 History Ondansetron Odt [Zofran Odt] 4 mg PO Q8HR PRN 3 Days #9 tab 04/01/20 04/02/20 Rx Azithromycin [Zithromax Z-pack (6 See Taper PO DIRECTED 04/02/20 04/02/20 History tabs)] Sildenafil Citrate 100 mg PO DAILY PRN 04/02/20 04/02/20 History Allergies Allergy/AdvReac Type Severity Reaction Status Date / Time meperidine [From Demerol] Allergy Rash/Hives, Verified 04/02/20 16:06 vomiting Physical Exam Vitals: Vital Signs Temp Pulse Resp BP Pulse Ox 04/03/20 08:12 97.7 F 04/03/20 08:04 50 L 18 139/73 95 04/03/20 05:00 97.6 F 50 L 16 128/68 04/03/20 01:00 57 L 16 137/77 95 04/03/20 00:00 55 L 16 144/73 96 04/02/20 22:56 97.7 F 64 18 129/73 98 04/02/20 21:17 64 20 134/76 97 04/02/20 17:42 70 20 132/70 96 04/02/20 16:48 98.9 F 74 21 133/72 94 L 04/02/20 15:10 84 18 148/72 94 L 04/02/20 13:01 96 20 152/76 93 L 04/02/20 12:02 101 H 21 153/81 93 L 04/02/20 11:57 90 L 04/02/20 10:31 99.1 F 104 H 20 140/77 94 L PHYSICAL EXAM: VITAL SIGNS: As above GENERAL: Sitting up on stretcher, no acute distress HEENT: Conjunctivae normal. eyes normal. NECK: No JVD. No thyroid enlargement. No LNs CARDIOVASCULAR: S1, S2 regular.. No murmur RESPIRATION: Breath sounds diminished in the bases. No rhonchi, positive bibasilar crackles. ABDOMEN: Soft, nontender . No guarding. no masses palpable. No ascites, No hepatosplenomegaly.Bowel sounds heard. LEGS: No edema. no swelling PSYCHIATRY: Alert and oriented X3, mood and affect normal. NERVOUS SYSTEM: Cranial N 2-12 grossly normal. Moves all 4 limbs. Diffuse weakness, No focal deficits. Strength and sensation grossly intact.. Skin: Warm and dry, no rash Joints: No active swelling. No inflammation. Lymphatic system. No LN neck axilla. Results CBC & Chem 7: 04/02/20 11:45 04/02/20 11:45 Labs: Abnormal Lab Results - Last 24 Hours (Table) 04/02/20 04/02/20 04/02/20 Range/Units 11:45 11:45 11:45 WBC 15.2 H (3.8-10.6) k/uL Neutrophils # 13.8 H (1.3-7.7) k/uL Lymphocytes # 0.8 L (1.0-4.8) k/uL Sodium 136 L (137-145) mmol/L Carbon Dioxide 19 L (22-30) mmol/L BUN 27 H (9-20) mg/dL Creatinine 2.53 H (0.66-1.25) mg/dL Glucose 124 H (74-99) mg/dL POC Glucose (mg/dL) (75-99) mg/dL Plasma Lactic Acid Ryne 2.2 H* (0.7-2.0) mmol/L Ferritin 535.0 H (22.0-322.0) ng/mL Lactate Dehydrogenase 794 H (313-618) U/L C-Reactive Protein 357.3 H (<10.0) mg/L Procalcitonin (0.02-0.09) ng/mL Urine Protein (Negative) Urine Ketones (Negative) Urine Blood (Negative) Amorphous Sediment (None) /hpf Urine Bacteria (None) /hpf Urine Mucus (None) /hpf 04/02/20 04/02/20 04/02/20 Range/Units 11:46 11:49 13:04 WBC (3.8-10.6) k/uL Neutrophils # (1.3-7.7) k/uL Lymphocytes # (1.0-4.8) k/uL Sodium (137-145) mmol/L Carbon Dioxide (22-30) mmol/L BUN (9-20) mg/dL Creatinine (0.66-1.25) mg/dL Glucose (74-99) mg/dL POC Glucose (mg/dL) 118 H (75-99) mg/dL Plasma Lactic Acid Ryne (0.7-2.0) mmol/L Ferritin (22.0-322.0) ng/mL Lactate Dehydrogenase (313-618) U/L C-Reactive Protein (<10.0) mg/L Procalcitonin 1.26 H (0.02-0.09) ng/mL Urine Protein 2+ H (Negative) Urine Ketones 1+ H (Negative) Urine Blood Small H (Negative) Amorphous Sediment Rare H (None) /hpf Urine Bacteria Rare H (None) /hpf Urine Mucus Rare H (None) /hpf Assessment and Plan Assessment: Acute Covid 19 pneumonitis, possible pneumonia ,positive Covid test on 03/31/2020. Generalized weakness, status post falls secondary to the above Acute renal failure Chronic renal failure, stage IV History of renal CA with right nephrectomy Recent cystoscopy, lithotripsy and stone basketing,history of urolithiasis. CT reported non-obstructive left renal calculi. Diabetes mellitus Gastroesophageal reflux disease Hypertension Hyperlipidemia CAD or history of CABG Asymptomatic bradycardia Obstructive sleep apnea, on CPAP Obesity, BMI 34.7, history of bariatric surgery Plan: Continue on current medication regime ,monitoring and symptomatic treatment. Maintain IV fluid hydration, Rocephin, Zithromax, Decadron, Lovenox. Nephrology consulted related to acute renal failure, single kidney. Close monitoring of renal function, inflammatory markers. PT/OT. The impression and plan of care has been dictated as directed. : I performed a history and examination of this patient, discussed the same with the dictator. I agree with the dictator's note ,documented as a scribe. Any additional findings or plans will be noted.
[2020-04-03 16:48] LABS: Glucose,Whole Blood 228 mg/dL (75-99)
[2020-04-03 20:41] LABS: Glucose,Whole Blood 268 mg/dL (75-99)
[2020-04-03 22:31] LABS: Glucose,Whole Blood 273 mg/dL (75-99)
[2020-04-03] MEDS: ATORVASTATIN 20 MG TAB PO SCH (22:35)
[2020-04-04] MEDS: SODIUM CHLORIDE 0.9% 1,000 ML IV SCH ×3 (02:59→20:39)
[2020-04-04 06:44] LABS: Basophils % (A) 0 %; Eosinophils % (A) 0 %; HCT 34.5 % (39.0-53.0); HGB 11.3 gm/dL (13.0-17.5); Lymphocytes # (A) 0.7 k/uL (1.0-4.8); Lymphocytes % (A) 5 %; MCH 30.2 pg (25.0-35.0); MCHC 32.8 g/dL (31.0-37.0); MCV 92.2 fL (80.0-100.0); Mean Platelet Volume 7.5; Monocytes # (A) 0.6 k/uL (0-1.0); Monocytes % (A) 5 %; Neutrophils # (A) 11.5 k/uL (1.3-7.7); Neutrophils % (A) 88 %; Platelet Count 349 k/uL (150-450); RBC 3.74 m/uL (4.30-5.90); RDW 12.8 % (11.5-15.5); WBC 13.1 k/uL (3.8-10.6)
[2020-04-04 06:55] LABS: D-Dimer 0.55 mg/L FEU (<0.60)
[2020-04-04 07:26] LABS: Glucose,Whole Blood 191 mg/dL (75-99)
[2020-04-04] MEDS: PANTOPRAZOLE 40 MG/10 ML VIAL IVP SCH (08:38)
[2020-04-04] MEDS: ENOXAPARIN 30 MG/0.3 ML SYRINGE SQ SCH (08:39)
[2020-04-04] MEDS: INSULIN ASPART (NovoLOG) 100 UNIT/ML VIAL SQ SCH ×4 (08:39→20:39)
[2020-04-04] MEDS: ASCORBIC ACID 500 MG TAB PO SCH (08:39)
[2020-04-04] MEDS: ZINC SULFATE 220 MG CAP PO SCH (08:39)
[2020-04-04] MEDS: dexAMETHasone 2 MG TAB PO SCH (08:39)
[2020-04-04] MEDS: AZITHROMYCIN 500 MG in SODIUM CHLORIDE 0.9% 250 ML IVPB SCH (08:40)
[2020-04-04 10:17] LABS: African American GFR (CKD) 44.8 (60.0-200.0); Albumin 3.5 g/dL (3.80-4.90); Albumin/Globulin Ratio 1.94 (1.60-3.17); Anion Gap 9.2 mmol/L (4.00-12.00); BUN/Creat Ratio 18.33 Ratio (12.00-20.00); C Reactive Protein 10.5 mg/dL (0.0-0.8); Calcium 8.4 mg/dL (8.7-10.3); Carbon Dioxide 19.8 mmol/L (21.6-31.8); Globulin 1.8 g/dL (1.6-3.3); Magnesium 1.9 mg/dL (1.5-2.4); Non-African American GFR(CKD) 38.6 (60.0-200.0); Potassium 4.6 mmol/L (3.5-5.5); Total Bilirubin 0.3 mg/dL (0.3-1.2); Total Protein 5.3 g/dL (6.2-8.2)
[2020-04-04 10:55] LABS: Ferritin 606.4 ng/mL (22.0-322.0)
[2020-04-04 12:03] LABS: Glucose,Whole Blood 211 mg/dL (75-99)
--- NOTE | 2020-04-04 14:04 | CONS ---
CONSULTATION REASON FOR CONSULT: Renal failure. HISTORY OF PRESENT ILLNESS: Patient is a 64-year-old male who was admitted to the hospital on 04/02/2020 with complaints of fever. He was found to be COVID-19 positive. Patient has a history of renal cell cancer, status post right nephrectomy. He denies any significant chronic kidney disease. Previous creatinine is noted to be 1.5 and 1.3 mg/dL in October and November of 2019. On this admission, patient had a creatinine of 2.53 on 04/02 and today it is at 1.8. Patient denies use of any nonsteroidal anti-inflammatory agents. His blood pressure has not been significantly low. He is currently maintained on treatment for COVID-19 infection. He is on as Zithromax. He is on ceftriaxone, zinc, and patient is status post steroids. He is fairly stable from respiratory standpoint and is saturating 96%-95% on room air. Patient is being followed by Pulmonary and chest x-ray on initial admission showed patchy densities left lower lobe. PAST MEDICAL HISTORY: 1. Significant for chronic kidney disease stage 3. Baseline creatinine about 1.5-1.3 mg/dL. 2. History of right nephrectomy for renal cell cancer. 3. Hypertension. 4. Type 2 diabetes. 5. Gastroesophageal reflux disease. 6. Obstructive sleep apnea. 7. History of nephrolithiasis as well. PAST SURGICAL HISTORY: Bariatric surgery, bilateral knee arthroplasty, lithotripsies, right nephrectomy, gastric sleeve procedure. SOCIAL HISTORY: Negative for smoking, drug abuse or alcohol abuse. MEDICATIONS: Prior to admission included Zocor, Zestril, omeprazole, Toprol, metformin, Zofran, Zithromax. Allergies include DEMEROL. REVIEW OF SYSTEMS: As per HPI. Other systems negative. PHYSICAL EXAMINATION: Patient is comfortable, awake, not in any acute distress. Alert, oriented x3. Blood pressure is 163/75, heart rate 51 per minute, he is afebrile. Examination shows no evidence of edema bilateral lower extremities. Abdomen is soft, nontender. MEAL ATTENDANT exam is grossly intact. No focal deficits noted. Patient is alert and oriented x3. LABS: Show sodium 140, potassium 4.6, chloride 111. CO2 is 19.8, BUN 33, creatinine 1.8, hemoglobin 11.3 g/dL. ASSESSMENT: 1. Acute kidney injury secondary to underlying infection with an element of ATN as well as hypovolemia, currently patient is maintained on IV fluids which I will continue. His renal function is improving. He does have a solitary kidney. 2. COVID 19 infection with pneumonia, maintained on steroids, azithromycin, zinc, respiratory status, fairly stable at this point. 3. History of right nephrectomy for renal cell cancer. 4. Chronic kidney disease stage 3, baseline creatinine 1.3-1.5 as of October and November of 2019. Patient does have proteinuria. This will need to be further worked up. He may very well have underlying diabetic nephropathy. 5. Mild metabolic acidosis associated with renal failure. Continue to monitor for now. PLAN: Repeat labs in a.m. Continue IV fluids. Patient will need followup as outpatient for CKD. Thank you for this consultation. Will continue to follow the patient with you during his hospitalization. MMODL / IJN: [id number] /
--- NOTE | 2020-04-04 14:09 | P.CRDCN ---
History of Present Illness History of present illness: HISTORY OF PRESENTING ILLNESS Given the patient's Covid 19 status the patient was not seen or examined, review of chart and discussion with nursing staff was done. This is a pleasant 64-year-old male past medical history significant for coronary artery disease status post bypass grafting 2009, hypertension, dyslipidemia, obstructive sleep apnea, renal carcinoma s/p right nephrectomy and diabetes mellitus. He follows in the office with Dr. Lemon. We have been asked to see in consultation for bradycardia. He presented to the hospital with symptoms of nausea, vomiting and diarrhea. He was diagnosed with COVID as an outpatient. EKG on arrival revealed sinus tachycardia heart rate of 110. Chest x-ray reveals patchy density of the left lower lobe. CT of the abdomen and pel vis reveals bilateral diffuse airspace disease, nonspecific abdomen with limited study due to severe motion artifact, abnormal attenuation surrounding the spleen and liver felt to be more likely related to artifact but could also represent free fluid and a single left kidney noted. Abdominal ultrasound unremarkable. Laboratory data reviewed, WBC 13.1, hemoglobin 11.3, platelets 349, fibrinogen 6 31, d-dimer 0.55, sodium 140, potassium 4.6, creatinine 1.8 magnesium 1.9, C- reactive protein 357 on admission down to 10 today and procalcitonin 1.96. Return daily cardiac medications include Toprol 25 mg daily, simvastatin 40 mg at bedtime and lisinopril 2.5 mg at bedtime. Most recent echocardiogram obtained in the office September 2019 reveals preserved LV systolic function with ejection fraction 55%, mild concentric LVH and left atrial enlargement. Telemetry tracings indicate sinus mechanism and sinus bradycardia He has history of sleep apnea and is using his CPAP. Per nursing staff he has no dizziness, shortness of breath, palpitations or chest pain. Primary care team has held the toprol since admission. Average heart rate is in the 50's with lowest documented of 47. ASSESSMENT Sinus bradycardia, asymptomatic COVID 19 pneumonitis Dehydration secondary vomiting and diarrhea Sinus tachycardia secondary to dehydration and infection Acute kidney injury Coronary artery disease s/p bypass grafting Hypertension Dyslipidemia Sleep apnea PLAN Heart rates are stable with no significant symptomatic bradycardia noted. Continue current medical regimen and treatment for underlying COVD. We will follow along as needed, please call if there is any ongoing concern for symptomatic bradycardia. Follow up with Dr. Lemon upon discharge. Thank you kindly for this consultation. Nurse Practitioner note has been reviewed, I agree with a documented findings and plan of care. Patient was seen and examined. Past Medical History Past Medical History: Diabetes Mellitus, GERD/Reflux, Hyperlipidemia, Hypertension, Sleep Apnea/CPAP/BIPAP Additional Past Medical History / Comment(s): uses cpap,Kidney stones, right kidney failure with mass-dx kidney [id number] chemo or radiation History of Any Multi-Drug Resistant Organisms: None Reported Past Surgical History: Bariatric Surgery, Coronary Bypass/CABG, Joint Replacement Additional Past Surgical History / Comment(s): bilateral knees replaced, lithotripsy and renal stents, gastric sleeve, right kidney surgery Past Anesthesia/Blood Transfusion Reactions: Previous Problems w/ Anesthesia Additional Past Anesthesia/Blood Transfusion Reaction / Comment(s): slow to recover,no hx blood transfusion Past Psychological History: No Psychological Hx Reported Smoking Status: Never smoker Past Alcohol Use History: None Reported Past Drug Use History: None Reported - Past Family History Mother History Unknown: Yes Family Medical History: Coronary Artery Disease (CAD) Father History Unknown: Yes Family Medical History: COPD, Coronary Artery Disease (CAD), Diabetes Mellitus Medications and Allergies Home Medications Medication Instructions Recorded Confirmed Type Metoprolol Succinate [Toprol XL] 25 mg PO DAILY 06/16/18 04/02/20 History Omeprazole 20 mg PO HS 06/16/18 04/02/20 History Simvastatin [Zocor] 40 mg PO HS 06/16/18 04/02/20 History lisinopriL [Zestril] 2.5 mg PO HS 06/16/18 04/02/20 History metFORMIN HCL 1,000 mg PO BID 06/16/18 04/02/20 History Ondansetron Odt [Zofran Odt] 4 mg PO Q8HR PRN 3 Days #9 tab 04/01/20 04/02/20 Rx Azithromycin [Zithromax Z-pack (6 See Taper PO DIRECTED 04/02/20 04/02/20 History tabs)] Sildenafil Citrate 100 mg PO DAILY PRN 04/02/20 04/02/20 History Allergies Allergy/AdvReac Type Severity Reaction Status Date / Time meperidine [From Demerol] Allergy Rash/Hives, Verified 04/02/20 16:06 vomiting Physical Exam Vitals: Vital Signs Temp Pulse Resp BP Pulse Ox 04/04/20 07:43 98 F 51 L 16 163/75 95 04/04/20 04:23 47 L 139/71 04/04/20 03:00 98.0 F 47 L 16 132/69 96 04/04/20 00:20 18 04/03/20 19:25 97.6 F 69 18 148/74 96 04/03/20 15:00 97.5 F L 82 24 151/79 95 Intake and Output 04/03/20 04/04/20 04/04/20 22:59 06:59 14:59 Intake Total 1730 1300 Balance 1730 1300 Intake: IV 1250 Azithromycin 500 mg In 250 Sodium Chloride 0.9% 250 ml @ 250 mls/hr IVPB DAILY [facility] Rx#:[id number] Sodium Chloride 0.9% 1, 1000 000 ml @ 125 mls/hr IV . Q8H [facility] Rx#:[id number] Intake, IV Titration 50 Amount cefTRIAXone 1 gm In 50 Sodium Chloride 0.9% 50 ml @ 100 mls/hr IVPB Q24HR [facility] Rx#:[id number] Oral 1730 Other: Voiding Method Toilet # Voids 3 1 # Bowel Movements 1 Results 04/04/20 06:01 04/04/20 06:01 Cardiac Enzymes 04/04/20 Range/Units 06:01 AST 73 H (14-35) U/L Lactate Dehydrogenase 259 H (120-246) U/L CBC 04/04/20 Range/Units 06:01 WBC 13.1 H (3.8-10.6) k/uL RBC 3.74 L (4.30-5.90) m/uL Hgb 11.3 L (13.0-17.5) gm/dL Hct 34.5 L (39.0-53.0) % Plt Count 349 (150-450) k/uL Comprehensive Metabolic Panel 04/04/20 Range/Units 06:01 Sodium 140 (135-145) mmol/L Potassium 4.6 (3.5-5.5) mmol/L Chloride 111 H (96-109) mmol/L Carbon Dioxide 19.8 L (21.6-31.8) mmol/L BUN 33.0 H (9.0-27.0) mg/dL Creatinine 1.8 H (0.6-1.5) mg/dL Glucose 194 H (70-110) mg/dL Calcium 8.4 L (8.7-10.3) mg/dL AST 73 H (14-35) U/L ALT 75 H (10-49) U/L Alkaline Phosphatase 51 (41-126) U/L Total Protein 5.3 L (6.2-8.2) g/dL Albumin 3.50 L (3.80-4.90) g/dL Current Medications Generic Name Dose Route Start Last Admin Trade Name Freq PRN Reason Stop Dose Admin Acetaminophen 650 mg 04/02/20 14:21 04/02/20 15:13 Acetaminophen Tab 325 Mg Tab PO 650 mg Q6HR PRN Administration Mild Pain or Fever > 100.5 Ascorbic Acid 500 mg 04/03/20 09:00 04/04/20 08:39 Ascorbic Acid 500 Mg Tab PO 500 mg DAILY [facility] Administration Atorvastatin Calcium 20 mg 04/03/20 21:00 04/03/20 22:35 Atorvastatin 20 Mg Tab PO 20 mg HS [facility] Administration Dexamethasone 6 mg 04/03/20 09:00 04/04/20 08:39 Dexamethasone 2 Mg Tab PO 6 mg DAILY [facility] Administration Enoxaparin Sodium 30 mg 04/03/20 09:00 04/04/20 08:39 Enoxaparin 30 Mg/0.3 Ml Syringe SQ 30 mg DAILY [facility] Administration Sodium Chloride 1,000 mls @ 125 mls/hr 04/02/20 12:30 04/04/20 12:47 Saline 0.9% IV 125 mls/hr .Q8H [facility] Administration Azithromycin 500 mg/ Sodium 250 mls @ 250 mls/hr 04/03/20 09:00 04/04/20 08:40 Chloride IVPB 250 mls/hr DAILY [facility] Administration Ceftriaxone Sodium 1 gm/ 50 mls @ 100 mls/hr 04/03/20 09:00 04/04/20 08:05 Sodium Chloride IVPB 100 mls/hr Q24HR [facility] Administration Insulin Aspart 0 unit 04/03/20 12:30 04/04/20 12:47 Insulin Aspart (Novolog) 100 Unit/Ml Vial SQ 3 unit ACHS [facility] Administration Protocol Miscellaneous Information 1 each 04/03/20 12:31 Magnesium Replacement Protocol 1 Each Misc MISCELLANE DAILY PRN Per Protocol Protocol Naloxone HCl 0.2 mg 04/02/20 14:21 Naloxone 0.4 Mg/Ml 1 Ml Vial IV Q2M PRN Opioid Reversal Pantoprazole Sodium 40 mg 04/03/20 09:30 04/04/20 08:38 Pantoprazole 40 Mg/10 Ml Vial IVP 40 mg DAILY [facility] Administration Zinc Sulfate 220 mg 04/03/20 09:00 04/04/20 08:39 Zinc Sulfate 220 Mg Cap PO 220 mg DAILY [facility] Administration Intake and Output 04/03/20 04/04/20 04/04/20 22:59 06:59 14:59 Intake Total 1730 1300 Balance 1730 1300 Intake: IV 1250 Azithromycin 500 mg In 250 Sodium Chloride 0.9% 250 ml @ 250 mls/hr IVPB DAILY [facility] Rx#:[id number] Sodium Chloride 0.9% 1, 1000 000 ml @ 125 mls/hr IV . Q8H [facility] Rx#:[id number] Intake, IV Titration 50 Amount cefTRIAXone 1 gm In 50 Sodium Chloride 0.9% 50 ml @ 100 mls/hr IVPB Q24HR [facility] Rx#:[id number] Oral 1730 Other: Voiding Method Toilet # Voids 3 1 # Bowel Movements 1 04/04/20 06:01 04/04/20 06:01
--- NOTE | 2020-04-04 14:20 | P.PN ---
Subjective Progress Note Date: 04/04/20 This is a pleasant 64-year-old gentleman with past medical history of diabetes mellitus, gastroesophageal reflux disease, hyperlipidemia, hypertension, sleep apnea on CPAP, CAD, CABG, renal cell CA status post right radical nephrectomy, positive Covid test reported on 03/31 and multiple other medical issues, presented to the ER with complaints of nausea, vomiting ,increased weakness, status post falls 2, mild confusion, imbalance. Reports landing on his gluteal region, following Hitting his head, denies losing consciousness. Denies chest pain, palpitations or shortness of breath. Reports minimal cough. On admission, O2 sat 90% on room air, EKG reported sinus tachycardia. Currently sinus bradycardia via with heart rates down into the high 40s, repeat EKG ordered. Elevated CRP, LDH and pro-calcitonin. Ferritin 535, lactate dehydrogenase 794.T-max 99.1, WBC 15.2. Creatinine 2.53, baseline around 1.3- 1.5. Bicarb 19. UA reported rare bacteria negative for leukocytes negative for nitrates 2+ protein 1+ ketones and small blood .D-dimer 0.81. INR 1.1. Lactic acid on admission 2.2, down to 1.2 with IV fluid hydration. Chest x-ray reported patchy density left lower lobe possible underlying pneumonia. xray of Pelvis reported no acute fracture or dislocation. CT of abdomen and pelvis reported bilateral areas of consolidation involving lungs possible pneumonia, single left kidney with a punctuate nonobstructing left renal calculi noted, nonspecific abdomen-limited exam, attenuation along the right colon, spleen and liver most likely artifact rather than fluid. CT brain and spine reported no acute intracranial abnormality,, no acute fracture or malalignment of the C- spine, mild to moderate spondylitic change particularly at C4-C6 levels, upper lungs infiltrates. Abdominal ultrasound reported previous right-sided nephrectomy change otherwise unremarkable. Received IV fluid bolus, Rocephin, Decadron in the ER. 04/04/2020 continues on IV fluid hydration, antibiotics of Rocephin and Zithromax, Decadron, zinc, vitamin C. Using on CPAP machine at night. Maintaining O2 sats in the mid 90s on room air .Feeling better, denies cough, congestion or shortness of breath. Complains of diarrhea that patient now disclosing has had for 3 days prior to admission. Tested negative for C. difficile colitis. Remains bradycardic, asymptomatic, beta davon continues on hold. Afebrile, WBC trending down, 13.1. Renal function improving down to 1.8. Sodium, potassium, magnesium within normal limits. LDH, d-dimer improving. Fibrinogen 631. Objective - Vital Signs Vital signs: Vital Signs Temp 98 F 04/04/20 07:43 Pulse 51 L 04/04/20 07:43 Resp 16 04/04/20 07:43 BP 163/75 04/04/20 07:43 Pulse Ox 95 04/04/20 07:43 Intake & Output 04/03/20 04/04/20 04/04/20 18:59 06:59 18:59 Intake Total 2380 650 Balance 2380 650 Weight 112.945 kg Intake: IV 1300 Azithromycin 500 mg In 250 Sodium Chloride 0.9% 250 ml @ 250 mls/hr IVPB DAILY [facility] Rx#:[id number] Sodium Chloride 0.9% 1, 1000 000 ml @ 125 mls/hr IV . Q8H [facility] Rx#:[id number] cefTRIAXone 1 gm In 50 Sodium Chloride 0.9% 50 ml @ 100 mls/hr IVPB ONCE [facility] Rx#:[id number] Oral 1080 650 Other: Voiding Method Toilet # Voids 3 1 # Bowel Movements 1 - Exam PHYSICAL EXAM: VITAL SIGNS: As above GENERAL: Sitting up in bed, no acute distress HEENT: Conjunctivae normal. eyes normal. Oral mucosa moist NECK: No JVD. No thyroid enlargement. No LNs CARDIOVASCULAR: S1, S2 regular. No murmur RESPIRATION: Breath sounds diminished in the bases. No rhonchi, positive bib asilar crackles. ABDOMEN: Soft, nontender . No guarding. no masses palpable. Bowel sounds heard. LEGS: No edema. no swelling PSYCHIATRY: Alert and oriented X3, mood and affect normal. NERVOUS SYSTEM: Cranial N 2-12 grossly normal. Moves all 4 limbs. Diffuse weakness, No focal deficits. Strength and sensation grossly intact.. Skin: Warm and dry, no rash. - Labs CBC & Chem 7: 04/04/20 06:01 04/04/20 06:01 Labs: Abnormal Lab Results - Last 24 Hours (Table) 04/03/20 04/03/20 04/03/20 Range/Units 09:20 09:20 09:58 WBC (3.8-10.6) k/uL RBC (4.30-5.90) m/uL Hgb (13.0-17.5) gm/dL Hct (39.0-53.0) % Neutrophils # (1.3-7.7) k/uL Lymphocytes # (1.0-4.8) k/uL Fibrinogen (200-500) mg/dL D-Dimer 0.81 H (<0.60) mg/L FEU POC Glucose (mg/dL) 159 H (75-99) mg/dL Procalcitonin 1.96 H (0.02-0.09) ng/mL 04/03/20 04/03/20 04/03/20 Range/Units 12:03 16:46 20:40 WBC (3.8-10.6) k/uL RBC (4.30-5.90) m/uL Hgb (13.0-17.5) gm/dL Hct (39.0-53.0) % Neutrophils # (1.3-7.7) k/uL Lymphocytes # (1.0-4.8) k/uL Fibrinogen (200-500) mg/dL D-Dimer (<0.60) mg/L FEU POC Glucose (mg/dL) 165 H 228 H 268 H (75-99) mg/dL Procalcitonin (0.02-0.09) ng/mL 04/03/20 04/04/20 04/04/20 Range/Units 22:22 06:01 06:01 WBC 13.1 H (3.8-10.6) k/uL RBC 3.74 L (4.30-5.90) m/uL Hgb 11.3 L (13.0-17.5) gm/dL Hct 34.5 L (39.0-53.0) % Neutrophils # 11.5 H (1.3-7.7) k/uL Lymphocytes # 0.7 L (1.0-4.8) k/uL Fibrinogen 631 H (200-500) mg/dL D-Dimer (<0.60) mg/L FEU POC Glucose (mg/dL) 273 H (75-99) mg/dL Procalcitonin (0.02-0.09) ng/mL 04/04/20 Range/Units 07:24 WBC (3.8-10.6) k/uL RBC (4.30-5.90) m/uL Hgb (13.0-17.5) gm/dL Hct (39.0-53.0) % Neutrophils # (1.3-7.7) k/uL Lymphocytes # (1.0-4.8) k/uL Fibrinogen (200-500) mg/dL D-Dimer (<0.60) mg/L FEU POC Glucose (mg/dL) 191 H (75-99) mg/dL Procalcitonin (0.02-0.09) ng/mL Microbiology - Last 24 Hours (Table) 04/02/20 11:46 Blood Culture - Preliminary Blood No Growth after 24 hours Assessment and Plan Assessment: Acute Covid 19 pneumonitis, possible pneumonia ,positive Covid test on 03/31/2020. Generalized weakness, status post falls secondary to the above Acute renal failure in a patient with a single kidney ,secondary to dehydration, infection, possible ATN Proteinuria. Chronic renal failure, stage III History of renal CA with right nephrectomy Recent cystoscopy, lithotripsy and stone basketing,history of urolithiasis. CT reported non-obstructive left renal calculi. Diabetes mellitus Gastroesophageal reflux disease Hypertension Hyperlipidemia CAD or history of CABG Asymptomatic bradycardia Obstructive sleep apnea, on CPAP Obesity, BMI 34.7, history of bariatric surgery Plan: Continue on current medication regime ,monitoring and symptomatic treatment. Continue on IV fluid hydration, antibiotics, Decadron, zinc,vitamin C, Lovenox. Cardiology recommendations noted and appreciated.Close monitoring of renal function, inflammatory markers. PT/OT. The impression and plan of care has been dictated as directed. : I performed a history and examination of this patient, discussed the same with the dictator. I agree with the dictator's note ,documented as a scribe. Any additional findings or plans will be noted.
--- NOTE | 2020-04-04 15:17 | P.PN ---
Subjective Progress Note Date: 04/04/20 Principal diagnosis: CoVID 19 infection The patient is seen today in 04/04/2020 in follow-up. He is a very pleasant 64-year-old gentleman with a known history of diabetes mellitus, hypertension, hyperlipidemia, GERD, sleep apnea on CPAP therapy, renal cancer status post nephrectomy, coronary disease status post coronary bypass grafting, morbid obesity status post bariatric surgery, lifelong nonsmoker. He presented here on 04/02/2020 with complaints of nausea vomiting and diarrhea. He was tested positive for cocaine 19 on 03/31/2020. Presently he is sitting up in a chair at the bedside. Awake and alert in no acute distress. Feeling a bit stronger today compared to yesterday. Denies any shortness of breath, cough or congestion. He is maintaining O2 saturations in the mid 90s on room air. He's been afebrile. White count 13.1. Hemoglobin 11.3. Fibrinogen 631. D-dimer 0.55. Sodium 140. Potassium 4.6. Creatinine 1.8. LDH 259. C-reactive protein 10.8. He is on vitamin C, Decadron, zinc. Antibiotics in the form of ceftriaxone and azithromycin. Objective - Vital Signs Vital signs: Vital Signs Temp 98 F 04/04/20 07:43 Pulse 51 L 04/04/20 07:43 Resp 16 04/04/20 07:43 BP 163/75 04/04/20 07:43 Pulse Ox 95 04/04/20 07:43 Intake & Output 04/03/20 04/04/20 04/04/20 18:59 06:59 18:59 Intake Total 2380 650 1300 Balance 2380 650 1300 Weight 112.945 kg Intake: IV 1300 1250 Azithromycin 500 mg In 250 250 Sodium Chloride 0.9% 250 ml @ 250 mls/hr IVPB DAILY [facility] Rx#:[id number] Sodium Chloride 0.9% 1, 1000 1000 000 ml @ 125 mls/hr IV . Q8H [facility] Rx#:[id number] cefTRIAXone 1 gm In 50 Sodium Chloride 0.9% 50 ml @ 100 mls/hr IVPB ONCE [facility] Rx#:[id number] Intake, IV Titration 50 Amount cefTRIAXone 1 gm In 50 Sodium Chloride 0.9% 50 ml @ 100 mls/hr IVPB Q24HR [facility] Rx#:[id number] Oral 1080 650 Other: Voiding Method Toilet # Voids 3 1 # Bowel Movements 1 - Exam GENERAL EXAM: Alert, pleasant 64-year-old gentleman, on room air, comfortable in no apparent distress. HEAD: Normocephalic. EYES: Normal reaction of pupils, equal size. NOSE: Clear with pink turbinates. THROAT: No erythema or exudates. NECK: No masses, no JVD. CHEST: No chest wall deformity. LUNGS: Equal air entry with no crackles, wheeze, rhonchi or dullness. CVS: S1 and S2 normal with no audible murmur, regular rhythm. ABDOMEN: No hepatosplenomegaly, normal bowel sounds, no guarding or rigidity. SPINE: No scoliosis or deformity SKIN: No rashes CENTRAL NERVOUS SYSTEM: No focal deficits, tone is normal in all 4 extremities. EXTREMITIES: There is no peripheral edema. No clubbing, no cyanosis. Peripheral pulses are intact. - Labs CBC & Chem 7: 04/04/20 06:01 04/04/20 06:01 Labs: Abnormal Lab Results - Last 24 Hours (Table) 04/03/20 04/03/20 04/03/20 Range/Units 09:20 16:46 20:40 WBC (3.8-10.6) k/uL RBC (4.30-5.90) m/uL Hgb (13.0-17.5) gm/dL Hct (39.0-53.0) % Neutrophils # (1.3-7.7) k/uL Lymphocytes # (1.0-4.8) k/uL Fibrinogen (200-500) mg/dL Chloride (96-109) mmol/L Carbon Dioxide (21.6-31.8) mmol/L BUN (9.0-27.0) mg/dL Creatinine (0.6-1.5) mg/dL Est GFR (CKD-EPI)AfAm (60.0-200.0) Est GFR (CKD-EPI)NonAf (60.0-200.0) Glucose (70-110) mg/dL POC Glucose (mg/dL) 228 H 268 H (75-99) mg/dL Calcium (8.7-10.3) mg/dL Ferritin (22.0-322.0) ng/mL AST (14-35) U/L ALT (10-49) U/L Lactate Dehydrogenase (120-246) U/L C-Reactive Protein (0.0-0.8) mg/dL Total Protein (6.2-8.2) g/dL Albumin (3.80-4.90) g/dL Procalcitonin 1.96 H (0.02-0.09) ng/mL 04/03/20 04/04/20 04/04/20 Range/Units 22:22 06:01 06:01 WBC 13.1 H (3.8-10.6) k/uL RBC 3.74 L (4.30-5.90) m/uL Hgb 11.3 L (13.0-17.5) gm/dL Hct 34.5 L (39.0-53.0) % Neutrophils # 11.5 H (1.3-7.7) k/uL Lymphocytes # 0.7 L (1.0-4.8) k/uL Fibrinogen 631 H (200-500) mg/dL Chloride (96-109) mmol/L Carbon Dioxide (21.6-31.8) mmol/L BUN (9.0-27.0) mg/dL Creatinine (0.6-1.5) mg/dL Est GFR (CKD-EPI)AfAm (60.0-200.0) Est GFR (CKD-EPI)NonAf (60.0-200.0) Glucose (70-110) mg/dL POC Glucose (mg/dL) 273 H (75-99) mg/dL Calcium (8.7-10.3) mg/dL Ferritin (22.0-322.0) ng/mL AST (14-35) U/L ALT (10-49) U/L Lactate Dehydrogenase (120-246) U/L C-Reactive Protein (0.0-0.8) mg/dL Total Protein (6.2-8.2) g/dL Albumin (3.80-4.90) g/dL Procalcitonin (0.02-0.09) ng/mL 04/04/20 04/04/20 04/04/20 Range/Units 06:01 07:24 12:00 WBC (3.8-10.6) k/uL RBC (4.30-5.90) m/uL Hgb (13.0-17.5) gm/dL Hct (39.0-53.0) % Neutrophils # (1.3-7.7) k/uL Lymphocytes # (1.0-4.8) k/uL Fibrinogen (200-500) mg/dL Chloride 111 H (96-109) mmol/L Carbon Dioxide 19.8 L (21.6-31.8) mmol/L BUN 33.0 H (9.0-27.0) mg/dL Creatinine 1.8 H (0.6-1.5) mg/dL Est GFR (CKD-EPI)AfAm 44.8 L (60.0-200.0) Est GFR (CKD-EPI)NonAf 38.6 L (60.0-200.0) Glucose 194 H (70-110) mg/dL POC Glucose (mg/dL) 191 H 211 H (75-99) mg/dL Calcium 8.4 L (8.7-10.3) mg/dL Ferritin 606.4 H (22.0-322.0) ng/mL AST 73 H (14-35) U/L ALT 75 H (10-49) U/L Lactate Dehydrogenase 259 H (120-246) U/L C-Reactive Protein 10.5 H (0.0-0.8) mg/dL Total Protein 5.3 L (6.2-8.2) g/dL Albumin 3.50 L (3.80-4.90) g/dL Procalcitonin (0.02-0.09) ng/mL Microbiology - Last 24 Hours (Table) 04/02/20 11:46 Blood Culture - Preliminary Blood No Growth after 48 hours Assessment and Plan Assessment: #1. Acute COVID 19 pneumonitis, chest x-ray shows diffuse bilateral infiltrates, although patient denies significant pulmonary complaints, he is on room air, no shortness of breath at this time, tested positive on an outpatient basis on 03/31/2020 #2. Nausea, vomiting, diarrhea related to acute Covid 19 infection, CT of the abdomen and pelvis with contrast ruled out possibility of obstructive renal stone, unremarkable CT of the abdomen and pelvis #3. A fall at home, pelvis x-ray was negative, CT of the abdomen and cervical spine was negative #4. Acute kidney injury #5. Chronic kidney disease, unspecified #6. History of right renal carcinoma, with history of right nephrectomy in September 2018 #7. History of urolithiasis, patient had a cystoscopy with left ureteral Ronnie be and laser lithotripsy and stone basketing on 12/26/2019, and CT of the abdomen and pelvis showed punctate nonobstructive left renal calculi #8. Hypertension #9. Hyperlipidemia #10. Diabetes mellitus type 2 #11. Sleep apnea on CPAP therapy #12. Nonsmoker #13. Morbid obesity with previous bariatric surgery #14. Coronary artery disease with previous bypass grafting Plan: The patient was seen and evaluated by Dr. Lao Remains stable from the pulmonary standpoint Continue the current treatment plan We'll continue to follow I, the cosigning physician, performed a history & physical examination of the patient. Lungs sounds are clear. Maintaining good O2 saturations in the 90s on room air. I discussed the assessment and plan of care with my nurse practitioner, Araceli Blackwell. I attest to the above note as dictated by her.
[2020-04-04 16:51] LABS: Glucose,Whole Blood 280 mg/dL (75-99)
[2020-04-04 20:25] LABS: Glucose,Whole Blood 325 mg/dL (75-99)
[2020-04-04] MEDS: ATORVASTATIN 20 MG TAB PO SCH (20:38)
[2020-04-05] MEDS: SODIUM CHLORIDE 0.9% 1,000 ML IV SCH (04:07)
[2020-04-05 06:59] LABS: Basophils % (A) 0 %; Eosinophils % (A) 0 %; HCT 34.6 % (39.0-53.0); HGB 11.5 gm/dL (13.0-17.5); Lymphocytes # (A) 0.7 k/uL (1.0-4.8); Lymphocytes % (A) 6 %; MCH 30.7 pg (25.0-35.0); MCHC 33.3 g/dL (31.0-37.0); MCV 92.1 fL (80.0-100.0); Mean Platelet Volume 7.5; Monocytes # (A) 0.6 k/uL (0-1.0); Monocytes % (A) 5 %; Neutrophils # (A) 10.2 k/uL (1.3-7.7); Neutrophils % (A) 86 %; Platelet Count 374 k/uL (150-450); RBC 3.75 m/uL (4.30-5.90); RDW 12.8 % (11.5-15.5); WBC 11.8 k/uL (3.8-10.6)
[2020-04-05 07:05] LABS: Glucose,Whole Blood 205 mg/dL (75-99)
[2020-04-05] MEDS: ENOXAPARIN 30 MG/0.3 ML SYRINGE SQ SCH (07:33)
[2020-04-05] MEDS: INSULIN ASPART (NovoLOG) 100 UNIT/ML VIAL SQ SCH ×2 (07:33→12:11)
[2020-04-05] MEDS: ZINC SULFATE 220 MG CAP PO SCH (07:35)
[2020-04-05] MEDS: dexAMETHasone 2 MG TAB PO SCH (07:35)
[2020-04-05] MEDS: ASCORBIC ACID 500 MG TAB PO SCH (07:35)
[2020-04-05 07:42] LABS: D-Dimer 0.56 mg/L FEU (<0.60)
[2020-04-05 07:57] VITALS: BP 174/74; PULSE 53; RESP 17; TEMP 97.6
[2020-04-05] MEDS ORDERED: PANTOPRAZOLE 40 MG TABLET PO SCH (09:00)
[2020-04-05] MEDS: AZITHROMYCIN 500 MG in SODIUM CHLORIDE 0.9% 250 ML IVPB SCH (09:07)
[2020-04-05 09:42] LABS: African American GFR (CKD) 55.8 (60.0-200.0); Albumin 3.5 g/dL (3.80-4.90); Albumin/Globulin Ratio 1.94 (1.60-3.17); Anion Gap 8.4 mmol/L (4.00-12.00); C Reactive Protein 4.8 mg/dL (0.0-0.8); Calcium 8.3 mg/dL (8.7-10.3); Carbon Dioxide 18.6 mmol/L (21.6-31.8); Globulin 1.8 g/dL (1.6-3.3); Non-African American GFR(CKD) 48.2 (60.0-200.0); Potassium 4.7 mmol/L (3.5-5.5); Total Bilirubin 0.3 mg/dL (0.3-1.2); Total Protein 5.3 g/dL (6.2-8.2)
[2020-04-05 10:06] LABS: Ferritin 396.8 ng/mL (22.0-322.0)
[2020-04-05] MEDS ORDERED: CHOLECALCIFEROL 1,000 UNIT TAB PO SCH (10:30)
--- NOTE | 2020-04-05 10:33 | P.DS ---
Providers Date of admission: 04/02/20 14:03 Expected date of discharge: 04/05/20 Attending physician: Jorge Urrutia Consults: 04/02/20 14:03 Consult Physician Urgent Consulting Provider: Darío Lao Consult Reason/Comments: dyspnea Do you want consulting provider notified?: Yes 04/03/20 10:29 Consult Physician Stat Consulting Provider: Bhavik Calderón Consult Reason/Comments: bradycardia Do you want consulting provider notified?: Yes 04/03/20 12:26 Consult Physician Urgent Consulting Provider: Lise Wilson Consult Reason/Comments: Acute Renal failure, history of right radical nephrectomy Do you want consulting provider notified?: Yes Primary care physician: Jorge Urruita [facility] Course: Final Diagnoses: Sepsis present on admission, secondary to Acute Covid 19 pneumonitis, possible pneumonia ,positive Covid test on 03/31/2020. Generalized weakness, status post falls secondary to the above Acute renal failure in a patient with a single kidney ,secondary to dehydration, infection, possible ATN Proteinuria. Chronic renal failure, stage III History of renal CA with right nephrectomy Recent cystoscopy, lithotripsy and stone basketing,history of urolithiasis. CT reported non-obstructive left renal calculi. Diabetes mellitus Gastroesophageal reflux disease Hypertension Hyperlipidemia CAD or history of CABG Asymptomatic bradycardia Obstructive sleep apnea, on CPAP Obesity, BMI 34.7, history of bariatric surgery Hospital course:This is a pleasant 64-year-old gentleman with past medical history of diabetes mellitus, gastroesophageal reflux disease, hyperlipidemia, hypertension, sleep apnea on CPAP, CAD, CABG, renal cell CA status post right radical nephrectomy, positive Covid test reported on 03/31 and multiple other medical issues, presented to the ER with complaints of nausea, vomiting ,increased weakness, status post falls 2, mild confusion, imbalance. Reports landing on his gluteal region, following Hitting his head, denies losing consciousness. Denies chest pain, palpitations or shortness of breath. Reports minimal cough. On admission, O2 sat 90% on room air, EKG reported sinus tachycardia. Currently sinus bradycardia via with heart rates down into the high 40s, repeat EKG ordered. Elevated CRP, LDH and pro-calcitonin. Ferritin 535, lactate dehydrogenase 794.T-max 99.1, WBC 15.2. Creatinine 2.53, baseline around 1.3-1.5. Bicarb 19. UA reported rare bacteria negative for leukocytes negative for nitrates 2+ protein 1+ ketones and small blood .D-dimer 0.81. INR 1.1. Lactic acid on admission 2.2, down to 1.2 with IV fluid hydration. Chest x-ray reported patchy density left lower lobe possible underlying pneumonia. xray of Pelvis reported no acute fracture or dislocation. CT of abdomen and pelvis reported bilateral areas of consolidation involving lungs possible pneumonia, single left kidney with a punctuate nonobstructing left renal calculi noted, nonspecific abdomen-limited exam, attenuation along the right colon, spleen and liver most likely artifact rather than fluid. CT brain and spine reported no acute intracranial abnormality,, no acute fracture or malalignment of the C-spine, mild to moderate spondylitic change particularly at C4-C6 levels, upper lungs infiltrates. Abdominal ultrasound reported previous right- sided nephrectomy change otherwise unremarkable. Received IV fluid bolus, Rocephin, Decadron in the ER. 04/04/2020 continues on IV fluid hydration, antibiotics of Rocephin and Zithromax, Decadron, zinc, vitamin C. Using on CPAP machine at night. Maintaining O2 sats in the mid 90s on room air .Feeling better, denies cough, congestion or shortness of breath. Complains of diarrhea that patient now disclosing has had for 3 days prior to admission. Tested negative for C. difficile colitis. Remains bradycardic, asymptomatic, beta davon continues on hold. Afebrile, WBC trending down, 13.1. Renal function improving down to 1.8. Sodium, potassium, magnesium within normal limits. LDH, d-dimer improving. Fibrinogen 631. Diarrhea has subsided. Significant clinical improvement. Cleared by nephrology for discharge. Patient will be discharged home today in a stable condition with guarded prognosis pending DC antibiotics/f DC recommendations and clearance from pulmonary. The impression and plan of care has been dictated as directed. : I performed a history and examination of this patient, discussed the same with the dictator. I agree with the dictator's note ,documented as a scribe. Any additional findings or plans will be noted. Patient Condition at Discharge: Stable Plan - Discharge Summary Discharge Rx Participant: No New Discharge Prescriptions: New dexAMETHasone [Hexadrol] See Taper PO DAILY #33 tab Zinc Sulfate [Orazinc] 220 mg PO DAILY #10 cap Ascorbic Acid [Vitamin C] 2,000 mg PO DAILY #28 tab Cholecalciferol [Vitamin D3 (25 Mcg = 1000 Iu)] 2,000 unit PO DAILY #14 tab Continue metFORMIN HCL 1,000 mg PO BID Simvastatin [Zocor] 40 mg PO HS Omeprazole 20 mg PO HS lisinopriL [Zestril] 2.5 mg PO HS Ondansetron Odt [Zofran ODT] 4 mg PO Q8HR PRN 3 Days #9 tab PRN Reason: Nausea And Vomiting Azithromycin [Zithromax Z-pack (6 tabs)] See Taper PO DIRECTED Discontinued Metoprolol Succinate [Toprol XL] 25 mg PO DAILY Sildenafil Citrate 100 mg PO DAILY PRN PRN Reason: E.D. Discharge Medication List Omeprazole 20 mg PO HS 06/16/18 [History] Simvastatin [Zocor] 40 mg PO HS 06/16/18 [History] lisinopriL [Zestril] 2.5 mg PO HS 06/16/18 [History] metFORMIN HCL 1,000 mg PO BID 06/16/18 [History] Ondansetron Odt [Zofran ODT] 4 mg PO Q8HR PRN 3 Days #9 tab 04/01/20 [Rx] Azithromycin [Zithromax Z-pack (6 tabs)] See Taper PO DIRECTED 04/02/20 [History] Ascorbic Acid [Vitamin C] 2,000 mg PO DAILY #28 tab 04/05/20 [Rx] Cholecalciferol [Vitamin D3 (25 Mcg = 1000 Iu)] 2,000 unit PO DAILY #14 tab 04/05/20 [Rx] Zinc Sulfate [Orazinc] 220 mg PO DAILY #10 cap 04/05/20 [Rx] dexAMETHasone [Hexadrol] See Taper PO DAILY #33 tab 04/05/20 [Rx] Follow up Appointment(s)/Referral(s): Lise Wilson MD [STAFF PHYSICIAN] - 2 Weeks Alex Lemon MD [STAFF PHYSICIAN] - 2 Weeks [facility] [NON-STAFF] - (Call to inquire about a shower chair. ) Jorge Urrutia DO [Primary Care Provider] - 3 Days [facility] [NON-STAFF] - (Call to inquire about a shower chair. ) Ambulatory/Diagnostic Orders: Complete Blood Count w/diff [LAB.AMB] Time Frame: 3 Days, Location: None Selected Activity/Diet/Wound Care/Special Instructions: Final DC recommendations /antibiotics , clearance, follow-up appointment as per pulmonary. Beta davon remains on hold-reevaluate at follow-up with cardiology. Complete: Covid quarantine
[2020-04-05 11:28] LABS: Glucose,Whole Blood 192 mg/dL (75-99)
--- NOTE | 2020-04-05 12:52 | PN ---
PROGRESS NOTE Patient is seen for followup for acute kidney injury on top of chronic kidney disease. He was admitted to the hospital with positive Covid-19 PCR. The patient is status post treatment. His serum creatinine had peaked to 2.5 mg/dL and is currently down to 1.5. The patient has a solitary kidney with history of right nephrectomy previously. PHYSICAL EXAMINATION: On examination today, patient is comfortable. Blood pressure is elevated 174/74, heart rate 53 per minute. He is afebrile. Examination shows no evidence of edema bilateral lower extremities. Abdomen is soft, nontender. [employer] exam grossly intact. LAB: Show sodium 141, potassium 4.7, CO2 is 18.6, BUN 27, creatinine 1.5. ASSESSMENT: 1. Acute kidney injury, prerenal, currently improved. 2. Chronic kidney disease with solitary kidney with history of right nephrectomy. Baseline creatinine about 1.3-1.5 mg/dL as of October and November of 2019. There is proteinuria. Patient likely has underlying diabetic nephropathy. 3. History of right nephrectomy for renal cell cancer. 4. Covid-19 infection with pneumonia, maintained on steroids, status post Azithromycin and zinc. Respiratory status is very stable at this point. 5. Mild metabolic acidosis associated with renal failure, currently improved. PLAN: Patient can be discharged and follow up as outpatient for CKD. Continue to avoid use of NSAIDs. MMODL / IJN: [id number] /
--- NOTE | 2020-04-05 15:46 | PN ---
PROGRESS NOTE HISTORY: 64-year-old gentleman with history of acute Covid-19 pneumonia. The patient is doing relatively well. He denies any significant pulmonary complaints. He is currently on room air. The patient may be discharged home today. In addition, the patient had nausea, vomiting, diarrhea, all related to Covid-19 infection. Currently, the complaints have resolved. PHYSICAL EXAMINATION: VITAL SIGNS: Current vital signs are stable. Temperature 97.6, heart rate 53, respiratory rate 17, blood pressure 174/74 mean 107, room air saturation 97%. GENERAL: Appears in no acute distress. HEENT: Examination is grossly unremarkable. NECK: Supple. Full range of motion. No adenopathy. Neck veins are flat. CARDIOVASCULAR: Examination reveals regular rhythm and rate. Heart rate 75. S1, S2 normal. LUNGS: Clear. Breath sounds equal. ABDOMEN: Soft. Bowel sounds are heard. EXTREMITIES are intact. No cyanosis, clubbing, or edema. SKIN: Without rash. NEUROLOGIC: Examination is nonfocal. LABORATORY DATA: White count 11.8, hemoglobin 11.5, hematocrit 34.6, platelet count 374,000. D-dimer 0.56. Sodium and potassium normal. Chloride 114, CO2 18. Anion gap is 8.4, BUN and creatinine were 27 and 1.5. The rest of the labs look pretty good. Microbiology is currently negative. No x-rays to report. Medications are reviewed. ASSESSMENT: 1. Covid-19 pneumonia, much improved, without current pulmonary complaints. 2. Acute Covid-19 gastrointestinal symptoms including nausea, vomiting, diarrhea, all improved. 3. Status post fall at home, pelvic x-rays were negative. 4. Acute kidney injury. 5. Chronic kidney disease. 6. History of right renal cell carcinoma, status post right nephrectomy. 7. History of urolithiasis, status post cystoscopy with left ureteral stent. 8. Hypertension. 9. Hyperlipidemia. 10.Diabetes mellitus. 11.Sleep apnea, currently maintained on CPAP. 12.Nonsmoker. 13.Morbid obesity. 14.Coronary artery disease with previous bypass grafting. PLAN: The patient is doing well. We will continue to follow. He may be discharged home today. No additional recommendations are made. Prognosis is guarded. MMODL / IJN: [id number] / [facility]
== END 2020-04-05 13:41 | disposition home or self-care (01) | DRG 871 ==
LOC: EC 10:29 → 4SSUR 14:03
PROVIDERS: ADMIT Family Medicine; ATTEND Family Medicine
PROC: 5A09357 Assistance with Respiratory Ventilation, Less than 24 Consecutive Hours, Continuous Positive Airway Pressure (ICD-10-PCS; principal; 2020-04-02)
DX: A41.89 Other specified sepsis (principal); U07.1 COVID-19; N17.0 Acute kidney failure with tubular necrosis; J12.89 Other viral pneumonia; N18.4 Chronic kidney disease, stage 4 (severe); E87.2 Acidosis; K21.9 Gastro-esophageal reflux disease without esophagitis; I25.10 Atherosclerotic heart disease of native coronary artery without angina pectoris; G47.33 Obstructive sleep apnea (adult) (pediatric); I10 Essential (primary) hypertension; E78.5 Hyperlipidemia, unspecified; E66.01 Morbid (severe) obesity due to excess calories; Z96.653 Presence of artificial knee joint, bilateral; I12.9 Hypertensive chronic kidney disease with stage 1 through stage 4 chronic kidney disease, or unspecified chronic kidney disease; E11.22 Type 2 diabetes mellitus with diabetic chronic kidney disease; E86.0 Dehydration; N20.0 Calculus of kidney; E86.1 Hypovolemia; Z79.52 Long term (current) use of systemic steroids; Z79.82 Long term (current) use of aspirin; Z79.84 Long term (current) use of oral hypoglycemic drugs; Z79.899 Other long term (current) drug therapy; Z88.8 Allergy status to other drugs, medicaments and biological substances; Z95.1 Presence of aortocoronary bypass graft; Z98.84 Bariatric surgery status; Z87.442 Personal history of urinary calculi; Z90.5 Acquired absence of kidney; Z82.5 Family history of asthma and other chronic lower respiratory diseases; Z68.34 Body mass index [BMI] 34.0-34.9, adult; Z82.49 Family history of ischemic heart disease and other diseases of the circulatory system; Z85.528 Personal history of other malignant neoplasm of kidney; Z83.3 Family history of diabetes mellitus
CPT/HCPCS: 36415; 70450; 71045; 72125; 72170; 74176; 76700; 80053; 81001; 82550; 82728; 83605; 83615; 83735; 84145; 84484; 85025; 85379; 85384; 85610; 85730; 86140; 87040; 87324; 93005; 94640; 96361; 96365; 99285

== ENCOUNTER → 2020-10-23 | Outpatient (CLI) | payer MEDICARE, BC ==
--- NOTE | 2020-10-23 09:12 | XR ---
EXAMINATION TYPE: XR chest 2V DATE OF EXAM: 10/23/2020 COMPARISON: 04/02/2020 HISTORY: Renal cancer 6 month follow-up TECHNIQUE: Frontal and lateral views of the chest are obtained. FINDINGS: Status post median sternotomy. Heart size is stable. No focal consolidation, pneumothorax o r pleural effusion. Mild hyperaeration of lungs with flattening of the diaphragms suggestive of COPD. Degenerative changes of the thoracic spine. IMPRESSION: 1. Status post median sternotomy. No acute pulmonary disease. COPD.
[2020-10-24 00:12] LABS: African American GFR (CKD) 51.3 (60.0-200.0); Albumin 4.3 g/dL (3.80-4.90); Albumin/Globulin Ratio 2.05 (1.60-3.17); Anion Gap 9.7 mmol/L (4.00-12.00); Calcium 10.5 mg/dL (8.7-10.3); Carbon Dioxide 24.3 mmol/L (21.6-31.8); Globulin 2.1 g/dL (1.6-3.3); Non-African American GFR(CKD) 44.2 (60.0-200.0); Potassium 4.9 mmol/L (3.5-5.5); Total Bilirubin 0.5 mg/dL (0.2-1.2); Total Protein 6.4 g/dL (6.2-8.2)
== END | disposition home or self-care (01) ==
LOC: LABWHC1 08:27
PROVIDERS: ATTEND Urology
DX: C64.1 Malignant neoplasm of right kidney, except renal pelvis (principal); D49.4 Neoplasm of unspecified behavior of bladder; J44.9 Chronic obstructive pulmonary disease, unspecified
CPT/HCPCS: 36415; 71046; 80053

== ENCOUNTER → 2021-10-27 | Outpatient (CLI) | payer MEDICARE, BC ==
[2021-10-27 18:17] LABS: African American GFR (CKD) 50.9 (60.0-200.0); Albumin 4.5 g/dL (3.8-4.9); Albumin/Globulin Ratio 2.2 (1.60-3.17); Anion Gap 9.4 mmol/L (10.00-18.00); BUN/Creat Ratio 6.94 Ratio (12.00-20.00); Blood Urea Nitrogen 11.1 mg/dL (9.0-27.0); Calcium 10.2 mg/dL (8.7-10.3); Carbon Dioxide 25.5 mmol/L (20.0-27.5); Non-African American GFR(CKD) 43.9 (60.0-200.0); Potassium 5.2 mmol/L (3.5-5.5); Total Bilirubin 0.4 mg/dL (0.30-1.20); Total Protein 6.5 g/dL (6.2-8.2)
--- NOTE | 2021-10-27 19:04 | XR ---
EXAMINATION TYPE: XR chest 2V DATE OF EXAM: 10/27/2021 COMPARISON: 10/23/2020 HISTORY: 66-year-old male C64-1, follow-up renal cancer. TECHNIQUE: Frontal and lateral views FINDINGS: Heart upper limits of normal in size. Median sternotomy wires and post-CABG clips in the mediastinum. Pulmonary vasculature and aorta. No consolidation or pleural effusion. Mild degenerative disc diseas e mid to lower thoracic spine. IMPRESSION: Post CABG changes. No acute process seen.
== END | disposition home or self-care (01) ==
LOC: LABWHC1 11:04
PROVIDERS: ATTEND Urology
DX: C64.1 Malignant neoplasm of right kidney, except renal pelvis (principal)
CPT/HCPCS: 36415; 71046; 80053

== ENCOUNTER → 2021-11-27 | Outpatient (CLI) | payer MEDICARE, BC ==
--- NOTE | 2021-11-27 22:37 | MR ---
EXAMINATION TYPE: MR shoulder LT wo con DATE OF EXAM: 11/27/2021 COMPARISON: Outside left shoulder x-ray November 07, 2021 HISTORY: No prior, left shoulder pain since 04/13 TECHNIQUE: Multiplanar, multisequence imaging of the left shoulder is performed without contrast. FINDINGS: Rotator Cuff: Focal tear at articular surface involving the posterior fibers of the distal infraspina tus tendon and anterior fibers of the distal infraspinatus tendon measuring 12 mm AP diameter sagitta l image 10. Subscapularis tendon is intact. Rotator cuff muscle bulk is preserved. Acromioclavicular Joint: Moderate narrowing with mild capsular hypertrophy. No significant spurring. Glenohumeral Joint: Small size joint effusion with moderate narrowing. No significant spurring. Labrum: Increased signal superior labrum consistent with degenerative tearing is present study. Biceps Tendon: The long head of biceps is in normal location within bicipital groove. Increased centr al linear signal proximal extracapsular portion image 8 corresponds to axial image 12. Bone marrow signal: Heterogeneity consistent with red marrow reconversion. No suspicious edema. Other: No additional significant abnormality is appreciated. IMPRESSION: 1. Focal articular surface tear involving portions of the distal supraspinatus and infraspinatus tend ons. 2. Moderate degenerative changes as detailed above. 3. Bicipital tendinopathy is present.
== END | disposition home or self-care (01) ==
LOC: RADMRIMAIN 12:53
PROVIDERS: ATTEND Orthopaedic Surgery
DX: M19.012 Primary osteoarthritis, left shoulder (principal); M75.112 Incomplete rotator cuff tear or rupture of left shoulder, not specified as traumatic

== ENCOUNTER 2022-01-21 05:44 | Day surgery (SDC) | payer MEDICARE, BC ==
[2022-01-20 12:30] VITALS: BMI 39.0
--- NOTE | 2022-01-21 01:19 | HP ---
HISTORY AND PHYSICAL DATE OF SURGERY: 01/21/2022. HISTORY OF PRESENT ILLNESS: Abraham Medeiros is a 66-year-old gentleman, who is seen with progressive left shoulder pain. We discussed options for treatment. The patient elected to proceed with left shoulder arthroscopy. Consent was obtained. PAST MEDICAL HISTORY: Hypertension, [id number] diabetes, hyperlipidemia, and gastroesophageal reflux disease. PAST SURGICAL HISTORY: Left total knee arthroplasty and right total knee arthroplasty. DAILY MEDICATIONS: 1. Metformin. 2. Lisinopril. 3. Metoprolol. 4. Omeprazole. 5. Simvastatin. ALLERGIES: None. SOCIAL HISTORY: Denies tobacco use. PHYSICAL EVALUATION OF THE LEFT KNEE: Flexion is 90 degrees, abduction is 70 degrees, external rotation is 20 degrees with pain and weakness. Tenderness along the anterolateral acromion and rotator cuff insertion. Impingement is positive at 70. Cross-body adduction sign is positive. Drop-arm sign is positive. Distal neurovascular exam is intact. RADIOGRAPHS: Radiographs revealed a type 2 acromion, evidence for severe acromioclavicular joint osteoarthritis and cystic changes of the tuberosity. MRI of left shoulder revealed rotator cuff tear and acromioclavicular joint osteoarthritis. IMPRESSION: 1. Left shoulder impingement with rotator cuff tear. 2. Left shoulder acromioclavicular joint osteoarthritis. 3. Hypertension. 4. Hyperlipidemia. 5. Gastroesophageal reflux disease. PLAN: Left shoulder arthroscopy with subacromial decompression, arthroscopic rotator cuff repair, Jack procedure and debridement. MMODL / IJN: [id number] /
[~2022-01-21 05:44] MED LIST changes: -HYDROmorphone 0.5 MG/0.5 ML SYRINGE IVP PRN; -MIDAZOLAM 2 MG/2 ML VIAL IV PRN; +ceFAZolin 3 GM in SODIUM CHLORIDE 0.9% 100 ML IVPB PRN
[2022-01-21] MEDS ORDERED: LACTATED RINGERS 1,000 ML IV SCH (05:48)
[2022-01-21] MEDS ORDERED: ONDANSETRON 4 MG/2 ML VIAL IVP ONE (05:48)
[2022-01-21] MEDS ORDERED: LIDOCAINE 1% (10MG/ML) FOR IV START INTRADERMA PRN (05:48)
[2022-01-21] MEDS ORDERED: LIDOCAINE 1% (10MG/ML) FOR IV START INTRADERMA ONE (07:01)
[2022-01-21 07:02] LABS: Glucose,Whole Blood 162 mg/dL (70-110)
[2022-01-21] MEDS ORDERED: DEXAMETHASONE SOD PHOSPHATE 4 MG/ML 1 ML VIAL IV ONE (07:02)
[2022-01-21] MEDS ORDERED: MIDAZOLAM 2 MG/2 ML VIAL IV ONE (07:07)
[2022-01-21] MEDS ORDERED: SUCCINYLCHOLINE CHLORIDE 200 MG/10 ML VIAL IV ONE (07:26)
[2022-01-21] MEDS ORDERED: fentaNYL (PF) 50 MCG/ML 2 ML AMP ONE (07:26)
[2022-01-21] MEDS ORDERED: GLYCOPYRROLATE 0.2 MG/ML 2 ML VIAL ONE (07:26)
[2022-01-21] MEDS ORDERED: LIDOCAINE 2% INJ 20 MG/ML (2 ML VIAL) ONE (07:26)
[2022-01-21] MEDS ORDERED: MIDAZOLAM 2 MG/2 ML VIAL ONE (07:26)
[2022-01-21] MEDS ORDERED: DEXAMETHASONE SOD PHOSPHATE 4 MG/ML 1 ML VIAL ONE (07:26)
[2022-01-21] MEDS ORDERED: ROPIVACAINE 5 MG/ML 30 ML VIAL ONE (07:26)
[2022-01-21] MEDS ORDERED: PROPOFOL 10 MG/ML 20 ML VIAL IV ONE (07:26)
--- NOTE | 2022-01-21 09:02 | P.OP ---
Date of Procedure: 01/21/22 Preoperative Diagnosis: Left shoulder impingement Postoperative Diagnosis: 1. Left shoulder rotator cuff tear 2. Left shoulder impingement 3. Left shoulder partial long head biceps tendon tear 4. Left shoulder superficial labral tear Procedure(s) Performed: 1. Left shoulder arthroscopic rotator cuff repair 2. Left shoulder arthroscopic subacromial decompression 3. Left shoulder arthroscopic biceps tenotomy 4. Left shoulder arthroscopic debridement superficial labral tears Implants: 14.75 Arthrex swivel lock anchor Anesthesia: GETA, regional (Interscalene block) Surgeon: Jim Castillo Tar Worker #1: Yony Trammell Estimated Blood Loss (ml): 8 Pathology: none sent Condition: stable Disposition: PACU Indications for Procedure: 66-year-old gentleman seen with progressive left shoulder pain. After treatment options were discussed with him, he elected to proceed with arthroscopy. Operative Findings: See description of procedure Description of Procedure: Patient underwent an interscalene block by department of anesthesia. The patient was then taken to the operative suite. The patient underwent a general anesthetic by the department of anesthesia. The patient was placed into a lateral position and secured. There was appropriate padding of the bony prominence. Left shoulder was then prepped and draped in normal sterile orthopedic fashion. We placed the extremity in 10 pounds of longitudinal traction. A posterior incision was now made for a posterior working portal site. The trocar and cannula were inserted into the glenohumeral joint. Arthroscopy was initiated. Spinal needle was now inserted anteriorly, to ascertain the anterior working portal site. An incision was now made in that area, a trocar was inserted followed by a probe. There was partial tearing of the long head biceps tendon. There was some superficial tearing of the anterior and superior labrum. There were mild grade 1 chondromalacia changes of the glenoid fossa. I introduced a motorized shaver and debrided out the superficial labral tears. I now performed arthroscopic biceps tenotomy. The residual labrum was stable. Instruments now removed from glenohumeral joint. Utilizing the posterior working portal site, the trocar and cannula were inserted into the subacromial space. Arthroscopy initiated. I made an incision 2 fingerbreadths lateral to the acromion. I introduced my trocar followed by my ArthroCare ablator. I now began ablating thick subacromial bursal tissue, which exposed the undersurface of the anterior acromion. There was diminished streeter bacromial space. There was a very prominent anterior acromion. A motorized bur was introduced and a subacromial decompression was performed. I also excised some osteophytes off the inferior aspect of the distal clavicle. The AC joint was visualized and noted to be moderately arthritic. I did not think enough toward a Jack procedure. I turned my attention to the rotator cuff tendon. Upon probing the tendon noted a full-thickness perforation present along the posterior aspect of the distal supraspinatus. I now debrided those margins getting down to stable tendon tissue. The defect measured 1.5 cm it was freely mobile over the footprint. I abraded the footprint with a motorized bur. With the assistance of Gaurav DIANA I pasted 3 everted mattress sutures through good bites of rotator cuff tendon. I punched a hole in the footprint area for insertion of an anchor. All 6 limbs of suture were passed through the eyelet of a 4.75 Arthrex swivel lock anchor. I placed the eyelet into the pre-punch hole. I held in position while Gaurav DIANA tensioned all 6 suture limbs and deployed the anchor was good fixation noted. All residual suture limbs were now clipped. We had good compression of the tendon along the entire footprint. Instruments now removed from the portal sites. All portal sites were approximated with nylon suture. Sterile dressings were applied followed by a yakelin rowan sling. Yony DIANA assisted in this complex case. The patient was awakened, transferred to a bed, and taken to recovery in stable condition.
[2022-01-21 09:06] VITALS: TEMP 96.8
--- NOTE | 2022-01-21 09:23 | P.ANPRN ---
Procedure Note - Anesthesia - Nerve Block Performed Left Interscalene Single Time Out Performed: Yes ([id number]) Date of Procedure: 01/21/22 Procedure Start Time: : Procedure Stop Time: 07:16 Location of Patient: PreOp Indication: Acute Post-Operative Pain, Dx/Pain Location (left shoulder) Sedation Type: Sedate with meaningful contact maintained Preparation: Sterile Prep Position: Supine Catheter: None Needle Types: Pajunk Needle Gauge: 21 Ultrasound used to visualize needle placement: Yes Ultrasound used to observe medication spread: Yes Injectate: 0.5% Ropivacaine (see comment for volume) (30 cc and 4mg of decadron) Blood Aspirated: No Pain Paresthesia on Injection Noted: No Resistance on Injection: Normal Image Stored and Saved: Yes Events: Uneventful and Well Tolerated
[2022-01-21] MEDS: fentaNYL (PF) 50 MCG/ML 2 ML AMP IV PRN ×2 (09:50→09:57)
[2022-01-21] MEDS ORDERED: LACTATED RINGERS 1,000 ML IV ONE (10:07)
[2022-01-21 10:32] VITALS: RESP 16
[2022-01-21 11:15] VITALS: BP 148/67; PULSE 58
== END 2022-01-21 11:35 | disposition home or self-care (01) ==
LOC: OR 05:44
PROVIDERS: ATTEND Orthopaedic Surgery
DX: M75.122 Complete rotator cuff tear or rupture of left shoulder, not specified as traumatic (principal); S46.112A Strain of muscle, fascia and tendon of long head of biceps, left arm, initial encounter; S43.432A Superior glenoid labrum lesion of left shoulder, initial encounter; M75.42 Impingement syndrome of left shoulder; M25.812 Other specified joint disorders, left shoulder; G89.18 Other acute postprocedural pain; M19.012 Primary osteoarthritis, left shoulder; M25.511 Pain in right shoulder; I12.9 Hypertensive chronic kidney disease with stage 1 through stage 4 chronic kidney disease, or unspecified chronic kidney disease; N18.9 Chronic kidney disease, unspecified; G47.33 Obstructive sleep apnea (adult) (pediatric); E11.22 Type 2 diabetes mellitus with diabetic chronic kidney disease; E78.5 Hyperlipidemia, unspecified; K21.9 Gastro-esophageal reflux disease without esophagitis; I25.10 Atherosclerotic heart disease of native coronary artery without angina pectoris; Z47.1 Aftercare following joint replacement surgery; Z96.653 Presence of artificial knee joint, bilateral; Z95.1 Presence of aortocoronary bypass graft; Z79.82 Long term (current) use of aspirin; Z45.2 Encounter for adjustment and management of vascular access device; X58.XXXA Exposure to other specified factors, initial encounter
CPT/HCPCS: 29827; 29828; 29826; 64415; 76942; C1713; J2250; J0330; J1100; J0690; J2405; J3010; J2795; J2704; J2001

== ENCOUNTER → 2022-03-24 | Outpatient (CLI) | payer MEDICARE, BC ==
[2022-03-24 14:35] LABS: HDL Cholesterol 32.6 mg/dL (40.00-60.00)
[2022-03-24 14:49] LABS: Chol/HDL Ratio 8.74 Ratio
== END | disposition home or self-care (01) ==
LOC: LABWHC1 09:46
PROVIDERS: ATTEND Internal Medicine Interventional Cardiology
DX: I25.10 Atherosclerotic heart disease of native coronary artery without angina pectoris (principal); E78.5 Hyperlipidemia, unspecified
CPT/HCPCS: 36415; 80061; 82550; 83721; 84450; 84460

== ENCOUNTER → 2022-03-30 | Outpatient (CLI) | payer MEDICARE, BC ==
[2022-03-30 18:08] LABS: HGB 13.2 g/dL (13.0-17.0); MCH 30.3 pg (27.0-32.0); MCHC 31.4 g/dL (32.0-37.0); MCV 96.3 fL (80.0-97.0); NRBC Per 100 WBC 0 /100 WBCS (0.0-0.0); Platelet Count 285 X 10*3/uL (140-440); RBC 4.36 X 10*6/uL (4.40-5.60); RDW 13.2 % (11.5-14.5); WBC 10.05 X 10*3/uL (4.50-10.00)
[2022-03-30 18:43] LABS: African American GFR (CKD) 57.8 (60.0-200.0); Anion Gap 10.3 mmol/L (10.00-18.00); BUN/Creat Ratio 10.63 Ratio (12.00-20.00); Blood Urea Nitrogen 15.3 mg/dL (9.0-27.0); Calcium 9.9 mg/dL (8.7-10.3); Carbon Dioxide 24.7 mmol/L (20.0-27.5); Non-African American GFR(CKD) 49.9 (60.0-200.0); Potassium 5.4 mmol/L (3.5-5.5)
== END | disposition home or self-care (01) ==
LOC: LABWHC1 10:55
PROVIDERS: ATTEND Internal Medicine Interventional Cardiology
DX: E11.9 Type 2 diabetes mellitus without complications (principal); I10 Essential (primary) hypertension; I25.10 Atherosclerotic heart disease of native coronary artery without angina pectoris
CPT/HCPCS: 36415; 80048; 85027

== ENCOUNTER → 2022-04-06 | Outpatient (CLI) | payer MEDICARE, BC ==
--- NOTE | 2022-04-06 09:51 | CT ---
EXAMINATION TYPE: CT abdomen pelvis wo con DATE OF EXAM: 04/06/2022 COMPARISON: 04/02/2020 HISTORY: 66-year-old male N20.0, calculus of left kidney, left-sided flank pain. CT DLP: 1257 mGycm. Automated exposure control for dose reduction was used. TECHNIQUE: Contiguous axial scanning of the abdomen and pelvis without IV contrast. Coronal and sagit austin reconstructions performed. FINDINGS: Median sternotomy wires. Heart normal size. No pericardial effusion. Strandy atelectasis lower lungs. No pleural effusion. Tiny hiatal hernia. Postsurgical change of sleeve gastrectomy. Liver mildly enlarged 19.3 cm with diffuse low-attenuation. Lack of IV contrast limits assessment of the solid abdominal viscera, lymph nodes, and vascular structures. A couple tiny 3 mm dependent gallstones. No abnormal gallbladder distention. Mild thickening of the left adrenal gland without discrete nodularity, similar to 04/02/2020. Right adrenal gland, spleen, and pancreas show no gross abnormality noncontrast CT. Right kidney is surgically absent. There is a 5 mm nonobstructive stone left kidney. Mild left-sided perinephric fat stranding/edema. So me strandy density extends into the renal sinus fat region as well. No ureteral stone or hydronephros is is seen. No dilated small bowel, free fluid, or free air. No mesenteric or retroperitoneal lymphadenopathy. Normal appendix. Scattered mild stool. Mild sigmoid diverticulosis. No pericolonic inflammatory licona e. Bladder is collapsed. There may be some wall thickening. Submucosal fat deposition noted. Possible se quela of chronic inflammation. Prostate gland mildly enlarged at 4.6 cm wide. No abnormal fluid colle ction in the pelvis or pelvic lymphadenopathy. Bones: Moderate degenerative disc disease thoracolumbar junction. Facet arthropathy lower lumbar spin e. IMPRESSION: 1. Right kidney is absent. There is mild stranding/edema around the left kidney but no hydronephrosi s or obstructing stone seen. Correlate to exclude underlying infection/pyelonephritis versus a recent ly passed stone. 2. 5 mm nonobstructive left renal calculus. 3. A couple tiny dependent gallstones. Mild hepatomegaly with mild to moderate hepatic steatosis. Mi ld sigmoid diverticulosis. 4. Tiny hiatal hernia. Previous sleeve gastrectomy. 5. Submucosal fat deposition of the bladder wall may reflect sequela of chronic inflammation.
== END | disposition home or self-care (01) ==
LOC: RADCTMAIN 08:03
PROVIDERS: ATTEND Urology
DX: N20.0 Calculus of kidney (principal); K76.0 Fatty (change of) liver, not elsewhere classified; K57.30 Diverticulosis of large intestine without perforation or abscess without bleeding; K44.9 Diaphragmatic hernia without obstruction or gangrene; K80.20 Calculus of gallbladder without cholecystitis without obstruction; R16.0 Hepatomegaly, not elsewhere classified
CPT/HCPCS: 74176

== ENCOUNTER → 2022-04-17 | Outpatient (CLI) | payer MEDICARE, BC ==
[2022-04-17 14:42] LABS: HCT 39.9 % (39.6-50.0); HGB 12.8 g/dL (13.0-17.0); MCH 29.8 pg (27.0-32.0); MCHC 32.1 g/dL (32.0-37.0); NRBC Per 100 WBC 0 /100 WBCS (0.0-0.0); Platelet Count 249 X 10*3/uL (140-440); RBC 4.29 X 10*6/uL (4.40-5.60); RDW 12.9 % (11.5-14.5); WBC 8.98 X 10*3/uL (4.50-10.00)
[2022-04-17 15:06] LABS: African American GFR (CKD) 53.3 (60.0-200.0); Anion Gap 11.6 mmol/L (10.00-18.00); Blood Urea Nitrogen 15.7 mg/dL (9.0-27.0); Carbon Dioxide 22.8 mmol/L (20.0-27.5); Potassium 5.2 mmol/L (3.5-5.5)
== END | disposition home or self-care (01) ==
LOC: LABPAT 09:36
PROVIDERS: ATTEND Internal Medicine Interventional Cardiology
DX: Z01.812 Encounter for preprocedural laboratory examination (principal); I25.10 Atherosclerotic heart disease of native coronary artery without angina pectoris
CPT/HCPCS: 80051; 82565; 84520; 85027

== ENCOUNTER 2022-04-21 09:31 | Observation (INO) | payer MEDICARE, BC ==
[2022-04-21] MEDS ORDERED: NALOXONE 0.4 MG/ML 1 ML VIAL IV PRN (13:24)
[2022-04-21] MEDS ORDERED: DEXTROSE 50% SYRINGE 50 ML IVP PRN ×4 (13:37→18:37)
[2022-04-21] MEDS ORDERED: ALPRAZolam 0.5 MG TAB PO PRN (13:40)
[2022-04-21] MEDS ORDERED: NITROGLYCERIN SL TABS 0.4 MG TAB SUBLINGUAL PRN (13:40)
[2022-04-21] MEDS ORDERED: ALPRAZolam 0.25 MG TAB PO PRN (13:40)
[2022-04-21] MEDS: SODIUM CHLORIDE 0.9% 1,000 ML IV SCH (15:30)
[2022-04-21 17:42] LABS: Glucose,Whole Blood 175 mg/dL (70-110)
[2022-04-21] MEDS: PANTOPRAZOLE 40 MG/10 ML VIAL IVP SCH (19:13)
[2022-04-21 19:36] LABS: Glucose,Whole Blood 178 mg/dL (70-110)
[2022-04-21] MEDS: INSULIN ASPART (NovoLOG) 100 UNIT/ML VIAL SQ SCH (20:57)
[2022-04-21] MEDS ORDERED: lisinopriL 5 MG TAB PO SCH (21:00)
[2022-04-22] MEDS: SODIUM CHLORIDE 0.9% 1,000 ML IV SCH ×2 (02:40→18:43)
[2022-04-22] MEDS: PIOGLITAZONE 30 MG TAB PO SCH (04:38)
[2022-04-22 05:00] LABS: Basophils # (A) 0.1 k/uL (0-0.2); Basophils % (A) 1 %; Eosinophils # (A) 0.4 k/uL (0-0.7); Eosinophils % (A) 4 %; HGB 13.1 gm/dL (13.0-17.5); Lymphocytes # (A) 2.1 k/uL (1.0-4.8); Lymphocytes % (A) 26 %; MCH 31.2 pg (25.0-35.0); MCHC 33.6 g/dL (31.0-37.0); MCV 92.7 fL (80.0-100.0); Mean Platelet Volume 7.9; Monocytes # (A) 0.5 k/uL (0-1.0); Monocytes % (A) 6 %; Neutrophils # (A) 4.9 k/uL (1.3-7.7); Neutrophils % (A) 60 %; Platelet Count 227 k/uL (150-450); RBC 4.21 m/uL (4.30-5.90); WBC 8.1 k/uL (3.8-10.6)
[2022-04-22 05:10] LABS: African American GFR (CKD) 53 (>60 ml/min/1.73 sqM); Anion Gap 5 mmol/L; Blood Urea Nitrogen 16 mg/dL (9-20); Calcium 9.2 mg/dL (8.4-10.2); Carbon Dioxide 25 mmol/L (22-30); Chloride 105 mmol/L (98-107); Glucose 153 mg/dL (74-99); Non-African American GFR(CKD) 46 (>60 ml/min/1.73 sqM); Potassium 4.7 mmol/L (3.5-5.1); Sodium 135 mmol/L (137-145)
[2022-04-22] MEDS: INSULIN ASPART (NovoLOG) 100 UNIT/ML VIAL SQ SCH ×4 (05:27→21:58)
[2022-04-22] MEDS: PANTOPRAZOLE 40 MG/10 ML VIAL IVP SCH (06:18)
[2022-04-22] MEDS: EZETIMIBE 10 MG TAB PO SCH (06:18)
[2022-04-22] MEDS: METOPROLOL SUCCINATE (ER) 50 MG TAB.ER.24H PO SCH (06:18)
[2022-04-22] MEDS ORDERED: HEPARIN SODIUM,PORCINE 2,500 UNIT in SODIUM CHLORIDE 0.9% 250 ML IRRIGATION PRN (07:00)
[2022-04-22] MEDS ORDERED: HEPARIN SODIUM,PORCINE 10,000 UNIT in SODIUM CHLORIDE 0.9% 1,000 ML IRRIGATION PRN (07:00)
[2022-04-22 07:08] LABS: Glucose,Whole Blood 195 mg/dL (70-110)
--- NOTE | 2022-04-22 10:48 | PN ---
PROGRESS NOTE SUBJECTIVE: This is a 66-year-old gentleman with type 2 diabetes, CKD, history of renal cancer, previous Right nephrectomy, now currently has 1 functioning kidney. His creatinine usually runs about 1.6. He has had an abnormal stress test and exertional shortness of breath, which could be anginal equivalence. I saw him in the office, and I admitted him electively yesterday for hydration prior to cardiac catheterization, and I also requested a Nephrology evaluation and also an evaluation by his PCP. The patient this morning is doing very well. He is asymptomatic. I explained to the patient and that we will perform cardiac catheterization with the least amount of contrast, and if there is enough room for the contrast and if he does have any significant lesion, I can perform intervention, but if he has received already the amount of contrast that he is allowed to with his current creatinine status, I will then perform PCI in a staged fashion. I explained this in detail, reviewed with them the rationale, risks, benefits, and options. They understand all details and wished to proceed with the procedure. His aortocoronary bypass surgery was performed on March 13, 2010, with MACIEL to LAD, vein graft to the diagonal, and also vein graft to the circumflex. RCA was a dominant disease-free vessel with minor irregularities at that time. His Lexiscan stress test revealed moderate-sized inferolateral reversible defect suggestive of ischemia with preserved ejection fraction in November of 2020, for which we pursued medical therapy, but he continues to have increasing symptoms. OBJECTIVE: VITAL SIGNS: Stable. Blood pressure is 128/70, pulse rate is 70 per minute. NECK: No JVD. HEART: S1 and S2 heard normally with somewhat distant heart sounds. There is an ejection systolic murmur audible at the base with preserved second heart sound. LUNGS: Clear. ABDOMEN: Soft and nontender. EXTREMITIES: Lower extremities reveal palpable pulses. No edema. CENTRAL NERVOUS SYSTEM: Normal. PLAN: To proceed with coronary angiogram, possible PCI today or staged intervention based on the amount of contrast used. Creatinine is 1.54, and the patient has been hydrated since yesterday. MMODL / IJN: [id number] / MTDD
[2022-04-22] MEDS ORDERED: ASPIRIN 325 MG TAB ONE (11:15)
[2022-04-22] MEDS ORDERED: IV FLUID CONTINUATION 1,000 ML IV ONE (11:17)
[2022-04-22] MEDS ORDERED: ASPIRIN 325 MG TAB PO ONE (11:17)
[2022-04-22] MEDS: MIDAZOLAM 2 MG/2 ML VIAL IV ONE ×3 (11:25→12:16)
[2022-04-22] MEDS ORDERED: LIDOCAINE 1% INJ 10MG/ML (30 ML VIAL-PF) SQ ONE (11:27)
[2022-04-22] MEDS ORDERED: NITROGLYCERIN SL TABS 0.4 MG TAB SUBLINGUAL ONE ×2 (11:36→11:38)
[2022-04-22] MEDS ORDERED: fentaNYL (PF) 50 MCG/ML 2 ML AMP ONE ×2 (11:37→13:45)
[2022-04-22] MEDS ORDERED: fentaNYL (PF) 50 MCG/ML 2 ML AMP IV ONE ×2 (11:39→13:46)
[2022-04-22] MEDS ORDERED: HEPARIN SODIUM 1,000 UN/ML (10ML VL) ONE (11:56)
[2022-04-22] MEDS: HEPARIN SODIUM 1,000 UN/ML (10ML VL) IV ONE ×3 (12:02→12:38)
[2022-04-22] MEDS ORDERED: niCARdipine 25 MG/10 ML VIAL ONE (12:24)
[2022-04-22] MEDS ORDERED: IOPAMIDOL-370 100ML BTL INJ ONE ×3 (12:31→13:21)
[2022-04-22] MEDS ORDERED: niCARdipine Syringe (1,000 mcg/10 mL) INTRACORON ONE (12:31)
--- NOTE | 2022-04-22 12:49 | P.NPCON ---
History of Present Illness - Reason for Consult chronic renal failure - History of Present Illness Patient is a 66-year-old male with history of chronic kidney disease NKF stage IIIB with baseline creatinine about 1.5-1.6 mg/dL secondary to solitary kidney and nephrosclerosis. Patient has had shortness of breath on exertion for some time now and also had an abnormal stress test as outpatient. He is admitted to the hospital for cardiac catheterization. Currently patient is chest pain-free. Patient is maintained on IV fluids Serum creatinine was 1.5 mg/dL today on 04/22/2022. Patient has been voiding well. Maintained on TAMARA inhibitor's and metformin as outpatient. Review of Systems As per HPI Past Medical History Past Medical History: Coronary Artery Disease (CAD), Diabetes Mellitus, GERD/Reflux, Hyperlipidemia, Hypertension, Myocardial Infarction ([place]), Osteoarthritis (OA), Sleep Apnea/CPAP/BIPAP Additional Past Medical History / Comment(s): uses cpap,Kidney stones, right kidney cancer--no chemo or radiation, SOB, Last Myocardial Infarction Date:: 2009 History of Any Multi-Drug Resistant Organisms: None Reported Past Surgical History: Bariatric Surgery, Coronary Bypass/CABG, Heart Catheterization, Joint Replacement, Orthopedic Surgery Additional Past Surgical History / Comment(s): 02/2010 CABG, bilateral knees replaced, lithotripsy and renal stents, gastric sleeve, rt nephrectomy, left shoulder rotator cuff, failed heart cath Past Anesthesia/Blood Transfusion Reactions: Previous Problems w/ Anesthesia Additional Past Anesthesia/Blood Transfusion Reaction / Comment(s): slow to recover,no hx blood transfusion Past Psychological History: No Psychological Hx Reported Smoking Status: Never smoker Past Alcohol Use History: Rare Past Drug Use History: None Reported - Past Family History Mother History Unknown: Yes Family Medical History: Coronary Artery Disease (CAD) Father History Unknown: Yes Family Medical History: COPD, Coronary Artery Disease (CAD), Diabetes Mellitus Medications and Allergies Home Medications Medication Instructions Recorded Confirmed Type Omeprazole 20 mg PO HS 06/16/18 04/21/22 History metFORMIN HCL [Glucophage] 1,000 mg PO BID 06/16/18 04/21/22 History Zinc Sulfate [Orazinc] 50 mg PO DAILY 01/20/22 04/21/22 History Acetaminophen/Diphenhydramine 2 tab PO HS 04/14/22 04/21/22 History [Tylenol PM 500-25mg] Ezetimibe [Zetia] 10 mg PO DAILY 04/14/22 04/21/22 History Metoprolol Succinate (ER) [Toprol 50 mg PO DAILY 04/14/22 04/21/22 History Xl] Pioglitazone [Actos] 30 mg PO DAILY 04/14/22 04/21/22 History lisinopriL [Zestril] 5 mg PO HS 04/14/22 04/21/22 History Cholecalciferol [Vitamin D3 (25 50 mcg PO DAILY 04/21/22 04/21/22 History Mcg = 1000 Iu)] Donepezil [Aricept] 5 mg PO HS 04/21/22 04/21/22 History Allergies Allergy/AdvReac Type Severity Reaction Status Date / Time meperidine [From Demerol] Allergy Rash/Hives, Verified 04/14/22 13:12 vomiting Physical Exam Vitals: Vital Signs Temp Pulse Resp BP Pulse Ox 04/22/22 08:00 57 L 04/22/22 07:00 98.9 F 57 L 18 150/78 95 04/22/22 05:31 98.2 F 61 168/85 97 04/22/22 02:19 97.8 F 66 16 167/76 96 04/21/22 19:35 97.4 F L 56 L 19 177/77 98 04/21/22 15:00 98.2 F 58 L 16 153/71 98 04/21/22 12:45 98.0 F 64 16 157/73 97 Intake and Output 04/21/22 04/22/22 04/22/22 22:59 06:59 14:59 Other: # Voids 1 1 Weight 130.201 kg Awake, comfortable, no acute distress Examination of the heart S1 and S2 Examination of the lungs bilateral breath sounds are Abdomen is soft nontender obese Examination lower extremity shows no significant edema 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 Chronic kidney disease NKF stage III a - stage IIIB with baseline creatinine about 1.5-1.6 with grams per deciliter. Etiology is solitary kidney and diabetic kidney disease 2. Dyspnea on exertion with possible underlying cardiac ischemia. Scheduled for cardiac catheterization today 3. Type 2 diabetes maintained on Actos and metformin 4. Hypertension maintained on TAMARA inhibitor's 5. History of renal cell cancer status post right nephrectomy Plan: Continue with IV fluids Okay to proceed with cardiac cath Patient is advised to hold his lisinopril today and tomorrow and he can resume it on Wednesday. Patient is also advised to hold his evening dose of metformin however he can resume that tomorrow. Monitor urine output Repeat labs as outpatient in 3-4 days. If blood pressure remains elevated patient will need another antihypertensive medication during the next 1-2 days as heart rate is borderline at 57-66 with metoprolol. He is advised to call our office if blood pressure remains elevated.
[2022-04-22] MEDS ORDERED: HYDROmorphone 0.5 MG/0.5 ML SYRINGE IVP ONE (12:57)
[2022-04-22] MEDS: NITROGLYCERIN 1000MCG/10ML SYRINGE INTRACORON ONE ×2 (13:01→13:13)
[2022-04-22] MEDS ORDERED: HEPARIN SODIUM 1,000 UN/ML (10ML VL) IV ONE (13:04)
[2022-04-22] MEDS ORDERED: SODIUM CHLORIDE 0.9% 1,000 ML IV ONE (13:06)
--- NOTE | 2022-04-22 13:14 | P.CONS ---
History of Present Illness - Reason for Consult Consult date: 04/22/22 Medical management DM,CKD,HTN Requesting physician: Alex Lemon - Chief Complaint Abnormal stress test - History of Present Illness This is a pleasant 66-year-old gentleman with past medical history of diabetes mellitus, gastroesophageal reflux disease, hyperlipidemia, hypertension, sleep apnea on CPAP, CAD, CABG, renal cell CA status post right radical nephrectomy, Covid and multiple other medical issues, directly admitted for cardiac catheterization status post abnormal stress test. Reports vague symptoms, reporting left chest pressure radiating to right chest, currently denies chest pain, palpitations or shortness of breath. Maintaining O2 sats in the mid 90s on room air. Afebrile, normal WBC. BUN 16, creatinine 1.54. Blood sugars ranging 150s to 190s, hemoglobin A1c 8. Review of Systems ROS Statement: Those systems with pertinent positive or pertinent negative responses have been documented in the HPI. ROS Other: All systems not noted in ROS Statement are negative. Past Medical History Past Medical History: Coronary Artery Disease (CAD), Diabetes Mellitus, GERD/Reflux, Hyperlipidemia, Hypertension, Myocardial Infarction ([place]), Osteo arthritis (OA), Sleep Apnea/CPAP/BIPAP Additional Past Medical History / Comment(s): uses cpap,Kidney stones, right kidney cancer--no chemo or radiation, SOB, Last Myocardial Infarction Date:: 2009 History of Any Multi-Drug Resistant Organisms: None Reported Past Surgical History: Bariatric Surgery, Coronary Bypass/CABG, Heart Catheterization, Joint Replacement, Orthopedic Surgery Additional Past Surgical History / Comment(s): 02/2010 CABG, bilateral knees replaced, lithotripsy and renal stents, gastric sleeve, rt nephrectomy, left shoulder rotator cuff, failed heart cath Past Anesthesia/Blood Transfusion Reactions: Previous Problems w/ Anesthesia Additional Past Anesthesia/Blood Transfusion Reaction / Comm: slow to recover,no hx blood transfusion Past Psychological History: No Psychological Hx Reported Smoking Status: Never smoker Past Alcohol Use History: Rare Past Drug Use History: None Reported - Past Family History Mother History Unknown: Yes Family Medical History: Coronary Artery Disease (CAD) Father History Unknown: Yes Family Medical History: COPD, Coronary Artery Disease (CAD), Diabetes Mellitus Medications and Allergies Home Medications Medication Instructions Recorded Confirmed Type Omeprazole 20 mg PO HS 06/16/18 04/21/22 History metFORMIN HCL [Glucophage] 1,000 mg PO BID 06/16/18 04/21/22 History Zinc Sulfate [Orazinc] 50 mg PO DAILY 01/20/22 04/21/22 History Acetaminophen/Diphenhydramine 2 tab PO HS 04/14/22 04/21/22 History [Tylenol PM 500-25mg] Ezetimibe [Zetia] 10 mg PO DAILY 04/14/22 04/21/22 History Metoprolol Succinate (ER) [Toprol 50 mg PO DAILY 04/14/22 04/21/22 History Xl] Pioglitazone [Actos] 30 mg PO DAILY 04/14/22 04/21/22 History lisinopriL [Zestril] 5 mg PO HS 04/14/22 04/21/22 History Cholecalciferol [Vitamin D3 (25 50 mcg PO DAILY 04/21/22 04/21/22 History Mcg = 1000 Iu)] Donepezil [Aricept] 5 mg PO HS 04/21/22 04/21/22 History Allergies Allergy/AdvReac Type Severity Reaction Status Date / Time meperidine [From Demerol] Allergy Rash/Hives, Verified 04/14/22 13:12 vomiting Physical Exam Vitals: Vital Signs Temp Pulse Resp BP Pulse Ox 04/22/22 07:00 98.9 F 57 L 18 150/78 95 04/22/22 05:31 98.2 F 61 168/85 97 04/22/22 02:19 97.8 F 66 16 167/76 96 04/21/22 19:35 97.4 F L 56 L 19 177/77 98 04/21/22 15:00 98.2 F 58 L 16 153/71 98 04/21/22 12:45 98.0 F 64 16 157/73 97 Intake and Output 04/21/22 04/22/22 04/22/22 22:59 06:59 14:59 Other: # Voids 1 1 Weight 130.201 kg PHYSICAL EXAM: VITAL SIGNS: As above GENERAL: Sitting up in chair, no acute distress HEENT: Conjunctivae normal. eyes normal. NECK: Supple, No JVD. No thyroid enlargement. No LNs CARDIOVASCULAR: S1, S2 regular. No murmur RESPIRATION: Unlabored, Breath sounds diminished in the bases. ABDOMEN: Soft, nondistended, nontender . No guarding. no masses palpable. No ascites, No hepatosplenomegaly.Positive bowel sounds. LEGS: No edema. no swelling PSYCHIATRY: Alert and oriented X3, mood and affect normal. NERVOUS SYSTEM: Cranial N 2-12 grossly normal. No focal deficits. Strength and sensation grossly intact. Skin: Warm and dry, no rash Results CBC & Chem 7: 04/22/22 04:01 04/22/22 04:01 Labs: Abnormal Lab Results - Last 24 Hours (Table) 04/21/22 04/21/22 04/22/22 Range/Units 17:41 19:35 04:01 RBC (4.30-5.90) m/uL Sodium (137-145) mmol/L Creatinine (0.66-1.25) mg/dL Glucose (74-99) mg/dL POC Glucose (mg/dL) 175 H 178 H (70-110) mg/dL Hemoglobin A1c 8.0 H (0.0-6.0) % 04/22/22 04/22/22 04/22/22 Range/Units 04:01 04:01 06:57 RBC 4.21 L (4.30-5.90) m/uL Sodium 135 L (137-145) mmol/L Creatinine 1.54 H (0.66-1.25) mg/dL Glucose 153 H (74-99) mg/dL POC Glucose (mg/dL) 195 H (70-110) mg/dL Hemoglobin A1c (0.0-6.0) % Assessment and Plan Assessment: Abnormal stress test outpatient, cardiac catheterization pending Chronic renal failure, stage IIIa-B History of renal CA with right nephrectomy History of cystoscopy, lithotripsy,stone basketing, urolithiasis Diabetes mellitus, hemoglobin A1c 8. Diabetic neuropathy Gastroesophageal reflux disease Hypertension Hyperlipidemia CAD or history of CABG Asymptomatic bradycardia Obstructive sleep apnea, on CPAP Obesity, morbid BMI 41.2 History of bariatric surgery Plan: Continue on current medication regime ,monitoring and symptomatic treatment. Avoid nephrotoxins including TAMARA inhibitor, metformin.Nephrology, on consult for management of CKD with single kidney. Cardiac catheterization pending. Close monitoring of renal function, Accu-Cheks. The impression and plan of care has been dictated as directed. : I performed a history and examination of this patient, discussed the same with the dictator. I agree with the dictator's note ,documented as a scribe. Any additional findings or plans will be noted.
[2022-04-22] MEDS ORDERED: TICAGRELOR 90 MG TAB ONE ×2 (13:15→13:45)
[2022-04-22] MEDS ORDERED: TICAGRELOR 90 MG TAB PO ONE ×2 (13:16→13:45)
[2022-04-22] MEDS ORDERED: ATROPINE SULFATE 0.1 MG/ML 10ML SYRINGE IV PRN (13:24)
[2022-04-22] MEDS ORDERED: ZOLPIDEM 5 MG TAB PO PRN (13:24)
[2022-04-22] MEDS ORDERED: RX INFO: IV CONTRAST WAS GIVEN 1 EACH MISC MISCELLANE PRN (13:24)
[2022-04-22] MEDS ORDERED: MAG HYDROX/AL HYDROX/SIMETH 30 ML CUP PO PRN (13:24)
[2022-04-22] MEDS ORDERED: ASPIRIN 81 MG PO SCH (13:30)
[2022-04-22 14:11] LABS: Glucose,Whole Blood 176 mg/dL (70-110)
[2022-04-22 14:43] VITALS: BMI 41.1
[2022-04-22] MEDS: SODIUM CHLORIDE 0.9% 1,000 ML in EMPTY BAG 1 BAG IV SCH (14:46)
[2022-04-22] MEDS ORDERED: ONDANSETRON 4 MG/2 ML VIAL IVP STA ×2 (14:55→18:24)
[2022-04-22] MEDS ORDERED: HYDROmorphone 0.5 MG/0.5 ML SYRINGE IVP STA ×2 (15:43→19:00)
[2022-04-22] MEDS: ATORVASTATIN 80 MG TAB PO SCH (16:52)
[2022-04-22 17:40] LABS: Glucose,Whole Blood 181 mg/dL (70-110)
[2022-04-22] MEDS: KETOROLAC 15 MG/ML 1 ML VIAL IVP SCH (20:14)
[2022-04-22] MEDS: TAMSULOSIN 0.4 MG CAP.ER.24H PO SCH (20:18)
[2022-04-22] MEDS ORDERED: TICAGRELOR 90 MG TAB PO STA (20:21)
[2022-04-22] MEDS ORDERED: ONDANSETRON 4 MG/2 ML VIAL IVP PRN (20:24)
--- NOTE | 2022-04-22 20:30 | US ---
EXAMINATION TYPE: US kidneys/renal and bladder DATE OF EXAM: 04/22/2022 COMPARISON: CT:04/06/22 CLINICAL HISTORY: pain. left flank pain x 5 hours. Right nephrectomy Limited due to body habitus EXAM MEASUREMENTS: Right Kidney: Surgically absent Left Kidney: 13.4 x 5.6 x 7.2 cm Right Kidney: Surgically absent Left Kidney: No evidence of hydronephrosis Renal pelvis measuring 1.3cm consistent with extrarenal p asad. Findings similar to prior CT. Bladder: Limited due to being empty Bilateral Jets seen: No IMPRESSION: 1. No evidence of left obstructive uropathy. 2. Surgically absent right kidney.
[2022-04-22] MEDS: TEMAZEPAM 15 MG CAP PO PRN (20:43)
[2022-04-22 21:00] LABS: Glucose,Whole Blood 195 mg/dL (70-110)
--- NOTE | 2022-04-22 22:00 | XR ---
EXAMINATION TYPE: XR KUB DATE OF EXAM: 04/22/2022 9:37 PM INDICATION: Patient age:Male; 66 years old; Reason for study: Hematuria. COMPARISON: CT 04/06/2022. Ultrasound 04/22/2022 TECHNIQUE: One radiographic view of the abdomen was obtained. FINDINGS: Excreted IV contrast seen within the left renal collecting system. The ureter extends to th e urinary bladder. The urinary bladder is partially filled with excreted IV contrast. The right kidne y is surgically absent. There is mild dilation of the left renal collecting system. Evaluation of the entire ureter is limited. IMPRESSION: Mild left collecting system dilation better appreciated on this exam when comparing to ultrasound.. C ontrast does extend from the kidney to the urinary bladder . Consider further evaluation of the urete r with immediate CT renal stone protocol for further evaluation of the collecting.
[2022-04-23] MEDS: KETOROLAC 15 MG/ML 1 ML VIAL IVP SCH ×2 (01:15→06:16)
[2022-04-23] MEDS: SODIUM CHLORIDE 0.9% 1,000 ML in EMPTY BAG 1 BAG IV SCH (01:16)
[2022-04-23] MEDS: SODIUM CHLORIDE 0.9% 1,000 ML IV SCH (06:19)
[2022-04-23 06:22] LABS: Glucose,Whole Blood 164 mg/dL (70-110)
[2022-04-23] MEDS: INSULIN ASPART (NovoLOG) 100 UNIT/ML VIAL SQ SCH ×4 (06:25→21:35)
[2022-04-23 07:51] LABS: Basophils # (A) 0.1 k/uL (0-0.2); Basophils % (A) 1 %; Eosinophils # (A) 0.1 k/uL (0-0.7); Eosinophils % (A) 0 %; HCT 36.5 % (39.0-53.0); HGB 12.2 gm/dL (13.0-17.5); Lymphocytes # (A) 1.5 k/uL (1.0-4.8); Lymphocytes % (A) 15 %; MCH 30.9 pg (25.0-35.0); MCHC 33.3 g/dL (31.0-37.0); MCV 92.8 fL (80.0-100.0); Mean Platelet Volume 8.3; Monocytes # (A) 0.7 k/uL (0-1.0); Monocytes % (A) 7 %; Neutrophils # (A) 7.8 k/uL (1.3-7.7); Neutrophils % (A) 74 %; Platelet Count 223 k/uL (150-450); RBC 3.94 m/uL (4.30-5.90); RDW 13.1 % (11.5-15.5); WBC 10.4 k/uL (3.8-10.6)
[2022-04-23] MEDS ORDERED: TICAGRELOR 90 MG TAB PO STA (07:59)
[2022-04-23] MEDS ORDERED: TICAGRELOR 90 MG TAB PO SCH (09:00)
[2022-04-23] MEDS: METOPROLOL SUCCINATE (ER) 50 MG TAB.ER.24H PO SCH (09:13)
[2022-04-23] MEDS: PANTOPRAZOLE 40 MG/10 ML VIAL IVP SCH (09:13)
[2022-04-23] MEDS: ASPIRIN 81 MG PO SCH ×2 (09:13→11:03)
[2022-04-23] MEDS: EZETIMIBE 10 MG TAB PO SCH (09:13)
[2022-04-23] MEDS: PIOGLITAZONE 30 MG TAB PO SCH (09:13)
[2022-04-23] MEDS: ATORVASTATIN 80 MG TAB PO SCH (09:13)
[2022-04-23 10:06] LABS: African American GFR (CKD) 28.3 (60.0-200.0); Anion Gap 11.1 mmol/L (10.00-18.00); BUN/Creat Ratio 7.27 Ratio (12.00-20.00); Blood Urea Nitrogen 18.9 mg/dL (9.0-27.0); Carbon Dioxide 19.9 mmol/L (20.0-27.5); Non-African American GFR(CKD) 24.4 (60.0-200.0); Potassium 4.6 mmol/L (3.5-5.5)
[2022-04-23] MEDS: SODIUM CHLORIDE 0.45% 1,000 ML with SODIUM BICARB (1 MEQ/ML) 50 ML IV SCH ×4 (11:03→23:21)
[2022-04-23] MEDS: HEPARIN SODIUM,PORCINE/PF 5,000 UNIT/0.5 ML SYRINGE SQ SCH ×2 (11:10→20:09)
--- NOTE | 2022-04-23 11:16 | CC ---
CARDIAC CATHETERIZATION REPORT DATE OF SERVICE: 04/22/2022. PROCEDURES PERFORMED: 1. Left heart catheterization, coronary angiography, selective injection of bypass grafts, and left internal mammary artery injection. 2. PTCA and stenting of the proximal portion of the body of the vein graft to obtuse marginal branch of circumflex. 3. PTCA and stenting of proximal RCA with drug-eluting stent. PERFORMED BY: Dr. Saira Lemon. Moderate conscious sedation time was 114 minutes. The patient was administered Versed and Dilaudid. Oxygen saturation, hemodynamics, and EKG were monitored closely. CLINICAL INFORMATION: Mr. Abraham Medeiros is a 66-year-old gentleman with a history of CAD, prior bypass surgery in 2009 performed here at [facility] with MACIEL to LAD, vein graft to the diagonal, and vein graft to the obtuse marginal branch of circumflex. RCA was a dominant vessel, not diseased and not bypassed. He also has diabetes, chronic kidney disease, underwent right nephrectomy for renal cell cancer in the past and creatinine runs about 1.6. This gentleman also has hypertension and hyperlipidemia. He had an abnormal stress test, was advised medical therapy but continued to have exertional shortness of breath, which is probably anginal equivalence. After due discussion regarding concern with renal failure and after evaluation by Nephrology and Urology, he was advised cardiac catheterization, brought in for the procedure 24 hours before and hydrated. All risks, benefits, options were explained to the patient and . They understood all details and wished to proceed with the procedure. PROCEDURE NOTE: Under local anesthesia and strict aseptic precautions, a 6-Azerbaijani introducer was placed in the right femoral artery. I used a JL4 catheter for left coronary injection. I used a Tamra catheter to get a left internal mammary artery injection. I used an AR2 diagnostic catheter and did selective injection of the 2 vein grafts as well as the galena RCA. A pigtail catheter was used to check LV pressures. Following this, I noted that he had a significant lesion in the proximal portion of the body of the vein graft to the obtuse marginal branch and this was addressed by 2 drug-eluting stents. I also stented the proximal RCA with a long 4.0 caliber drug-eluting stent. Following the procedure, the patient's sheath was taken out and Angio-Seal device was used to secure hemostasis. He was given 180 mg of Brilinta. His ACT was about 230. He received close to 11,500 units of heparin. His weight is about 130 kg. The patient tolerated the procedure well. There was a transient episode of occlusion of the vein graft to obtuse marginal, which immediately responded to nicardipine. Overall, excellent angiographic result was achieved and the patient was sent to the room in a stable condition. CARDIAC CATHETERIZATION FINDINGS: The left ventricular end-diastolic pressure was about 14 mmHg. There was no gradient across aortic valve. CORONARY ANGIOGRAPHY FINDINGS: RIGHT CORONARY ARTERY: Large dominant vessel, has a proximal lesion of 80% to 85%, and then the caliber of the vessel improves and distally bifurcates into PDA and PLV. The PDA has about a 40% ostial lesion, moderate calcification, mild diffuse disease throughout. PLV appears to be totally occluded after 2 small branches. This represents progression of disease compared to cardiac cath from 2009. LEFT MAIN CORONARY ARTERY: This is a patent vessel free of significant disease that bifurcates into LAD and circumflex. Left main itself distally has a 30% narrowing and with mild calcification. LEFT ANTERIOR DESCENDING CORONARY ARTERY: This vessel is totally occluded with limited antegrade flow. LEFT POSTERIOR CIRCUMFLEX CORONARY ARTERY: This vessel has a long area of 80% to 90% proximal stenosis as it comes down. The obtuse marginal branches are occluded. This has been bypassed. SAPHENOUS VEIN GRAFT TO THE MAJOR DIAGONAL BRANCH OF LAD: This graft is widely patent with good flow. Mild diffuse disease in the diagonal system. SAPHENOUS VEIN GRAFT TO THE OBTUSE MARGINAL BRANCH OF CIRCUMFLEX: This vein graft in the proximal portion has 80% to 90% stenosis with haziness suggestive of thrombus. Beyond this, the caliber is good. It runs distally and supplies a fair amount of myocardium and the anastomosis site is free of significant disease with decent flow in the obtuse marginal. LEFT INTERNAL MAMMARY ARTERY GRAFT TO LAD: This graft is widely patent at its origin, course, and insertion site. The LAD that is opacified is a fair caliber decent distribution, but is distally towards the apex. There is diffuse disease in the LAD. There are small septal and diagonal branches free of significant disease. FINAL IMPRESSION: This patient has slightly elevated filling pressures, no gradient. A right-dominant system with 80% proximal RCA stenosis. RCA was never grafted. His distal left main has a 20% to 30% narrowing. Total occlusion of galena LAD and 90% lesion involving the proximal circumflex. Vein graft to the diagonal is widely patent and MACIEL to LAD is patent with diffuse disease in the distal aspect of the LAD. The vein graft to the obtuse marginal has a proximal portion of the body of the graft disease of 80% to 90%. The rest of the vessel is good. RECOMMENDATIONS: I had up till now used about 85 mL of contrast and I suggested I will perform intervention very carefully, first on the vein graft to the circumflex marginal and then RCA. I proceeded to perform this in the same setting. PCI PROCEDURE DETAILS: I used initially an AR2 guide catheter, but did not have good guide support of the vein graft to the obtuse marginal. I switched over to a left coronary bypass guide and I used a FilterWire. FilterWire was kept distally and I was able to release the filter. However, following this, I had difficulty advancing the stent over this FilterWire. Eventually, I took the filter system out and advanced a Runthrough wire and performed a primary stenting of the proximal portion of the body of the graft. I used a 4.0 caliber 15 mm Xience stent. Following the deployment of stent, there was very sluggish flow distally. I used a 3.5 NC Trek balloon and dilated the distal segment of the body of the graft, and I also gave 200 mg of nicardipine. With this, the flow improved and restored to a CHIQUITA-3 flow. I then deployed an additional 3.5 caliber Xience stent of 8 mm length just distal to the previous stent. Both stents appeared to have good expansion fluoroscopically. Excellent angiographic result was achieved with good flow. I then turned my attention to the RCA. I used an AR2 guide catheter, I had difficulty. I switched over to an Allright 3.5 guide catheter and a Runthrough wire. I performed predilatation of the proximal RCA with a 3.5 NC Trek balloon. I then deployed a 23 mm long 4.0 caliber Xience stent at 14 atmospheres and then post dilated this with a 15 mm long 4.5 caliber NC Trek balloon throughout the length of the stent. Excellent angiographic result was achieved without complication. The sheath was taken out and Angio-Seal device used to secure hemostasis, and the patient was sent to the room in a stable condition. Following the procedure, he developed some vomiting and had renal colic pain and is known to have nephrolithiasis. He had vomited Brilinta and so additional 2 tablets of Brilinta 180 mg were given. Overall, angiographically, excellent angiographic result was achieved. I expect the patient to be discharged tomorrow if he remains stable. KATHARINA / DIO: [id number] /
--- NOTE | 2022-04-23 12:02 | PN ---
PROGRESS NOTE SUBJECTIVE: This gentleman underwent cardiac catheterization and stenting of proximal RCA and vein graft to the obtuse marginal yesterday. He received about a total of 195 mL of contrast. He was also well hydrated 24 hours prior to the procedure. Following the procedure, he developed significant renal colic pain, and I had to give him some Toradol to obtain pain relief. This morning, he is completely asymptomatic. He passed a kidney stone. His hematuria has resolved. His nausea has also completely resolved. He has no further emesis. He was actually able to eat this morning without any symptoms. His right groin is clean and dry with a good pulse. Vitals are stable. EKG is unremarkable. Hemoglobin and platelet counts are normal, but creatinine is up to 2.6. He is asymptomatic, however, resting comfortably. I believe a combination of obstruction yesterday with the renal stone as well as the contrast may have contributed to his rise in creatinine. He is also mildly acidotic. I am recommending that we will give him 0.45 saline with 1 amp of bicarb at 75 mL/hour, and we will seek further input from Nephrology. He is also to be seen by urologist today. I will keep him hydrated for another 24 hours in the hospital. I will await for further input. OBJECTIVE: Physical exam rinaldi, there are no significant new findings. HEART: There is a short systolic murmur at the base. LUNGS: Clear. ABDOMEN: Soft and nontender. Right groin is clean and dry. EXTREMITIES: Lower extremity pulses are well preserved. EKG is unremarkable. IMPRESSION: 1. Status post multivessel percutaneous coronary intervention with good results. No issues in this regard. 2. Severe renal colic with nephrolithiasis, and he passed a kidney stone this morning. 3. Acute kidney injury related to contrast and also to renal stone and transient obstruction. 4. Hypertension. 5. Coronary artery disease with prior bypass surgery. 6. Type 2 diabetes with chronic kidney disease and a baseline creatinine of 1.6. PLAN: To hydrate the patient. Add bicarb to the drip. Seek Nephrology input. Keep him at least for another 24 hours and obtain a BMP in the morning. MMODL / IJN: [id number] /
--- NOTE | 2022-04-23 12:04 | P.PN ---
Subjective Patient is seen for follow-up for chronic kidney disease. He has solitary kidney with chronic kidney disease and baseline creatinine around 1.5-1.6 mg/dL. Patient also has underlying history of nephrolithiasis. Patient is status post cardiac catheterization performed yesterday on 04/22/2022. Patient had PTCA and stenting of the circumflex and RCA. Postprocedure patient develop back pain and felt that he may have been passing a stone. Patient eventually did pass a stone about 4 mm in size. It has been sent to the lab for analysis. Serum creatinine increased to 2.6 today. Currently patient is pain-free. His urine is now clear. No complaints of chest pains or shortness of breath, abdominal pain or diarrhea. Objective - Vital Signs Vital signs: Vital Signs Temp 98.0 F 04/23/22 07:00 Pulse 57 L 04/23/22 07:00 Resp 18 04/23/22 07:00 BP 125/68 04/23/22 07:00 Pulse Ox 95 04/23/22 07:00 FiO2 Intake & Output 04/22/22 04/23/22 04/23/22 18:59 06:59 18:59 Intake Total 868 Output Total 200 Balance 868 -200 Weight 130.201 kg Intake: IV 750 Oral 118 Output: Urine 200 Other: Voiding Method Urinal # Voids 1 1 - Exam Awake, comfortable, no acute distress Examination of the heart S1 and S2 Examination of the lungs bilateral breath sounds are heard Abdomen is soft nontender Examination of the lower extremities shows no evidence of edema 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 grossly intact - Labs CBC & Chem 7: 04/23/22 05:18 04/23/22 05:18 Labs: Abnormal Lab Results - Last 24 Hours (Table) 04/22/22 04/22/22 04/22/22 Range/Units 14:10 17:27 20:59 RBC (4.30-5.90) m/uL Hgb (13.0-17.5) gm/dL Hct (39.0-53.0) % Neutrophils # (1.3-7.7) k/uL Carbon Dioxide (20.0-27.5) mmol/L Creatinine (0.6-1.5) mg/dL Est GFR (CKD-EPI)AfAm (60.0-200.0) Est GFR (CKD-EPI)NonAf (60.0-200.0) BUN/Creatinine Ratio (12.00-20.00) Ratio Glucose (70-110) mg/dL POC Glucose (mg/dL) 176 H 181 H 195 H (70-110) mg/dL 04/23/22 04/23/22 04/23/22 Range/Units 05:18 05:18 06:21 RBC 3.94 L (4.30-5.90) m/uL Hgb 12.2 L (13.0-17.5) gm/dL Hct 36.5 L (39.0-53.0) % Neutrophils # 7.8 H (1.3-7.7) k/uL Carbon Dioxide 19.9 L (20.0-27.5) mmol/L Creatinine 2.6 H (0.6-1.5) mg/dL Est GFR (CKD-EPI)AfAm 28.3 L (60.0-200.0) Est GFR (CKD-EPI)NonAf 24.4 L (60.0-200.0) BUN/Creatinine Ratio 7.27 L (12.00-20.00) Ratio Glucose 145 H (70-110) mg/dL POC Glucose (mg/dL) 164 H (70-110) mg/dL Assessment and Plan Assessment: 1. Chronic kidney disease NKF stage III a - stage IIIB with baseline creatinine about 1.5-1.6 with grams per deciliter. Etiology is solitary kidney and diabetic kidney disease 2. Dyspnea on exertion with possible underlying cardiac ischemia. Status post cardiac cath and stenting of RCA and obtuse marginal branch of circumflex 3. Type 2 diabetes maintained on Actos and metformin 4. Hypertension maintained on TAMARA inhibitor's 5. History of renal cell cancer status post right nephrectomy 6. Acute kidney injury secondary to obstructive uropathy from left kidney stone 7. Nephrolithiasis with a shouldn't having passed a stone yesterday. It is sent for analysis. Continue with Flomax and continue with IV fluids 8. Metabolic acidosis non-gap associated with acute kidney injury and obstruct luciano uropathy currently on bicarb drip Plan: Continue with IV bicarb. Repeat labs in a.m. Continue to strain urine. Continue to hold TAMARA inhibitor's for now along with metformin.
[2022-04-23 12:29] LABS: Glucose,Whole Blood 147 mg/dL (70-110)
--- NOTE | 2022-04-23 14:51 | P.GSCN ---
History of Present Illness Consult date: 04/23/22 Reason for Consult: Left ureteral stone History of present illness: This is a 66-year-old male with history of solitary kidney secondary to a right- sided nephrectomy for renal cell carcinoma that was done by Dr. Garcia. He's admitted to the hospital status post cardiac catheterization performed on 04/22/2022. Urology is consulted for left flank pain and the ureteral stone. Patient was having severe left flank pain associated with nausea and vomiting following his procedure. He did have a CT in 04/06/22 which showed evidence of a 5 mm left-sided renal stone, but no evidence of ureteral stone. He had a ultrasound and KUB that showed no hydronephrosis. He subsequently passed the stone this morning, and his pain has completely resolved. Denies any nausea vomiting or flank pain on evaluation this morning. Doesn't have history of recurrent stones in the past and has underwent ureteroscopy with holmium laser by . At this time denies any gross hematuria or dysuria. This creatinine is 2.6 from baseline of 1.5 Review of Systems - Constitutional Denies fever, Denies weight loss - EENT Ears, nose, mouth and throat: Denies dysphagia - Cardiovascular Denies chest pain, Denies shortness of breath - Gastrointestinal Reports as per HPI - Genitourinary Denies dysuria, Denies hematuria - Integumentary Denies rash, Denies unusual bruising Past Medical History Past Medical History: Coronary Artery Disease (CAD), Diabetes Mellitus, GERD/Reflux, Hyperlipidemia, Hypertension, Myocardial Infarction (AR), Osteoarthritis (OA), Sleep Apnea/CPAP/BIPAP Additional Past Medical History / Comment(s): uses cpap,Kidney stones, right kidney cancer--no chemo or radiation, SOB, Last Myocardial Infarction Date:: 2009 History of Any Multi-Drug Resistant Organisms: None Reported Past Surgical History: Bariatric Surgery, Coronary Bypass/CABG, Heart Catheterization, Joint Replacement, Orthopedic Surgery Additional Past Surgical History / Comment(s): 02/2010 CABG, bilateral knees replaced, lithotripsy and renal stents, gastric sleeve, rt nephrectomy, left shoulder rotator cuff, failed heart cath Past Anesthesia/Blood Transfusion Reactions: Previous Problems w/ Anesthesia Additional Past Anesthesia/Blood Transfusion Reaction / Comm: slow to recover,no hx blood transfusion Past Psychological History: No Psychological Hx Reported Smoking Status: Never smoker Past Alcohol Use History: Rare Past Drug Use History: None Reported - Past Family History Mother History Unknown: Yes Family Medical History: Coronary Artery Disease (CAD) Father History Unknown: Yes Family Medical History: COPD, Coronary Artery Disease (CAD), Diabetes Mellitus Medications and Allergies Home Medications Medication Instructions Recorded Confirmed Type Omeprazole 20 mg PO HS 06/16/18 04/21/22 History metFORMIN HCL [Glucophage] 1,000 mg PO BID 06/16/18 04/21/22 History Zinc Sulfate [Orazinc] 50 mg PO DAILY 01/20/22 04/21/22 History Acetaminophen/Diphenhydramine 2 tab PO HS 04/14/22 04/21/22 History [Tylenol PM 500-25mg] Ezetimibe [Zetia] 10 mg PO DAILY 04/14/22 04/21/22 History Metoprolol Succinate (ER) [Toprol 50 mg PO DAILY 04/14/22 04/21/22 History XL] Pioglitazone [Actos] 30 mg PO DAILY 04/14/22 04/21/22 History lisinopriL [Zestril] 5 mg PO HS 04/14/22 04/21/22 History Cholecalciferol [Vitamin D3 (25 50 mcg PO DAILY 04/21/22 04/21/22 History Mcg = 1000 Iu)] Donepezil [Aricept] 5 mg PO HS 04/21/22 04/21/22 History Aspirin 81 mg PO DAILY #90 tab 04/23/22 Rx Atorvastatin [Lipitor] 80 mg PO DAILY #90 tab 04/23/22 Rx Nitroglycerin Sl Tabs [Nitrostat] 0.4 mg SUBLINGUAL Q5M PRN #25 tab 04/23/22 Rx Ticagrelor [Brilinta] 90 mg PO BID #180 tab 04/23/22 Rx Allergies Allergy/AdvReac Type Severity Reaction Status Date / Time meperidine [From Demerol] Allergy Rash/Hives, Verified 04/14/22 13:12 vomiting Surgical - Exam Vital Signs Temp Pulse Resp BP Pulse Ox 98.0 F 64 16 157/73 97 04/21/22 12:45 04/21/22 12:45 04/21/22 12:45 04/21/22 12:45 04/21/22 12:45 - General no distress, no pain - Eyes normal ocular movement, no pale - ENT normal nares, normal mucosa - Respiratory normal expansion, normal respiratory effort - Abdomen Abdomen: soft, non tender - Psychiatric oriented to time, oriented to person, oriented to place Results - Labs 04/23/22 05:18 04/23/22 05:18 Abnormal Lab Results - Last 24 Hours (Table) 04/22/22 04/22/22 04/23/22 Range/Units 17:27 20:59 05:18 RBC (4.30-5.90) m/uL Hgb (13.0-17.5) gm/dL Hct (39.0-53.0) % Neutrophils # (1.3-7.7) k/uL Carbon Dioxide 19.9 L (20.0-27.5) mmol/L Creatinine 2.6 H (0.6-1.5) mg/dL Est GFR (CKD-EPI)AfAm 28.3 L (60.0-200.0) Est GFR (CKD-EPI)NonAf 24.4 L (60.0-200.0) BUN/Creatinine Ratio 7.27 L (12.00-20.00) Ratio Glucose 145 H (70-110) mg/dL POC Glucose (mg/dL) 181 H 195 H (70-110) mg/dL 04/23/22 04/23/22 04/23/22 Range/Units 05:18 06:21 12:27 RBC 3.94 L (4.30-5.90) m/uL Hgb 12.2 L (13.0-17.5) gm/dL Hct 36.5 L (39.0-53.0) % Neutrophils # 7.8 H (1.3-7.7) k/uL Carbon Dioxide (20.0-27.5) mmol/L Creatinine (0.6-1.5) mg/dL Est GFR (CKD-EPI)AfAm (60.0-200.0) Est GFR (CKD-EPI)NonAf (60.0-200.0) BUN/Creatinine Ratio (12.00-20.00) Ratio Glucose (70-110) mg/dL POC Glucose (mg/dL) 164 H 147 H (70-110) mg/dL Diabetes panel 04/23/22 Range/Units 05:18 Sodium 138 (135-145) mmol/L Potassium 4.6 (3.5-5.5) mmol/L Chloride 107 (96-109) mmol/L Carbon Dioxide 19.9 L (20.0-27.5) mmol/L BUN 18.9 (9.0-27.0) mg/dL Creatinine 2.6 H (0.6-1.5) mg/dL Glucose 145 H (70-110) mg/dL Calcium 9.0 (8.7-10.3) mg/dL Calcium panel 04/23/22 Range/Units 05:18 Calcium 9.0 (8.7-10.3) mg/dL Pituitary panel 04/23/22 Range/Units 05:18 Sodium 138 (135-145) mmol/L Potassium 4.6 (3.5-5.5) mmol/L Chloride 107 (96-109) mmol/L Carbon Dioxide 19.9 L (20.0-27.5) mmol/L BUN 18.9 (9.0-27.0) mg/dL Creatinine 2.6 H (0.6-1.5) mg/dL Glucose 145 H (70-110) mg/dL Calcium 9.0 (8.7-10.3) mg/dL Adrenal panel 04/23/22 Range/Units 05:18 Sodium 138 (135-145) mmol/L Potassium 4.6 (3.5-5.5) mmol/L Chloride 107 (96-109) mmol/L Carbon Dioxide 19.9 L (20.0-27.5) mmol/L BUN 18.9 (9.0-27.0) mg/dL Creatinine 2.6 H (0.6-1.5) mg/dL Glucose 145 H (70-110) mg/dL Calcium 9.0 (8.7-10.3) mg/dL Assessment and Plan Assessment: 66-year-old male with left-sided flank pain and ureteral stone which he passed this morning. His pain has completely resolved. His acute kidney injury secondary to his recent dye load, and his recent obstruction of a solitary kidney. -We'll send stone for analysis -Repeat creatinine tomorrow, if trending back down then we'll be okay for discharge from your standpoint
[2022-04-23 17:05] LABS: Glucose,Whole Blood 140 mg/dL (70-110)
[2022-04-23] MEDS: TAMSULOSIN 0.4 MG CAP.ER.24H PO SCH (18:15)
[2022-04-23 19:02] LABS: African American GFR (CKD) 32 (>60 ml/min/1.73 sqM); Anion Gap 10 mmol/L; Blood Urea Nitrogen 19 mg/dL (9-20); Calcium 9.8 mg/dL (8.4-10.2); Carbon Dioxide 21 mmol/L (22-30); Chloride 108 mmol/L (98-107); Glucose 144 mg/dL (74-99); Non-African American GFR(CKD) 28 (>60 ml/min/1.73 sqM); Potassium 4.3 mmol/L (3.5-5.1); Sodium 139 mmol/L (137-145)
[2022-04-23 20:39] LABS: Glucose,Whole Blood 187 mg/dL (70-110)
[2022-04-23 20:55] VITALS: RESP 17
[2022-04-23] MEDS: TEMAZEPAM 15 MG CAP PO PRN (21:40)
[2022-04-24 05:09] LABS: African American GFR (CKD) 38 (>60 ml/min/1.73 sqM); Anion Gap 8 mmol/L; Blood Urea Nitrogen 17 mg/dL (9-20); Calcium 8.9 mg/dL (8.4-10.2); Carbon Dioxide 21 mmol/L (22-30); Chloride 109 mmol/L (98-107); Glucose 151 mg/dL (74-99); Non-African American GFR(CKD) 33 (>60 ml/min/1.73 sqM); Potassium 4.3 mmol/L (3.5-5.1); Sodium 138 mmol/L (137-145)
[2022-04-24 06:37] LABS: Glucose,Whole Blood 158 mg/dL (70-110)
[2022-04-24] MEDS: INSULIN ASPART (NovoLOG) 100 UNIT/ML VIAL SQ SCH ×2 (06:39→12:44)
[2022-04-24] MEDS ORDERED: PANTOPRAZOLE 40 MG TABLET PO SCH (07:30)
[2022-04-24 07:40] VITALS: TEMP 98.2
[2022-04-24] MEDS: METOPROLOL SUCCINATE (ER) 50 MG TAB.ER.24H PO SCH (08:40)
[2022-04-24] MEDS: HEPARIN SODIUM,PORCINE/PF 5,000 UNIT/0.5 ML SYRINGE SQ SCH (08:40)
[2022-04-24] MEDS: ATORVASTATIN 80 MG TAB PO SCH (08:40)
[2022-04-24] MEDS: PIOGLITAZONE 30 MG TAB PO SCH (08:40)
[2022-04-24] MEDS: EZETIMIBE 10 MG TAB PO SCH (08:40)
[2022-04-24] MEDS: ASPIRIN 81 MG PO SCH (08:40)
[2022-04-24] MEDS ORDERED: TICAGRELOR 90 MG TAB PO SCH (09:00)
--- NOTE | 2022-04-24 11:06 | DS ---
DISCHARGE SUMMARY FINAL DIAGNOSES: 1. Unstable angina. 2. Type 2 diabetes with chronic kidney disease. 3. Hypertension. 4. Coronary artery disease with prior bypass surgery. 5. Hypercholesterolemia. 6. History of right nephrectomy with left nephrolithiasis. 7. Acute kidney injury. PROCEDURES PERFORMED: The patient underwent a cardiac cath with selective injection of bypass grafts and stenting of proximal RCA and vein graft to the obtuse marginal branch of circumflex with drug-eluting stents. HOSPITAL COURSE: Mr. Medeiros was brought on 21 of April, 24 hours prior to his elective cardiac cath procedure given his single kidney and chronic kidney disease and diabetes. He was hydrated and the procedure was performed on 22 of April. He had received about 195 mL of dye. I performed stenting of proximal RCA and vein graft to the obtuse marginal branch of circumflex. Following the procedure, he developed severe discomfort in the left flank area suggestive of renal colic and went on to have renal stone that he passed eventually the next day morning. There was an acute obstruction with acute kidney injury causing the creatinine to go up from 1.54 to 2.6, and then came back to 2.0. The patient also had mild acidosis. He was hydrated and given some bicarbonate in the drip. He improved very well. The renal function has shown improvement. The elevated creatinine is probably more related to obstruction than any acute contrast- induced nephropathy. I believe, we are dealing more with obstructive uropathy with renal stone after which he passed, his symptoms of flank pain resolved and his creatinine has started improving. The patient did not have any cardiac issues postprocedure. His right groin was clean and dry. EKGs were unremarkable. He was asymptomatic. He will be on dual antiplatelet therapy in the form of aspirin and Brilinta uninterrupted for 12 months. Discharge instructions regarding activity, diet, and medications were given. He will not be on lisinopril upon discharge. I will do another BMP on Wednesday and see him in the office on Wednesday. He will be discharged today, and discharge instructions regarding activity, diet, and medications were given. The patient understood all details. The patient was seen here by Dr. Wilson from Nephrology and Dr. Torres from Urology and both consults were appreciated. I will see the patient on the of this month. Discharge instructions were given. Diet, activity instructions were given. Please review the discharge packet for his medications. These include statin, beta davon, Brilinta, and aspirin. MMODL / IJN: [id number] /
--- NOTE | 2022-04-24 12:43 | P.PN ---
Subjective Progress Note Date: 04/23/22 - Chief Complaint Abnormal stress test - History of Present Illness This is a pleasant 66-year-old gentleman with past medical history of diabetes mellitus, gastroesophageal reflux disease, hyperlipidemia, hypertension, sleep apnea on CPAP, CAD, CABG, renal cell CA status post right radical nephrectomy, Covid and multiple other medical issues, directly admitted for cardiac catheterization status post abnormal stress test. Reports vague symptoms, repor ting left chest pressure radiating to right chest, currently denies chest pain, palpitations or shortness of breath. Maintaining O2 sats in the mid 90s on room air. Afebrile, normal WBC. BUN 16, creatinine 1.54. Blood sugars ranging 150s to 190s, hemoglobin A1c 8. 04/23/2022 maintained on IV fluid hydration .Completed cardiac catheterization, PTCA with stenting of the OM and RCA. Postprocedure developed left flank pain accompanied by nausea and vomiting, requiring additional pain medication. Reports it feels like a kidney stone to him; history of a left 5 mm kidney stone. Urine clear, No hematuria this morning. Denies chest pain, palpitations or increasing shortness of breath. Labs/hemoglobin /Creatinine pending. Objective - Vital Signs Vital signs: Vital Signs Temp 98.0 F 04/23/22 07:00 Pulse 57 L 04/23/22 07:00 Resp 18 04/23/22 07:00 BP 125/68 04/23/22 07:00 Pulse Ox 95 04/23/22 07:00 FiO2 Intake & Output 04/22/22 04/23/22 04/23/22 18:59 06:59 18:59 Intake Total 868 Output Total 200 Balance 868 -200 Weight 130.201 kg Intake: IV 750 Oral 118 Output: Urine 200 Other: Voiding Method Urinal # Voids 1 1 - Exam PHYSICAL EXAM: VITAL SIGNS: As above GENERAL: Sitting up in chair, no acute distress HEENT: Conjunctivae normal. eyes normal. MMM. NECK: Supple, No JVD. No thyroid enlargement. No LNs. CARDIOVASCULAR: S1, S2 regular. No murmur. RESPIRATION: Unlabored, Breath sounds diminished in the bases. ABDOMEN: Soft, nondistended, nontender . No guarding. no masses palpabl e.Positive bowel sounds. LEGS: No edema. no swelling. PSYCHIATRY: Alert and oriented X3, mood and affect normal. NERVOUS SYSTEM: Cranial N 2-12 grossly normal. No focal deficits. Strength and sensation grossly intact. Skin: Warm and dry, no rash - Labs CBC & Chem 7: 04/23/22 05:18 04/24/22 04:21 Labs: Abnormal Lab Results - Last 24 Hours (Table) 04/22/22 04/22/22 04/22/22 Range/Units 14:10 17:27 20:59 RBC (4.30-5.90) m/uL Hgb (13.0-17.5) gm/dL Hct (39.0-53.0) % Neutrophils # (1.3-7.7) k/uL Carbon Dioxide (20.0-27.5) mmol/L Creatinine (0.6-1.5) mg/dL Est GFR (CKD-EPI)AfAm (60.0-200.0) Est GFR (CKD-EPI)NonAf (60.0-200.0) BUN/Creatinine Ratio (12.00-20.00) Ratio Glucose (70-110) mg/dL POC Glucose (mg/dL) 176 H 181 H 195 H (70-110) mg/dL 04/23/22 04/23/22 04/23/22 Range/Units 05:18 05:18 06:21 RBC 3.94 L (4.30-5.90) m/uL Hgb 12.2 L (13.0-17.5) gm/dL Hct 36.5 L (39.0-53.0) % Neutrophils # 7.8 H (1.3-7.7) k/uL Carbon Dioxide 19.9 L (20.0-27.5) mmol/L Creatinine 2.6 H (0.6-1.5) mg/dL Est GFR (CKD-EPI)AfAm 28.3 L (60.0-200.0) Est GFR (CKD-EPI)NonAf 24.4 L (60.0-200.0) BUN/Creatinine Ratio 7.27 L (12.00-20.00) Ratio Glucose 145 H (70-110) mg/dL POC Glucose (mg/dL) 164 H (70-110) mg/dL Assessment and Plan Assessment: Abnormal stress test outpatient, cardiac catheterization with multivessel PCI Acute Left flank pain, suspect secondary to kidney stone Chronic renal failure, stage IIIa-B History of renal CA with right nephrectomy History of cystoscopy, lithotripsy,stone basketing, urolithiasis Diabetes mellitus, hemoglobin A1c 8. Diabetic neuropathy Gastroesophageal reflux disease Hypertension Hyperlipidemia CAD or history of CABG Asymptomatic bradycardia Obstructive sleep apnea, on CPAP Obesity, morbid BMI 41.2 History of bariatric surgery Plan: Continue on current medication regime ,monitoring and symptomatic treatment. Labs pending. Maintain hydration, Strain urine. Creatinine pending post contrast .Continue avoid nephrotoxins. Follow closely with nephrology. Urology consult in place, recommendations pending. The impression and plan of care has been dictated as directed. : I performed a history and examination of this patient, discussed the same with the dictator. I agree with the dictator's note ,documented as a scribe. Any additional findings or plans will be noted.
[2022-04-24 12:44] LABS: Glucose,Whole Blood 139 mg/dL (70-110)
[2022-04-24 12:53] VITALS: BP 159/79; PULSE 77
--- NOTE | 2022-04-24 12:59 | P.PN ---
Subjective Progress Note Date: 04/24/22 - Chief Complaint Abnormal stress test - History of Present Illness This is a pleasant 66-year-old gentleman with past medical history of diabetes mellitus, gastroesophageal reflux disease, hyperlipidemia, hypertension, sleep apnea on CPAP, CAD, CABG, renal cell CA status post right radical nephrectomy, Covid and multiple other medical issues, directly admitted for cardiac catheterization status post abnormal stress test. Reports vague symptoms, repor ting left chest pressure radiating to right chest, currently denies chest pain, palpitations or shortness of breath. Maintaining O2 sats in the mid 90s on room air. Afebrile, normal WBC. BUN 16, creatinine 1.54. Blood sugars ranging 150s to 190s, hemoglobin A1c 8. 04/23/2022 maintained on IV fluid hydration .Completed cardiac catheterization, PTCA with stenting of the OM and RCA. Postprocedure developed left flank pain accompanied by nausea and vomiting, requiring additional pain medication. Reports it feels like a kidney stone to him; history of a left 5 mm kidney stone. Urine clear, No hematuria this morning. Denies chest pain, palpitations or increasing shortness of breath. Labs/hemoglobin /Creatinine pending. 04/24/2022 creatinine increased yesterday, mildly acidotic, passed kidney stone yesterday morning. Maintained on IV fluid hydration/bicarb drip. Hemoglobin stable. Creatinine trending down this morning was 2.02. Significant clinical improvement. Denies chest pain, palpitations or shortness of breath. Denies flank pain, hematuria. Denies lightheadedness dizziness or focal deficits. Blood sugars controlled.Hypertensive, eager for discharge. Objective - Vital Signs Vital signs: Vital Signs Temp 98.2 F 04/24/22 07:00 Pulse 64 04/24/22 07:00 Resp 17 04/24/22 07:00 BP 180/77 04/24/22 07:00 Pulse Ox 96 04/24/22 07:00 FiO2 Intake & Output 04/23/22 04/24/22 04/24/22 18:59 06:59 18:59 Intake Total 150 Output Total 100 Balance 150 -100 Intake: Intake, IV Titration 150 Amount Sodium Chloride 0.45% 1, 150 000 ml @ 75 mls/hr IV . Q14H RADHA with Sodium Bicarb (1 Meq/ml) 50 ml Rx#:[id number] Output: Urine 100 Other: Voiding Method Urinal # Voids 3 - Exam PHYSICAL EXAM: VITAL SIGNS: As above GENERAL: Alert and oriented 3, Sitting up in chair, no acute distress HEENT: Conjunctivae normal. eyes normal. MMM. NECK: Supple, No JVD. CARDIOVASCULAR: S1, S2 regular. No murmur. RESPIRATION: Unlabored, Breath sounds diminished in the bases. ABDOMEN: Soft, nondistended, nontender . No guarding. Positive bowel sounds. LEGS: No edema. no swelling. NERVOUS SYSTEM: Cranial N 2-12 grossly normal. No focal deficits. Strength and sensation grossly intact. Skin: Warm and dry, no rash - Labs CBC & Chem 7: 04/23/22 05:18 04/24/22 04:21 Labs: Abnormal Lab Results - Last 24 Hours (Table) 04/23/22 04/23/22 04/23/22 Range/Units 17:04 18:31 20:36 Chloride 108 H (98-107) mmol/L Carbon Dioxide 21 L (22-30) mmol/L Creatinine 2.33 H (0.66-1.25) mg/dL Glucose 144 H (74-99) mg/dL POC Glucose (mg/dL) 140 H 187 H (70-110) mg/dL 04/24/22 04/24/22 Range/Units 04:21 06:35 Chloride 109 H (98-107) mmol/L Carbon Dioxide 21 L (22-30) mmol/L Creatinine 2.02 H (0.66-1.25) mg/dL Glucose 151 H (74-99) mg/dL POC Glucose (mg/dL) 158 H (70-110) mg/dL Assessment and Plan Assessment: Abnormal stress test outpatient, cardiac catheterization with multivessel PCI Acute Left flank pain, secondary to kidney stone Acute renal failure secondary to contrast and obstructive uropathy secondary to stone, improving Chronic renal failure, stage IIIa-B History of renal CA with right nephrectomy History of cystoscopy, lithotripsy,stone basketing, urolithiasis Metabolic acidosis, on bicarb drip Diabetes mellitus, hemoglobin A1c 8. Diabetic neuropathy Gastroesophageal reflux disease Hypertension Hyperlipidemia CAD or history of CABG Asymptomatic bradycardia Obstructive sleep apnea, on CPAP Obesity, morbid BMI 41.2 History of bariatric surgery Plan: Continue on current medication regime ,monitoring and symptomatic treatment. Creatinine trending down.Continue avoid nephrotoxins. Medically cleared for discharge. Follow closely with nephrology and urology for further DC recommendations. The impression and plan of care has been dictated as directed. : I performed a history and examination of this patient, discussed the same with the dictator. I agree with the dictator's note ,documented as a scribe. Any additional findings or plans will be noted.
--- NOTE | 2022-04-24 13:26 | P.PN ---
Subjective Progress Note Date: 04/24/22 No acute overnight events, denies any flank pain and nausea or vomiting. Creatinine improved to 2 this morning Objective - Vital Signs Vital signs: Vital Signs Temp 98.2 F 04/24/22 07:00 Pulse 77 04/24/22 12:53 Resp 17 04/24/22 07:00 BP 159/79 04/24/22 12:53 Pulse Ox 96 04/24/22 07:00 FiO2 Intake & Output 04/23/22 04/24/22 04/24/22 18:59 06:59 18:59 Intake Total 150 Output Total 100 Balance 150 -100 Intake: Intake, IV Titration 150 Amount Sodium Chloride 0.45% 1, 150 000 ml @ 75 mls/hr IV . Q14H RADHA with Sodium Bicarb (1 Meq/ml) 50 ml Rx#:[id number] Output: Urine 100 Other: Voiding Method Urinal # Voids 3 - Exam General: Well developed, well nourished. No acute distress. HEENT: Head is atraumatic, normocephalic. Lungs: Respirations even and nonlabored. Abdomen/GI: Soft. No abdominal distention or tenderness. : No suprapubic tenderness. Skin: Warm and dry Neurologic: Awake, alert and oriented times 3. CN II-XII grossly intact. No focal deficits. Psychiatric: Appropriate mood and affect. - Labs CBC & Chem 7: 04/23/22 05:18 04/24/22 04:21 Labs: Abnormal Lab Results - Last 24 Hours (Table) 04/23/22 04/23/22 04/23/22 Range/Units 17:04 18:31 20:36 Chloride 108 H (98-107) mmol/L Carbon Dioxide 21 L (22-30) mmol/L Creatinine 2.33 H (0.66-1.25) mg/dL Glucose 144 H (74-99) mg/dL POC Glucose (mg/dL) 140 H 187 H (70-110) mg/dL 04/24/22 04/24/22 04/24/22 Range/Units 04:21 06:35 12:43 Chloride 109 H (98-107) mmol/L Carbon Dioxide 21 L (22-30) mmol/L Creatinine 2.02 H (0.66-1.25) mg/dL Glucose 151 H (74-99) mg/dL POC Glucose (mg/dL) 158 H 139 H (70-110) mg/dL Assessment and Plan Assessment: The patient is sitting up in the chair. He denies any abdominal or flank pain. No hematuria, dysuria, nausea, or vomiting. His serum creatinine continues to trend down and is 2.02 today. Plan: - Patient may be discharged from a urological standpoint - Continue Ditropan - Follow up with Dr. Garcia in 3-4 weeks Impression and plan of care have been directed as dictated by the signing physician. Liz Vazquez nurse practitioner acting as scribe for signing physician. Liz Vazquez [facility] Palliative Care/Urology Spectralink [phone] Email: [email or web address] I personally performed and participated in the history, physical, the decision making, I agree with the assessment and plan of DEPUTY BAILIFF
--- NOTE | 2022-04-24 16:58 | P.PN ---
Subjective Patient is seen for follow-up for chronic kidney disease. He has solitary kidney with chronic kidney disease and baseline creatinine around 1.5-1.6 mg/dL. Patient also has underlying history of nephrolithiasis. Patient is status post cardiac catheterization performed yesterday on 04/22/2022. Patient had PTCA and stenting of the circumflex and RCA. Postprocedure patient develop back pain and felt that he may have been passing a stone. Patient eventually did pass a stone about 4 mm in size. It has been sent to the lab for analysis. Serum creatinine has increased to 2.6 yesterday and it is down to 2.0 today. Currently patient is pain-free. His urine is now clear. No complaints of chest pains or shortness of breath, abdominal pain or diarrhea. Maintained on IV bicarb. Objective - Vital Signs Vital signs: Vital Signs Temp 98.2 F 04/24/22 07:00 Pulse 77 04/24/22 12:53 Resp 17 04/24/22 07:00 BP 159/79 04/24/22 12:53 Pulse Ox 96 04/24/22 07:00 FiO2 Intake & Output 04/23/22 04/24/22 04/24/22 18:59 06:59 18:59 Intake Total 150 Output Total 100 Balance 150 -100 Intake: Intake, IV Titration 150 Amount Sodium Chloride 0.45% 1, 150 000 ml @ 75 mls/hr IV . Q14H RADHA with Sodium Bicarb (1 Meq/ml) 50 ml Rx#:[id number] Output: Urine 100 Other: Voiding Method Urinal # Voids 3 - Exam Awake, comfortable, no acute distress Examination of the heart S1 and S2 Examination of the lungs bilateral breath sounds are heard Abdomen is soft nontender Examination of the lower extremities shows no evidence of edema DELIVERY ENGINEER exam grossly intact - Labs CBC & Chem 7: 04/23/22 05:18 04/24/22 04:21 Labs: Abnormal Lab Results - Last 24 Hours (Table) 04/23/22 04/23/22 04/23/22 Range/Units 17:04 18:31 20:36 Chloride 108 H (98-107) mmol/L Carbon Dioxide 21 L (22-30) mmol/L Creatinine 2.33 H (0.66-1.25) mg/dL Glucose 144 H (74-99) mg/dL POC Glucose (mg/dL) 140 H 187 H (70-110) mg/dL 04/24/22 04/24/22 04/24/22 Range/Units 04:21 06:35 12:43 Chloride 109 H (98-107) mmol/L Carbon Dioxide 21 L (22-30) mmol/L Creatinine 2.02 H (0.66-1.25) mg/dL Glucose 151 H (74-99) mg/dL POC Glucose (mg/dL) 158 H 139 H (70-110) mg/dL Assessment and Plan Assessment: 1. Chronic kidney disease NKF stage III a - stage IIIB with baseline creatinine about 1.5-1.6 with grams per deciliter. Etiology is solitary kidney and diabetic kidney disease 2. Dyspnea on exertion with possible underlying cardiac ischemia. Status post cardiac cath and stenting of RCA and obtuse marginal branch of circumflex 3. Type 2 diabetes maintained on Actos and metformin 4. Hypertension maintained on MARKY inhibitor's 5. History of renal cell cancer status post right nephrectomy 6. Acute kidney injury secondary to obstructive uropathy from left kidney stone 7. Nephrolithiasis with pt passing a stone It is sent for analysis. Continue with Flomax and continue with IV fluids 8. Metabolic acidosis non-gap associated with acute kidney injury and obstructive uropathy currently on bicarb drip Plan: Stable for discharge from nephrology standpoint Check labs as outpatient Hold Marky inhibitors for regular 1- 2 days
== END 2022-04-24 13:20 | disposition home or self-care (01) ==
LOC: 6NMEDSUR 12:03
PROVIDERS: ADMIT Internal Medicine Interventional Cardiology; ATTEND Internal Medicine Interventional Cardiology
DX: I25.110 Atherosclerotic heart disease of native coronary artery with unstable angina pectoris (principal); E87.20 Acidosis, unspecified; E78.00 Pure hypercholesterolemia, unspecified; I12.9 Hypertensive chronic kidney disease with stage 1 through stage 4 chronic kidney disease, or unspecified chronic kidney disease; N18.30 Chronic kidney disease, stage 3 unspecified; R00.1 Bradycardia, unspecified; G47.33 Obstructive sleep apnea (adult) (pediatric); E66.01 Morbid (severe) obesity due to excess calories; N13.9 Obstructive and reflux uropathy, unspecified; N20.0 Calculus of kidney; N17.9 Acute kidney failure, unspecified; E11.22 Type 2 diabetes mellitus with diabetic chronic kidney disease; E11.40 Type 2 diabetes mellitus with diabetic neuropathy, unspecified; K21.9 Gastro-esophageal reflux disease without esophagitis; I25.2 Old myocardial infarction; Z90.5 Acquired absence of kidney; Z95.1 Presence of aortocoronary bypass graft; Z85.528 Personal history of other malignant neoplasm of kidney; Z82.49 Family history of ischemic heart disease and other diseases of the circulatory system; Z83.3 Family history of diabetes mellitus; Z82.5 Family history of asthma and other chronic lower respiratory diseases; Z79.84 Long term (current) use of oral hypoglycemic drugs; Z79.899 Other long term (current) drug therapy; Z88.8 Allergy status to other drugs, medicaments and biological substances; Z68.41 Body mass index [BMI] 40.0-44.9, adult; Z98.84 Bariatric surgery status; Z79.82 Long term (current) use of aspirin; Z79.02 Long term (current) use of antithrombotics/antiplatelets; Z86.16 Personal history of COVID-19
CPT/HCPCS: 96376 ×2; 96361 ×2; 96372 ×2; 96374; 96375; 93458; 80048 ×3; 85025 ×2; 82365; 83036; 74018; 76770; G0379; G0378 ×4; C9600; C9604; C1769 ×5; C1760; C1884; C1887 ×3; C1725 ×2; C1894; C1874 ×3; J2250; J2405; J2001; J3010; J1644 ×3; J1885 ×2; C9113 ×3; J1170; Q9967

== ENCOUNTER → 2022-04-27 | Outpatient (CLI) | payer MEDICARE, BC ==
[2022-04-27 18:04] LABS: Basophils # (A) 0.08 X 10*3/uL (0.00-0.10); Basophils % (A) 0.8 %; Eosinophils # (A) 0.44 X 10*3/uL (0.04-0.35); Eosinophils % (A) 4.4 %; HCT 41.3 % (39.6-50.0); HGB 13.2 g/dL (13.0-17.0); Immature Grans, Automated 0.3 %; Lymphocytes # (A) 1.88 X 10*3/uL (0.90-5.00); Lymphocytes % (A) 18.9 %; MCH 30.6 pg (27.0-32.0); MCV 95.8 fL (80.0-97.0); Mean Platelet Volume 10.1 fL (9.5-12.2); Monocytes # (A) 0.81 X 10*3/uL (0.20-1.00); Monocytes % (A) 8.1 %; NRBC Per 100 WBC 0 /100 WBCS (0.0-0.0); Neutrophils # (A) 6.71 X 10*3/uL (1.80-7.70); Neutrophils % (A) 67.5 %; Platelet Count 275 X 10*3/uL (140-440); RBC 4.31 X 10*6/uL (4.40-5.60); RDW 13.1 % (11.5-14.5); WBC 9.95 X 10*3/uL (4.50-10.00)
[2022-04-27 19:56] LABS: African American GFR (CKD) 44.2 (60.0-200.0); Anion Gap 12.3 mmol/L (10.00-18.00); BUN/Creat Ratio 7.61 Ratio (12.00-20.00); Blood Urea Nitrogen 13.7 mg/dL (9.0-27.0); Calcium 9.9 mg/dL (8.7-10.3); Carbon Dioxide 21.7 mmol/L (20.0-27.5); Non-African American GFR(CKD) 38.1 (60.0-200.0); Potassium 4.9 mmol/L (3.5-5.5)
== END | disposition home or self-care (01) ==
LOC: LABWHC1 11:56
PROVIDERS: ATTEND Nurse Practitioner
DX: Z20.2 Contact with and (suspected) exposure to infections with a predominantly sexual mode of transmission (principal)
CPT/HCPCS: 36415; 80048; 85025

== ENCOUNTER → 2022-05-05 | Outpatient (CLI) | payer MEDICARE, BC ==
[2022-05-05 15:10] LABS: Anion Gap 9.9 mmol/L (10.00-18.00); BUN/Creat Ratio 9.47 Ratio (12.00-20.00); Blood Urea Nitrogen 14.2 mg/dL (9.0-27.0); Calcium 10.2 mg/dL (8.7-10.3); Carbon Dioxide 25.1 mmol/L (20.0-27.5); Non-African American GFR(CKD) 47.5 (60.0-200.0); Potassium 4.8 mmol/L (3.5-5.5)
== END | disposition home or self-care (01) ==
LOC: LABWHC1 09:24
PROVIDERS: ATTEND Internal Medicine Interventional Cardiology
DX: E11.22 Type 2 diabetes mellitus with diabetic chronic kidney disease (principal); N18.9 Chronic kidney disease, unspecified
CPT/HCPCS: 36415; 80048

== ENCOUNTER → 2022-10-28 | Outpatient (CLI) | payer MEDICARE, BC ==
[2022-10-28 11:00] LABS: Creatinine,Urine Random 271.9 mg/dL; Protein/Creatinine Ratio,Urine 0.063
[2022-10-28 16:27] LABS: % Iron Saturation 12.38 (15.00-50.00); BUN/Creat Ratio 8.19 Ratio (12.00-20.00); Blood Urea Nitrogen 13.1 mg/dL (9.0-27.0); Calcium 9.9 mg/dL (8.7-10.3); Carbon Dioxide 19.6 mmol/L (21.6-31.8); Chloride 106 mmol/L (96-109); Glucose 125 mg/dL (70-110); Iron 53 UG/DL (65-175); Sodium 139 mmol/L (135-145); Total Iron Binding Capacity 428 UG/DL (228-460)
[2022-10-28 16:32] LABS: Ferritin 20.4 ng/mL (22.0-322.0)
[2022-10-28 22:23] LABS: Appearance,Urine Clear (Clear); Bacteria,Urine None Seen (None Seen); Bilirubin,Urine Negative (Negative); Blood,Urine Negative (Negative); Color,Urine Yellow (Yellow); Ketones,Urine Trace (Negative); Nitrite,Urine Negative (Negative); Specific Gravity,Urine 1.028 (1.001-1.030)
== END | disposition home or self-care (01) ==
LOC: LABWHC1 09:22
PROVIDERS: ATTEND Nurse Practitioner Family
DX: E55.9 Vitamin D deficiency, unspecified (principal); N25.81 Secondary hyperparathyroidism of renal origin; N39.0 Urinary tract infection, site not specified; D63.1 Anemia in chronic kidney disease; N18.31 Chronic kidney disease, stage 3a; R80.9 Proteinuria, unspecified
CPT/HCPCS: 36415; 80048; 81001; 82043; 82306; 82570; 82728; 83540; 83550; 83735; 83970; 84100; 84156; 85025

== ENCOUNTER → 2022-11-25 | Outpatient (CLI) | payer MEDICARE, BC ==
--- NOTE | 2022-11-25 08:39 | XR ---
EXAMINATION TYPE: XR chest 2V DATE OF EXAM: 11/25/2022 COMPARISON: 10/27/2021 HISTORY: Shortness of breath TECHNIQUE: Frontal and lateral views of the chest are obtained. FINDINGS: Scattered senescent parenchymal changes noted. Hyperinflation compatible with COPD. No evidence for infiltrate. No evidence for atelectasis. Heart size is stable. Mediastinal structures are stable and grossly unremarkable. No evidence for hilar prominence. Degenerative changes dorsal spine. IMPRESSION: 1. No evidence for acute pulmonary disease.
[2022-11-25 16:07] LABS: ALT 13 U/L (10-49); AST 12 U/L (14-35); Albumin 4.2 d/dL (3.8-4.9); Albumin/Globulin Ratio 1.91 Ratio (1.60-3.17); Alkaline Phosphatase 69 U/L (41-126); BUN/Creat Ratio 9.06 Ratio (12.00-20.00); Blood Urea Nitrogen 14.5 mg/dL (9.0-27.0); Carbon Dioxide 23.2 mmol/L (21.6-31.8); Chloride 106 mmol/L (96-109); Globulin 2.2 d/dL (1.6-3.3); Glucose 140 mg/dL (70-110); Potassium 5.5 mmol/L (3.5-5.5); Sodium 141 mmol/L (135-145); Total Bilirubin 0.2 mg/dL (0.3-1.2); Total Protein 6.4 d/dL (6.2-8.2)
== END | disposition home or self-care (01) ==
LOC: LABWHC1 07:50
PROVIDERS: ATTEND Urology
DX: C64.1 Malignant neoplasm of right kidney, except renal pelvis (principal); R06.02 Shortness of breath
CPT/HCPCS: 36415; 71046; 80053

== ENCOUNTER → 2022-12-28 | Outpatient (CLI) | payer MEDICARE, BC ==
[2022-12-28 16:22] LABS: BUN/Creat Ratio 10.94 Ratio (12.00-20.00); Blood Urea Nitrogen 18.6 mg/dL (9.0-27.0); Calcium 10.2 mg/dL (8.7-10.3); Carbon Dioxide 23.6 mmol/L (21.6-31.8); Chloride 105 mmol/L (96-109); Glucose 124 mg/dL (70-110); Potassium 5.3 mmol/L (3.5-5.5); Sodium 141 mmol/L (135-145)
== END | disposition home or self-care (01) ==
LOC: LABWHC1 11:16
PROVIDERS: ATTEND Urology
DX: N18.31 Chronic kidney disease, stage 3a (principal); R35.1 Nocturia
CPT/HCPCS: 36415; 80048; 84153

== ENCOUNTER → 2023-02-09 | Outpatient (CLI) | payer MEDICARE, BC ==
--- NOTE | 2023-02-09 11:50 | XR ---
EXAMINATION TYPE: XR KUB DATE OF EXAM: 02/09/2023 COMPARISON: 04/22/2022 INDICATION: Hematuria TECHNIQUE: Single view abdomen frontal projection FINDINGS: There is a normal bowel gas pattern. Psoas margins are normal. No organomegaly is present. No suspicious calcifications are identified. IMPRESSION: 1. Unremarkable Abdomen
== END | disposition home or self-care (01) ==
LOC: RADXRMAIN 11:05
PROVIDERS: ATTEND Urology
DX: N20.0 Calculus of kidney (principal); R31.9 Hematuria, unspecified
CPT/HCPCS: 74018

== ENCOUNTER → 2023-03-05 | Outpatient (CLI) | payer MEDICARE, BC ==
[2023-03-05 16:14] LABS: Appearance,Urine Clear (Clear); Bilirubin,Urine Negative (Negative); Blood,Urine Negative (Negative); Color,Urine Yellow (Yellow); Ketones,Urine Negative (Negative); Nitrite,Urine Negative (Negative); PH, Urine 5.5; Specific Gravity,Urine 1.022 (1.001-1.030); Urobilinogen,Urine 0.2 E.U./DL
[2023-03-05 16:26] LABS: HCT 43.1 % (39.6-50.0); HGB 13.2 d/dL (13.0-17.0); MCH 28.6 pg (27.0-32.0); MCHC 30.6 d/dL (32.0-37.0); MCV 93.3 FL (80.0-97.0); Mean Platelet Volume 9.4 FL (9.5-12.2); NRBC Per 100 WBC 0 X 10*3/uL (0.00-0.01); Platelet Count 262 X 10*3/uL (140-440); RBC 4.62 X 10*6/uL (4.40-5.60); RDW 14.2 % (11.5-14.5); WBC 8.64 X 10*3/uL (4.50-10.00)
[2023-03-05 16:27] LABS: Basophils # (A) 0.07 X 10*3/uL (0.00-0.10); Basophils % (A) 0.8 %; Eosinophils # (A) 0.25 X 10*3/uL (0.04-0.35); Eosinophils % (A) 2.9 %; Lymphocytes % (A) 24.3 %; Monocytes # (A) 0.65 X 10*3/uL (0.20-1.00); Monocytes % (A) 7.5 %; Neutrophils # (A) 5.54 X 10*3/uL (1.80-7.70); Neutrophils % (A) 64.2 %
[2023-03-05 16:56] LABS: % Iron Saturation 19.17 (15.00-50.00); BUN/Creat Ratio 8.87 Ratio (12.00-20.00); Blood Urea Nitrogen 13.3 mg/dL (9.0-27.0); Calcium 10.4 mg/dL (8.7-10.3); Carbon Dioxide 26.5 mmol/L (21.6-31.8); Chloride 102 mmol/L (96-109); Ferritin 28.5 ng/mL (22.0-322.0); Glucose 142 mg/dL (70-110); Iron 69 UG/DL (65-175); Potassium 5.3 mmol/L (3.5-5.5); Sodium 140 mmol/L (135-145); Total Iron Binding Capacity 360 UG/DL (228-460)
== END | disposition home or self-care (01) ==
LOC: LABWHC1 09:02
PROVIDERS: ATTEND Nurse Practitioner Family
DX: N18.31 Chronic kidney disease, stage 3a (principal); D63.1 Anemia in chronic kidney disease; N39.0 Urinary tract infection, site not specified
CPT/HCPCS: 36415; 80048; 81003; 82043; 82570; 82728; 83540; 83550; 85025

== ENCOUNTER → 2023-03-17 | Outpatient (CLI) | payer MEDICARE, BC ==
--- NOTE | 2023-03-17 22:23 | US ---
EXAMINATION TYPE: US kidneys/renal and bladder DATE OF EXAM: 03/17/2023 COMPARISON: US 2021 CLINICAL INDICATION: Male, 67 years old with history of R31.0 GROSS HEMATURIA; Hematuria 1 month ago EXAM MEASUREMENTS: Left Kidney: 13.8 x 6.5 x 6.3 cm Right Kidney: surgically absent Left Kidney: No hydronephrosis or masses seen Bladder: wnl Bilateral Jets seen: left jet seen IMPRESSION: 1. Visualized left kidney appears unremarkable
== END | disposition home or self-care (01) ==
LOC: RADUSWWP 14:00
PROVIDERS: ATTEND Urology
DX: R31.0 Gross hematuria (principal)
CPT/HCPCS: 76770

== ENCOUNTER → 2023-12-06 | Outpatient (CLI) | payer MEDICARE, BC ==
--- NOTE | 2023-12-06 11:17 | XR ---
EXAMINATION TYPE: XR chest 2V DATE OF EXAM: 12/06/2023 COMPARISON: 11/25/2022 INDICATION: Malignant neoplasm right kidney TECHNIQUE: Frontal and lateral views of the chest are obtained. FINDINGS: The heart size is normal. The pulmonary vasculature is normal. The lungs are clear. There is hyperinflation flattening the diaphragms compatible with COPD. Sternot april wires are in the midline compatible with prior CABG. IMPRESSION: 1. No acute pulmonary process. 2. COPD
== END | disposition home or self-care (01) ==
LOC: RADXRMAIN 10:56
PROVIDERS: ATTEND Urology
DX: C64.1 Malignant neoplasm of right kidney, except renal pelvis (principal); J44.9 Chronic obstructive pulmonary disease, unspecified
CPT/HCPCS: 71046

== ENCOUNTER → 2024-12-07 | Outpatient (CLI) | payer MEDICARE, BC ==
--- NOTE | 2024-12-07 21:58 | US ---
EXAMINATION TYPE: US kidneys/renal and bladder DATE OF EXAM: 12/07/2024 COMPARISON: 03/17/2023 CLINICAL INDICATION: Male, 69 years old with history of N18.31 CKD nttnh2D; Hx right nephrectomy due to CA TECHNIQUE: Grayscale imaging of the bilateral kidneys and urinary bladder: FINDINGS: EXAM MEASUREMENTS: Right Kidney: Surgically absent Left Kidney: 13.0 x 6.3 x 5.6 cm Post Void Residual Volume: 8.75 mL Right Kidney: Surgically absent Left Kidney: Mild compensatory hypertrophy. No hydronephrosis. Bladder: Appears anechoic Bilateral Jets seen: Left jet seen Normal Post Void Residual: Yes IMPRESSION: Status post right nephrectomy. Some compensatory hypertrophy of the left kidney. No hydronephrosis se en on the left. [facility], , 12/07/2024 9:56 PM
== END | disposition home or self-care (01) ==
LOC: RADUSWWP 13:36
PROVIDERS: ATTEND Internal Medicine Nephrology
DX: N18.31 Chronic kidney disease, stage 3a (principal); Z90.5 Acquired absence of kidney
CPT/HCPCS: 76770